=== PATIENT | female | born 1990 | race Caucasian/White ===

== ENCOUNTER → 2021-05-19 15:27 | Outpatient (CLI) | payer OTHER, SELFPAY ==
--- NOTE | ~2021-05-19 | XR_ITS ---
XR foot RT min 3V 05/19/2021 15:47 INDICATION: Right foot pain for 10 months PROCEDURE: 4 views right foot COMPARISON: No prior studies for comparison. FINDINGS: Fracture, dislocation or subluxation is not identified. Lisfranc joint is intact. The soft tissues appear within normal limits. No foreign bodies are identified. IMPRESSION: 1: NO ACUTE BONE OR JOINT ABNORMALITY IDENTIFIED. Reviewed, dictated and finalized at location B. 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
--- NOTE | ~2021-05-19 | XR_ITS ---
XR shoulder RT min 2V 05/19/2021 15:49 INDICATION: Right shoulder pain after recent fall PROCEDURE: 4 views right shoulder COMPARISON: No prior studies for comparison. FINDINGS: Fracture, dislocation or subluxation is not identified. The soft tissues appear within norm al limits. No foreign bodies are identified. IMPRESSION: 1: NO ACUTE BONE OR JOINT ABNORMALITY IDENTIFIED. Reviewed, dictated and finalized at location B. 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
== END ==
PROVIDERS: PCP Nurse Practitioner Family; Visit Provider Nurse Practitioner Family
DX: M25.511 Pain in right shoulder (principal); M79.671 Pain in right foot
CPT/HCPCS: 73030; 73630

== ENCOUNTER 2022-01-12 08:15 | Outpatient (RCR) | payer OTHER, SELFPAY ==
--- NOTE | 2021-10-22 14:37 | PTOPEVAL ---
PHYSICAL THERAPY EVALUATION AND PLAN OF CARE Thank you for referring Pooja Khoury to [facility] [place] The patient is scheduled to be seen for therapy?1-2X/week for 4 weeks. Please review, sign, date and return this plan of care MYRNA. I agree with and certify that the following plan of care is medically necessary. Referring Physician Date Attending Provider: Alla Salinas NP Diagnosis right foot pain, right shoulder pain Onset 1.5 years ago Subjective Information right foot pain: started to Query Text:As Reported By Patient/ have pain from being on her Family feet and has persisted for over a year with associated compensations and now pain in the bottom of the foot. Is painful throughout the day but worst first thing in the morning and after being on her feet all day she will sit and then to stand up is very painful. right shoulder pain: was sledding and she fell and her shoulder was hyperextended. It clicks and she hears crepitus . Feels like her ROM is limited and she always has a little achey pain. Self Report Pain Assessment Right Foot/Feet Reported Pain Level 4 Pain Description Sharp Pain Frequency Chronic,Intermittent Lowest Pain Intensity 2 Greatest Pain Intensity 9 Pain Aggravating Factors Walking,Weight Bearing/ Standing Right Shoulder(s) Reported Pain Level 3 Pain Description Aching Pain Frequency Acute,Intermittent Other Pain Aggravating Factors elevation; sleeping Pain Score Pain Score 3,4: Self Report Interventions Used Interventions Used By Clinicians Education,Exercise Pain Relief Interventions Used By Inactivity/Rest Patient Upper Extremity Range of Motion General Upper Extremity Range of Motion Gross Upper Extremity Range of Motion generally WFL with limited end Comments range bilaterally; behind back IR both scpaula wing Lower Extremity Range of Motion Ankle/Foot Range of Motion Right Ankle Dorsiflexion With Knee Extension 12 Range of Motion - Active Ankle Plantarflexion Range of Motion - 55 Active Query Text: Ankle Eversion Range of Motion - Active 20 Ankle Inversion Range of Motion - A
--- NOTE | 2021-12-04 15:12 | PCPTNOTE ---
Addendum entered by Michelle Manuel, PT 12/05/21 08:56: 12-05-21: entered in ERROR---pt had called for reevaluation appt for today, to continue therapy; see reevaluation/progress report and continue PT treatment Original Note: PHYSICAL THERAPY DISCHARGE REPORT 12-04-21 Attending Provider: Alla Salinas NP Patient:Pooja Kohury Date of :1990 Pooja has not returned for any further treatments since 10/31/2021, therefore she will be discharged at this time. She received 4 PT sessions, from October 22 to October 31, for the diagnosis of R shoulder pain and R foot pain. Then stopped attending therapy. The goals were not addressed. Thank you for referring this patient to [facility].
--- NOTE | 2021-12-05 08:46 | PTOPPROG ---
Evaluation Information Assessment Status Re-evaluation Subjective Information Pooja reports: certain motions of shoulder still hurt-different from before, but still hurts; heel is still a problem--pain varies week to week; have been trying to keep up with the exercises; sometimes work 10 hours and pain increases then; have been going to the fitness center and doing arm weights and aerobic exercises; want to continue therapy for her shoulder and foot; pain rating R shoulder 3-7/10 and R foot/heel 2-9/10. Assessment PT Clinical Summary Pooja has received 4 PT sessions from October 22 to October 31; then stopped attending therapy. Then called for today's reeval appt. Compared to the initial evaluation: pain rating at the low is the same and high rating for foot decreased from 9 to 7/10 and shoulder increased from 4 to 7/10; slight increase in ankle strength She has been educated on a home exercise program and correct posture; She continues to have increased pain with standing and walking over foot and with shoulder- use of arm with overhead tasks and lifting, with poor scapular-humeral rhythm and winging of scapula. Continue PT treatment for R shoulder impingement and R plantar fascitis. Plan of Care Interventions Electrical Stimulation,Hot Pack/Cold Pack,Manual Therapy,Neuro Re-education,Patient/Caregiver Education,Therapeutic Activities,Therapeutic Exercise,Ultrasound PT Services Indicated Yes Treatment Frequency and 2x/wk for 4 weeks Duration These treatments will address the objective and functional deficits as defined above. The patient will be advanced safely and appropriately in order for the patient to progress towards his/her prior level of function. Additional exercises will be introduced and as well as a comprehensive home exercise program upon discharge, if needed, ?to ensure carryover of functional gains achieved in the clinic. This treatment plan has been reviewed and agreement upon by the patient.
--- NOTE | 2021-12-16 09:59 | PCPTNOTE ---
Patient did not show up for scheduled appointment this date. Called patient and reminded her of her next appointment.
--- NOTE | 2022-01-01 11:51 | PTOPPROG ---
Assessment and note entered by Michelle Manuel, PT Evaluation Information Assessment Status Re-evaluation/progress Subjective Information Pooja reports shoulder is better; foot is about the same, depends upon what she has done; have new shoes for work that help some; pain moves in her foot-always at the heel but moves along front part of foot; Assessment PT Clinical Summary Pooja has had 12 PT sessions for R foot and R shoulder pain. Compared to the last reeval: pain in foot is the same at the low rating and increased at high rating from 7 to 8/10; she does have new, more supportive shoes for work; shoulder pain rating decreased both low and high ratings, from 3-7/10 to 1-5/10; strength of R shoulder has improved- no longer has the winging of her scapula; R foot and ankle strength has improved with single leg PF from 8 to 23 reps; Modalities are decreasing her foot pain; continue PT treatment for her foot; discontinue treatment for her shoulder--to continue with the home exercises and monitoring her posture. Plan of Care Interventions Electrical Stimulation,Hot Pack/Cold Pack,Manual Therapy,Therapeutic Activities,Therapeutic Exercise,Ultrasound,Other Other Interventions fluidotherapy PT Services Indicated Yes Treatment Frequency and 2x/wk for 3 weeks Duration These treatments will address the objective and functional deficits as defined above. The patient will be advanced safely and appropriately in order for the patient to progress towards his/her prior level of function. Additional exercises will be introduced and as well as a comprehensive home exercise program upon discharge, if needed, ?to ensure carryover of functional gains achieved in the clinic. This treatment plan has been reviewed and agreement upon by the patient.
--- NOTE | 2022-01-13 15:51 | PCPTNOTE ---
This treatment is being continued on visit number [id number]. Please see documentation on both accounts to view progress. Completed interventions, outcomes, and problems have been marked as Inactive to facilitate the copying of the Care plan routine for recurring accounts.
== END 2022-01-13 15:36 | disposition home or self-care (01) ==
LOC: ANHPT 08:15
PROVIDERS: PCP Nurse Practitioner Family; Visit Provider Nurse Practitioner Family
DX: M25.511 Pain in right shoulder (principal); M79.671 Pain in right foot
CPT/HCPCS: 97035; 97110; 97112; 97140; 97162; 99199

== ENCOUNTER 2022-01-30 09:30 | Outpatient (RCR) | payer OTHER, SELFPAY ==
--- NOTE | 2022-01-19 10:35 | PCPTNOTE ---
Patient called & cancelled scheduled appointment this date due to being called to pick child up from school unexpectedly.
--- NOTE | 2022-01-21 08:26 | PCPTNOTE ---
Patient did not show up for scheduled appointment this date; called patient who stated she thought it was later in the week either or Wednesday apologized and will keep her informed on any cancellations.
--- NOTE | 2022-01-30 10:21 | PTOPDC ---
Assessment and note entered by Michelle Manuel, PT Evaluation Information Assessment Status Discharge Subjective Information Pooja reports: have been working more, continue to do 10 hour shifts; no longer have the heel pain in foot, trying to walk better with weight on entire bottom of foot and not favor the arch area feel like she is ready to be finished with therapy; Reported Pain Level Pain Score Self Report Additional Pain Score Comments pain range of 2-6/10, R bottom of foot mid to distal aspect/ metatarsal to ball of foot; tight, sore, tender to touch; increase with walking and standing, can do what she needs to do, but when sit down hurts; pain when first get up out of bed ; decrease pain with rubbing foot, stretching; is using ice, but not as much anymore; leukotape strip horizontal over distal forefoot, to stabilize metatarsals; Assessment PT Clinical Summary Pooja has received a total of 16 PT sessions for the diagnosis of R plantar fasciitis and R shoulder impingement. Since the last reeval of the foot: pain rating at the low rating is the same 2/10 and worst rating has decreased from 8 to 6/10; the pain is no longer in her heel, only along the distal aspect of her 5th metatarsal; there is not any tenderness over heel or arch of foot with palpation; She reports that she is able to do all of her work and home tasks, but when she sits down, has more pain. And pain when she first wakes up in the morning. Education has been completed for home exercises, management techniques for pain. The goals were partially met. Discharge PT services. Plan of Care PT Services Indicated No
== END 2022-02-02 12:22 | disposition home or self-care (01) ==
LOC: ANHPT 09:30
PROVIDERS: PCP Nurse Practitioner Family; Visit Provider Nurse Practitioner Family
DX: M25.511 Pain in right shoulder (principal); M79.671 Pain in right foot
CPT/HCPCS: 97035; 97110; 97140; 99199

== ENCOUNTER 2022-04-24 13:52 | Emergency (ER) | payer OTHER, SELFPAY ==
[2022-04-24 14:01] VITALS: BP 123/60; PULSE 69; RESP 18; TEMP 36.3; O2SAT 100
[2022-04-24 14:03] VITALS: BP 123/60; PULSE 69; RESP 18; TEMP 36.3; O2SAT 100
--- NOTE | 2022-04-24 14:11 | ED.URI ---
HPI - URI/Sore Throat General Chief Complaint: Upper Respiratory Infection Stated Complaint: Ear/Nose/ Throat Time Seen by Provider: 04/24/22 14:11 Source: patient, RN notes reviewed and old records reviewed Mode of arrival: ambulatory Limitations: no limitations History of Present Illness HPI Narrative: 31 year old female who presents to [facility] care with complaints of ear fullness, ear pain, sinus drainage, sneezing, sore throat, cough for the past 4 days with no known fevers. Patient reports that she has been taking Daytime cold and flu OTC medications. Patient reports thatshe has had COVID vaccinations but no flu shot, patient reports home Covid test negative today. Patient denies any shortness of breath or any body aches or chills. MD elicited complaint: cough, sore throat, rhinorrhea, nasal congestion and other (ear pain) Onset (ago): day(s) (4) Pain scale (0-10): 5 Treatments prior to arrival: other (Daytime cold and flu medication) Related Data Home Medications Medication Instructions Recorded Confirmed drospirenone 3 mg-ethinyl 1 tablet PO DAILY 05/19/21 04/24/22 estradiol 0.02 mg tablet inulin 2 gram chewable tablet 2 g PO DAILY 05/19/21 04/24/22 (Fiber Gummies) magnesium 250 mg tablet 250 mg PO DAILY 05/19/21 04/24/22 spironolactone 25 mg tablet 25 mg PO DAILY 05/19/21 04/24/22 Allergies Allergy/AdvReac Type Severity Reaction Status Date / Time Sulfa (Sulfonamide AdvReac Nausea Verified 04/24/22 14:01 Antibiotics) Review of Systems Review of Systems: CONSTITUTIONAL: Denies malaise, chills, sweats, or fever. EYES: Denies visual changes, redness, or discharge. ENT: Reports rhinorrhea, congestion, sinus pain, otalgia and sore throat. CARDIOVASCULAR: Denies chest pain, palpitations, or edema. RESPIRATORY: Reports cough.? Denies dyspnea. GASTROINTESTINAL: Denies abdominal pain, nausea, vomiting, diarrhea SKIN: Denies rash or itching. MUSCULOSKELETAL: Denies myalgia. NEUROLOGIC: Denies headache. All systems reviewed & are unremarkable except as noted in HPI and below PMFSH Past Medical History Medical History Acephalgic migraine Acne Anxiety BMI 26.0-26.9,adult BMI 27.0-27.9,adult BMI 28.0-28.9,adult Cystic acne Depression Elevated fasting glucose Encounter to establish care Mitral valve prolapse Ophthalmic migraine Right foot pain Right shoulder pain Surgical History Surgical History No pertinent past surgical history Family History Family History Mother Hypertension Depression Father Non Hodgkin's lymphoma Sibling Depression Grandparent Breast cancer Bladder cancer Esophageal cancer Grandparent Cancer Social History Social History Smoking status: Never smoker Alcohol intake: current Substance use: never Lack of Transportation: No Lack of Food: Never True Current Housing: I Have Housing Concerned About Future Housing: No Difficulty Paying Gas/Electric Bills: No Difficulty Paying for Meds: No Currently Unemployed: No Education: Associate Degree Difficulty w/ Childcare or Family Care: No Comments At time of signature, agree with nursing past medical, surgical, social and family history. There is no relevant family history pertinent to the presenting complaint Exam Narrative: GENERAL: Well-appearing, well-nourished, and in no acute distress. HEAD: Normocephalic EYES: PERRLA, conjunctivae clear ENT: Nares clear, turbinates edematous and erythematous, clear discharge. Mucous membranes moist.Left TM dull and bulging, Right TM pearly torres with dull light reflex; no tragal tenderness. Oropharynx erythematous without lesions. Tonsils not enlarged and without exudate, no drooling, no hoarseness, no trismus, uvu
== END 2022-04-24 14:58 | disposition home or self-care (01) ==
PROVIDERS: Emergency Provider Registered Nurse; PCP Nurse Practitioner Family
DX: H66.92 Otitis media, unspecified, left ear (principal); I34.1 Nonrheumatic mitral (valve) prolapse; F41.9 Anxiety disorder, unspecified; F32.A Depression, unspecified
CPT/HCPCS: 87081; 87880; 99213; G0463

== ENCOUNTER 2022-07-20 18:16 | Emergency (ER) | payer OTHER, SELFPAY ==
[2022-07-20 18:30] VITALS: BP 131/68; PULSE 71; RESP 16; TEMP 37.1; O2SAT 100
--- NOTE | 2022-07-20 18:35 | ED.URI ---
HPI - URI/Sore Throat General Chief Complaint: Upper Respiratory Infection Stated Complaint: Sore Throat Time Seen by Provider: 07/20/22 18:35 Source: patient Mode of arrival: ambulatory Limitations: no limitations History of Present Illness HPI Narrative: 32-year-old female presents with complaint of sinus congestion, sinus pain, postnasal drainage, sore throat for 10 days. Is not taking any [id number] medications to treat her symptoms. Afebrile. Reports throat pain worse the past few days. Denies nausea vomiting diarrhea. No chest pain or shortness of breath. All systems reviewed and negative except as noted above. Related Data Home Medications Medication Instructions Recorded Confirmed drospirenone 3 mg-ethinyl 1 tablet PO DAILY 05/19/21 07/20/22 estradiol 0.02 mg tablet spironolactone 25 mg tablet 25 mg PO DAILY 05/19/21 07/20/22 Allergies Allergy/AdvReac Type Severity Reaction Status Date / Time Sulfa (Sulfonamide AdvReac Nausea Verified 04/24/22 14:01 Antibiotics) Review of Systems Review of Systems: CONSTITUTIONAL: Denies fever, chills, or sweats. EYES: Denies visual changes, redness, or discharge. ENT: Reports rhinorrhea, congestion, sore throat, sinus pain, bilateral ear pressure. CARDIOVASCULAR: Denies chest pain, palpitations, or edema. RESPIRATORY: Denies cough or dyspnea. GASTROINTESTINAL: Denies abdominal pain, nausea, vomiting, or diarrhea. GENITOURINARY: Denies dysuria or hematuria. SKIN: Denies rash or itching. MUSCULOSKELETAL: Denies back pain, joint pain, or myalgia. NEUROLOGIC: Denies headache, numbness, or weakness. PSYCHIATRIC: Denies anxiety or depression. All other systems reviewed are negative, except as documented in HPI. [facility] Past Medical History Medical History Acephalgic migraine Acne Anxiety BMI 26.0-26.9,adult BMI 27.0-27.9,adult BMI 28.0-28.9,adult Cystic acne Depression Elevated fasting glucose Encounter to establish care Mitral valve prolapse Ophthalmic migraine Right foot pain Right shoulder pain Surgical History Surgical History No pertinent past surgical history Family History Family History Mother Hypertension Depression Father Non Hodgkin's lymphoma Sibling Depression Grandparent Breast cancer Bladder cancer Esophageal cancer Grandparent Cancer Social History Social History Smoking status: Never smoker Alcohol intake: current Substance use: never Lack of Transportation: No Lack of Food: Never True Current Housing: I Have Housing Concerned About Future Housing: No Difficulty Paying Gas/Electric Bills: No Difficulty Paying for Meds: No Currently Unemployed: No Education: Associate Degree Difficulty w/ Childcare or Family Care: No Comments At time of signature, agree with nursing past medical, surgical, social and family history. There is no relevant family history pertinent to the presenting complaint. Exam Narrative: GENERAL: This is a well-nourished, well-developed patient, in no apparent distress. HEAD: normocephalic, atraumatic. EYES: PERRL. Sclera clear/white. Vision is grossly intact. EARS: External ears normal, auditory canals clear and without drainage, TMs normal without perforation. Hearing grossly intact. NOSE: External nose normal with Clear nasal drainage with erythema to both nares. Bilateral maxillary sinus tenderness. THROAT: Mucous membranes moist, Mild erythema postnasal drainage. NECK: Neck supple, non-tender without lymphadenopathy, masses or thyromegaly. CARDIOVASCULAR: Regular rate and rhythm without murmurs, gallops, or rubs. RESPIRATORY: Clear to auscultation. Breath sounds equal bilaterally. No wheezes, rales, or rhonchi. SKIN: warm, Dry
== END 2022-07-20 18:47 | disposition home or self-care (01) ==
PROVIDERS: Emergency Provider Nurse Practitioner Family; PCP Nurse Practitioner Family
DX: J01.90 Acute sinusitis, unspecified (principal); I34.1 Nonrheumatic mitral (valve) prolapse; F41.9 Anxiety disorder, unspecified; F32.A Depression, unspecified
CPT/HCPCS: 87081; 87880; 99213; G0463

== ENCOUNTER 2022-08-22 16:37 | Emergency (ER) | payer OTHER, SELFPAY ==
[2022-08-22 16:40] VITALS: BP 130/80; PULSE 90; RESP 18; TEMP 36.5; O2SAT 100
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
== END 2022-08-22 17:47 | disposition home or self-care (01) ==
PROVIDERS: Emergency Provider Physician Assistant; PCP Nurse Practitioner Family
DX: M54.2 Cervicalgia (principal); F32.A Depression, unspecified; F41.9 Anxiety disorder, unspecified; V43.52XA Car driver injured in collision with other type car in traffic accident, initial encounter
CPT/HCPCS: 99283

== ENCOUNTER → 2024-05-05 13:32 | Outpatient (CLI) | payer OTHER, SELFPAY ==
--- NOTE | ~2024-05-05 | XR_ITS ---
EXAMINATION: XR foot RT min 3V DATE: 05/05/2024 13:48 INDICATION: Right foot pain TECHNIQUE: Dorsoplantar, two oblique and lateral views of the right foot were obtained. COMPARISON: 05/19/2021 FINDINGS: Bone alignment is normal. No fracture. Joint spaces are normal. Small plantar calcaneal spur. Soft ti ssues are unremarkable. IMPRESSION: 1. Small plantar calcaneal spur. Otherwise unremarkable right foot radiographs. Reviewed, dictated and finalized at location B. [facility] PICKER
--- OUTSIDE RECORDS SUMMARY | 2024-05-05 13:35 | XMS_ITS | Clinical Summary ---
Author Organization [facility] [employer] Address [address] [place] [address] Care Team Providers Care Digital Retoucher Name Role Phone Patricia Martinez ISAIAH-UNIFORM MAKER Primary Care Provider [phone] Source Comments [facility] [employer],non-owned Affiliates and Associated Physician Practices is amultiple site organization consisting of ambulatory clinics and hospital sitesin [place], [place], [place] and [place]. This disclosure is being madepursuant to the Care Everywhere program and may not contain all information available regarding this patient. Last updated 17.[facility] [employer] Allergies Active Allergy Reactions Criticality Noted Date Comments Sulfa Drugs Nausea and/or Vomiting 04/01/2017 Medications * Be aware that medications may not be up to date on this document. Alwaysverify current medications with the patient. Medication Sig Dispensed Refills Start Date End Date Status LORazepam (ATIVAN) 0.5 MG tablet 10/11/2018 Active NUVARING 0.12-0.015 MG/24HR vaginal ring 4 01/02/2019 Active Immunizations Name Administration Dates Next Due INFLUENZA VACCINE 01/10/2019 Family History Medical History Relation Name Comments Lymphoma Father Cancer - Bladder Maternal Grandfather Cancer - Esophageal Maternal Grandfather Cancer - Breast Maternal Grandmother Cancer-Breast Premenopausal Maternal Grandmother Cancer - Breast Maternal Great-Grandmother Cancer - Liver Maternal Uncle Cancer - Breast Paternal Aunt Relation Name Status Comments Father Maternal Grandfather Maternal Grandmother diagnos ed at 40 years Maternal Great-Grandmother Maternal Uncle Paternal Aunt Social History Tobacco Use Types Packs/Day Years Used Date Smoking Tobacco: Never Smokeless Tobacco: Never Alcohol Use Standard Drinks/Week Comments Yes 0 (1 standard drink = 0.6 oz pur e alcohol) AUDIT-C Answer Date Recorded Frequency of Alcohol Consumption 2-3 times a wee k 12/28/2018 Average Number of Drinks 3 or 4 019 Frequency of Binge Drinking Less than monthly Sex and Gender Information Value Date Recorded Sex Assigned at Not on file Gender Identity Not on file Sexual Orientation Not on file Last Filed Vital Signs Vital Sign Reading Time Taken Comments Blood Pressure 115/64 02/15/2019 1:56 PM YARD LABORER Pulse 88 02/15/2019 1:56 PM YARD LABORER Temperature 37.3 C (99.1 F) 02/15/2019 1:56 PM YARD LABORER Respiratory Rate 20 02/15/2019 1:56 PM YARD LABORER Oxygen Saturation 99% 02/15/2019 1:56 PM YARD LABORER Inhaled Oxygen Concentration - - Weight 59.9 kg (132 lb) 02/15/2019 1:56 PM YARD LABORER Height 160 cm (5' 3 ) 02/15/2019 1:56 PM YARD LABORER Body Mass Index 23.38 02/15/2019 1:56 PM YARD LABORER Plan of Treatment Health Maintenance Due Date Last Done Comments PAP SMEAR 1989 HIV SCREENING 2004 HEPATITIS C SCREENING 05/24/2007 DTAP/TDAP/TD VACCINES (1 - Tdap) 2008 HEPATITIS B VACCINE (1 of 3 - 19+ 3-dose series) 2008 COVID-19 VACCINE ( - 2023-2 5 season) 2023 INFLUENZA VACCINE (#1) 2023 9, 01/10/2019 DEPRESSION SCREENING 03/29/2024 ZOSTER VACCINE (1 of 2) 05/29/2039 HIB VACCINE Aged Out No longer eligi ble based on patient's age to complete this topic HPV VACCINE Aged Out No longer eligi ble based on patient's age to complete this topic MENINGOCOCCAL (Group B) VACCINE Aged Out No longer eligible b ased on patient's age to complete this topic MENINGOCOCCAL VACCINE Aged Out No venus abelardo eligible based on patient's age to complete this topic PNEUMOCOCCAL VACCINE Aged Out No long er eligible based on patient's age to complete this topic Care Teams Digital Retoucher Relationship Specialty Start Date End Date Patricia Martinez APRN-DARWIN [address] [place] [address] PCP - General 12/28/18
--- OUTSIDE RECORDS SUMMARY | 2024-05-05 13:35 | XMS_ITS | Clinical Summary ---
Author Organization [facility] Care Team Providers Care Car Painter Name Role Phone Unavailable Primary Care Provider Unavailabl e Social History Tobacco Use Types Packs/Day Years Used Date Smoking Tobacco: Never Assessed Comments Unknown Sex and Gender Information Value Date Recorded Sex Assigned at Not on file Legal Sex Female 2:16 PM CNC SERVICE ENGINEER Gender Identity Not on file Sexual Orientation Not on file Plan of Treatment Health Maintenance Due Date Last Done Comments Hepatitis C Virus (HCV) Screening 1989 Pap Smear 2010 Cervical Cancer Screening (CCS) 05/29/2019 HPV/Cotest 05/29/2019 Hepatitis B Immunization (2 of 3 - 19+ 3-dose series) 08/29/2019 08/01/2019 Influenza Immunization (#1) 2023 01/27/2019 SARS-COV-2 Immunization (2023- season) 2023 Respiratory Syncytial Virus (RSV) Immunization (Adult) (1 - 1-dose 75+ series) 2064 DTaP/Tdap/Td Immunization Discontinued 2014, 10/22/1994 TdaP Immunization Completed 04/04/2014 Meningococcal Immunization (ACWY) Aged Out No longer eligible based on patient's age to complete this topic Pneumococcal Immunization Combined Aged Out No longer eligible based on patient's age to complete this topic Rotavirus Immunization Aged Out No lo nger eligible based on patient's age to complete this topic
--- OUTSIDE RECORDS SUMMARY | 2024-05-05 13:35 | XMS_ITS | Patient Health Summary ---
Author Organization [facility] Address [address] [place] [address] Care Team Providers Care Library Media Specialist Name Role Phone Patricia Martinez APRN-CYLINDER BATCHER Primary Care Provider [phone] Note from [facility],non-owned Affiliates and Associated Physician Practices is amultiple site organization consisting of ambulatory clinics and hospital sitesin [place], [place], [place] and [place]. This disclosure is being madepursuant to the Care Everywhere program and may not contain all information available regarding this patient. Last updated 17.[facility] Allergies * Sulfa Drugs(Nausea and/or Vomiting) Medications * Be aware that medications may not be up to date on this document. Alwaysverify current medications with the patient. * LORazepam (ATIVAN) 0.5 MG tablet(Started 10/11/2018) * NUVARING 0.12-0.015 MG/24HR vaginal ring(Started 01/02/2019) 4 refills left Immunizations * INFLUENZA VACCINE(Given 01/10/2019) Social History Tobacco Use Types Packs/Day Years [...] Comments Blood Pressure 115/64 02/15/2019 1:56 PM DELIVERY PERSON Pulse 88 02/15/2019 1:56 PM DELIVERY PERSON Temperature 37.3 C (99.1 F) 02/15/2019 1:56 PM DELIVERY PERSON Respiratory Rate 20 02/15/2019 1:56 PM DELIVERY PERSON Oxygen Saturation 99% 02/15/2019 1:56 PM DELIVERY PERSON Inhaled Oxygen Concentration - - Weight 59.9 kg (132 lb) 02/15/2019 1:56 PM DELIVERY PERSON Height 160 cm (5' 3 ) 02/15/2019 1:56 PM DELIVERY PERSON Body Mass Index 23.38 02/15/2019 1:56 PM DELIVERY PERSON Procedures * US BREAST BILATERAL COMPLETE(Performed 02/15/2019) Performed for Lump or mass in breast * MAMMO BILAT SCREENING(Performed 02/15/2019) Performed for Screening for breast cancer * US BREAST RIGHT LTD(Performed 12/28/2018) Performed for Lump or mass in breast * SONOGRAM - COMPLETE(Performed 07/25/2012) Results * US BREAST BILATERAL COMPLETE (02/15/2019 4:10 PM DELIVERY PERSON) Anatomical Region Laterality Modality Breast Bilateral Mammography 02/15/2019 3:26 PM DELIVERY PERSON Impressions 02/15/2019 4:18 PM DELIVERY PERSON IMPRESSION: The right breast palpable lump corresponds to a lipoma. No mammographic or sonographic abnormalities in the areas of clinical concern in the left breast. Clinical management is recommended and should be based on clinical suspicion. No mammographic or sonographic evidence of malignancy in either breast. ASSESSMENT: BI-RADS Category 2: Benign finding(s). RECOMMENDATION: Clinical follow-up and management for symptoms. This report was electronically signed by NADIRA CHANDLER M.D. on 02/15/2019 4:18 PM . Narrative 02/15/2019 4:18 PM DELIVERY PERSON BILATERAL DIAGNOSTIC MAMMOGRAM COMPLETE BILATERAL BREAST ULTRASOUND DATE: 02/15/2019 COMPARISON: None. This is a baseline exam. HISTORY: Screening mammogram. She has a family history of breast cancer in a paternal aunt and maternal grandmother and great grandmother. TECHNIQUE: Images were performed using 3D tomosynthesis images with reconstructed/synthetic 2D images and CAD analysis. BREAST COMPOSITION: The breasts are heterogeneously dense, which may obscure small masses. FINDINGS: Sugarcreek markers aparna the areas of clinical concern in the breasts. Subjacent to the marker in the lower right breast, there is a 3 cm fat density mass. There is no suspicious mass subjacent to the left breast palpable marker. No suspicious mass or calcifications in either breast. Ultrasound of all 4 quadrants, the subareolar breasts, and the axillae performed by the gas line servicer. Ultrasound of the left breast areas of symptoms also performed by the physician. She points to a palpable abnormality in the right breast at 6:00, 5 cm from the nipple. It corresponds to a fat density oval circumscribed mass that measures 3.6 cm. It is similar compared to the prior exam and consistent with a lipoma. She points to palpable abnormalities in the left breast at 11:00 and at 12:30 to 1:00. There is no suspicious solid or cystic mass. No suspicious solid or cystic mass in either breast. No axillary lymphadenopathy. Gisselle Huertas MD US ORDERABLES * MAMMO BILAT SCREENING (02/15/2019 3:35 PM DELIVERY PERSON) Anatomical Region Laterality Modality Breast Bilateral Mammography 02/15/2019 3:26 PM DELIVERY PERSON Impressions 02/15/2019 4:18 PM DELIVERY PERSON IMPRESSION: The right breast palpable lump corresponds to a lipoma. No mammographic or sonographic abnormalities in the areas of clinical concern in the left breast. Clinical management is recommended and should be based on clinical suspicion. No mammographic or sonographic evidence of malignancy in either breast. ASSESSMENT: BI-RADS Category 2: Benign finding(s). RECOMMENDATION: Clinical follow-up and management for symptoms. This report was electronically signed by NADIRA CHANDLER M.D. on 02/15/2019 4:18 PM . Narrative 02/15/2019 4:18 PM DELIVERY PERSON BILATERAL DIAGNOSTIC MAMMOGRAM COMPLETE BILATERAL BREAST ULTRASOUND DATE: 02/15/2019 COMPARISON: None. This is a baseline exam. HISTORY: Screening mammogram. She has a family history of breast cancer in a paternal aunt and maternal grandmother and great grandmother. TECHNIQUE: Images were performed using 3D tomosynthesis images with reconstructed/synthetic 2D images and CAD analysis. BREAST COMPOSITION: The breasts are heterogeneously dense, which may obscure small masses. FINDINGS: Sugarcreek markers aparna the areas of clinical concern in the breasts. Subjacent to the marker in the lower right breast, there is a 3 cm fat density mass. There is no suspicious mass subjacent to the left breast palpable marker. No suspicious mass or calcifications in either breast. Ultrasound of all 4 quadrants, the subareolar breasts, and the axillae performed by the gas line servicer. Ultrasound of the left breast areas of symptoms also performed by the physician. She points to a palpable abnormality in the right breast at 6:00, 5 cm from the nipple. It corresponds to a fat density oval circumscribed mass that measures 3.6 cm. It is similar compared to the prior exam and consistent with a lipoma. She points to palpable abnormalities in the left breast at 11:00 and at 12:30 to 1:00. There is no suspicious solid or cystic mass. No suspicious solid or cystic mass in either breast. No axillary lymphadenopathy. Gisselle Huertas MD MAMMO ORDERABLES * US BREAST RIGHT LTD (12/28/2018 1:46 PM CDT) Anatomical Region Laterality Modality Breast Right Mammography 12/28/2018 1:38 PM CDT Impressions 12/28/2018 2:41 PM CDT IMPRESSION: Mass in the lower right breast measuring 3.7 cm, corresponding to the patient's palpable lump, most consistent with a lipoma. ASSESSMENT: BI-RADS Category 2: Benign finding(s). RECOMMENDATION: Clinical follow-up. Findings and recommendations were discussed with the patient by Dr. Landeros. I, Dr. ANKITA LANDEROS M.D. have personally reviewed and interpreted this examination/study. This report was electronically signed by ANKITA LANDEROS M.D. on 12/28/2018 2:41 PM . Narrative 12/28/2018 2:41 PM CDT EXAMINATION: Limited right breast ultrasound HISTORY: 28-year-old female presenting with a palpable lump in the lower right breast COMPARISON: No prior study is available for comparison at the time of this dictation. FINDINGS: Limited ultrasound of the lower right breast was performed by the generation engineering technologist in the region of the patient's palpable lump. At the 6:00 position, 5 cm from the nipple there is a circumscribed mass with antiparallel orientation which is isoechoic to the adjacent fat measuring 3.7 x 2.8 x 0.9 cm, most consistent with a lipoma. Gisselle Huertas MD US ORDERABLES * SONOGRAM - COMPLETE (07/25/2012 11:31 AM CDT) Anatomical Region Laterality Modality Other 07/25/2012 11:3 1 AM CDT Narrative 08/05/2012 6:57 AM CDT [facility] PHONE: FAX: Pat. Name: POOJA KHOURY Pat. No: [id number] Study Date: 07/25/2012 11:31am , Age: 2 1990, 22 Pregnancies: 2, Para 0, Ab 1 LMP: 02/28/2012 GA by LMP: 21.1 weeks GA by US: 19.9 weeks GA Selected: 19.9 weeks (Sonographic) LESLIE: 12/13/2012 Referring MD: AMARILYS CAMPBELL MD Lithograph Press Operator: Tamanna Blanchard RDMS Hist/Ind: Abnormal Quad Screen Negative Maternitiy 21 MEASUREMENTS & AGE GROWTH EVALUATION Measurement GA Range Source %for GA Ratios ---- ------- ------- BPD 4.7 cm 20.2 (18.5-21.9) Hadlock BPD 59% FL/BPD 0.69 HC 16.9 cm 19.6 (18.1-21.1) Hadlock HC 40% FL/AC 0.21 AC 15.5 cm 20.7 (18.6-22.8) Hadlock AC 66% HC/AC 1.09 (1.06 - 1.25) FL 3.2 cm 20.1 (18.3-21.9) Hadlock FL 55% CI 0.78 (0.70 - 0.86) HL 3.0 cm 20.0 (17.3-22.7) Billy HL 52% GA for sonogram 19.9 wk (18.5-21.3) Weight Estimate: based on (BPD,HC,AC,FL) Hadlock Weight: 346 gm (296-397) Hadlock : 0lbs, 12oz Heart Rate: 148.0 bpm CLINICAL SUMMARY Study Number: 1 A gonzalez fetus is identified in cephalic presentation. The measurements today are consistent with appropriate growth compared to previous examination. The LESLIE selected is based on her LMP and a prior ultrasound examination. The amniotic fluid volume is within normal limits. The placenta is anterior, Grade 1. No major malformations are seen. The patient was advised that ultrasound does not allow detection of all structural or chromosomal abnormalities. IMPRESSION: Single, live, IUP 21w1d RECOMMEND: Follow up ultrasound as clinically indicated. Thank you for allowing us the opportunity to care for your patient. Rios Augustine MD <Electronic Signature> 07/25/2012 12:02pm Revised Amarilys Campbell MD Santosh ORDERABLES Care Teams Library Media Specialist Relationship Specialty Start Date End Date Patricia Martinez APRN-CYLINDER BATCHER [address] [place] [address] PCP - General 12/28/18
--- OUTSIDE RECORDS SUMMARY | 2024-05-05 13:35 | XMS_ITS | Referral Summary ---
Author Organization [facility] [employer] Address [address] [place] [address] Care Team Providers Care Retirement Actuary Name Role Phone Patricia Martinez APRN-MASH FILTER CLOTH CHANGER Primary Care Provider [phone] Source Comments [facility],non-owned Affiliates and Associated Physician Practices is amultiple site organization consisting of ambulatory clinics and hospital sitesin [place], [place], [place] and [place]. This disclosure is being madepursuant to the Care Everywhere program and may not contain all information available regarding this patient. Last updated 17.[facility] [facility] Allergies Active Allergy Reactions Criticality Noted Date [...] Administration Dates Next Due INFLUENZA VACCINE 01/10/2019 Social History Tobacco Use Types Packs/Day Years [...] Comments Blood Pressure 115/64 02/15/2019 1:56 PM COMMUNITY ADVOCATE Pulse 88 02/15/2019 1:56 PM COMMUNITY ADVOCATE Temperature 37.3 C (99.1 F) 02/15/2019 1:56 PM COMMUNITY ADVOCATE Respiratory Rate 20 02/15/2019 1:56 PM COMMUNITY ADVOCATE Oxygen Saturation 99% 02/15/2019 1:56 PM COMMUNITY ADVOCATE Inhaled Oxygen Concentration - - Weight 59.9 kg (132 lb) 02/15/2019 1:56 PM COMMUNITY ADVOCATE Height 160 cm (5' 3 ) 02/15/2019 1:56 PM COMMUNITY ADVOCATE Body Mass Index 23.38 02/15/2019 1:56 PM COMMUNITY ADVOCATE Plan of Treatment Not on file Care Teams Retirement Actuary Relationship Specialty Start Date End Date Patricia Martinez APRN-MASH FILTER CLOTH CHANGER [address] [place] [address] PCP - General 12/28/18
--- OUTSIDE RECORDS SUMMARY | 2024-05-05 13:35 | XMS_ITS | Clinical Summary ---
Author Organization [facility] Address [address] [place] [address] Care Team Providers Care Supervisor Pastry Name Role Phone Patricia Martinez HODAN Primary Care Provider [phone] Allergies Active Allergy Reactions Criticality Noted Date Comments Sulfa Antibiotics Unknown,Nausea and Vomiting 0 04/01/2017 Medications Drospirenone-Et hinyl Estradiol (TYSON) 3-0.02 MG TabIndications: Dysmenorrhea Take 1 tablet by mouth daily. 90 tablet 3 0 Active hydrOXYzine 50 MG tabletIndicatio ns:Depression with anxiety,Primary insomnia Take 1-2 capsules every 8 hours as needed for Panic attacks or insomnia 30 tablet 5 0 Active Erythromycin 2 % GelIndications: Acne vulgaris Apply 1 Application topically 2 (two) times a day. 60 g 0 Active CLINDAMYCIN 1 % gelIndications: Acne vulgaris APPLY EXTERNALLY TO THE AFFECTED AREA TWICE DAILY 60 g 0 Active VITAMIN D2, ERGOCALCIFEROL, 34101 UNITS capsuleIndicati ons:Vitamin D deficiency TAKE 1 CAPSULE BY MOUTH EVERY 7 DAYS 13 capsule 0 Active spironolactone 25 MG tabletIndicatio ns:Acne vulgaris Take 1 tablet (25 mg total) by mouth daily. 90 tablet 2 0 Active LORazepam 0.5 MG tabletIndicatio ns:Depression with anxiety TAKE 1 TABLET(0.5 MG) BY MOUTH EVERY 8 HOURS NEEDED FOR ANXIETY 30 tablet 0 Active citalopram 20 MG tabletIndicatio ns:Depression with anxiety Take 1 tablet (20 mg total) by mouth daily. 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 Depression with anxiety 04/01/2017 History of menorrhagia 04/01/2017 Menses, irregular 04/01/2017 Mitral valve prolapse 04/01/2017 Resolved Problems Problem Noted Date Diagnosed Date Resolved Date School physical exam 07/18/2019 020 Immunizations Name Administration Dates Next Due Dtp 10/22/1994 Hepatitis B(Engerix B Adult) 08/01/2019 Influenza Adult (Generic) 01/27/2019 MMR 10/22/1994 Opv 10/22/1994 Tdap (Boostrix) 04/04/2014 Family History Medical History Relation Comments Cancer Father non hodkins Cancer Maternal Grandmother brast Cancer Maternal Uncle Hypertension Mother Diabetes Paternal Grandfather Cancer Paternal Grandmother Heart Paternal Grandmother Relation Status Comments Father Maternal Grandmother Maternal Uncle Mother Paternal Grandfather Paternal Grandmother Social History Tobacco Use Types Packs/Day Years Used Date Smoking Tobacco: Never Smokeless Tobacco: Never Alcohol Use Standard Drinks/Week Comments Yes 0 (1 standard drink = 0.6 oz pur e alcohol) AUDIT-C Answer Date Recorded Frequency of Alcohol Consumption 2-3 times a wee k 07/18/2019 Average Number of Drinks 3 or 4 020 Frequency of Binge Drinking Never 06/28 PHQ-2 Answer Date Recorded PHQ-2 Score 3 05/15/2019 Comments No Sex and Gender Information Value Date Recorded Sex Assigned at Not on file Legal Sex Female 7:50 PM CDT Gender Identity Not on file Sexual Orientation Not on file Last Filed Vital Signs Vital Sign Reading Time Taken Comments Blood Pressure 128/76 07/18/2019 1:03 PM CDT Pulse 88 07/18/2019 1:03 PM CDT Temperature 37.3 C (99.2 F) 07/18/2019 1:03 PM CDT Respiratory Rate 18 07/18/2019 1:03 PM CDT Oxygen Saturation 99% 07/18/2019 1:03 PM CDT Inhaled Oxygen Concentration - - Weight 60.3 kg (133 lb) 07/18/2019 1:03 PM CDT Height 161.3 cm (5' 3.5 ) 07/18/2019 1:03 PM CDT Body Mass Index 23.19 07/18/2019 1:03 PM CDT Plan of Treatment Health Maintenance Due Date Last Done Comments Cervical Cancer Screening Pa p Smear (Age 30 to 64) Every 3 Years 1989 Pneumococcal Vaccine: Pediatrics (0 to 5 Years) and At-Risk Patients (6 to 64 Years) (1 of 2 - PCV) 05/29/1995 Hepatitis C 05/29/2007 Cervical Cancer Screening Pa p with HPV Testing (Age 30 to 64) Every 5 Years 05/29/2019 Cervical Cancer Screening wi th HPV 05/29/2019 Hepatitis B Vaccines (2 of 3 - 19+ 3-dose series) 08/29/2019 08/01/2019 Annual Physical 07/17/2020 07/18/2019 COVID-19 Vaccine ( - 2023-2 5 season) 2023 Influenza Adult (#1) 2023 01/27/2019 DTaP, Tdap and Td Vaccines ( 2 - Td or Tdap) 04/04/2024 04/04/2014, 10/22/1994 HPV Vaccines Aged Out No longer eligi ble based on patient's age to complete this topic Meningococcal B Vaccine Aged Out No l onger eligible based on patient's age to complete this topic Meningococcal Vaccine Aged Out No venus abelardo eligible based on patient's age to complete this topic RSV Immunizations Under 20 Months Aged Out No longer eligible b ased on patient's age to complete this topic Insurance [place] Care Teams Supervisor Pastry Relationship Specialty Start Date End Date Patricia Martinez FNP [address] [place] [address] PCP - General NURSE PRACTITIONER 03/29/17
== END ==
PROVIDERS: PCP Nurse Practitioner Family; Visit Provider Nurse Practitioner Family
DX: M77.31 Calcaneal spur, right foot (principal)
CPT/HCPCS: 73630

== ENCOUNTER 2024-07-14 14:33 | Emergency (ER) | payer OTHER, SELFPAY ==
--- NOTE | ~2024-07-14 | XR_ITS ---
XR hand LT min 3V Ordering provider: Xu Sanchez MD History: . left middle finger injury . Comparison: None. FINDINGS: BONES: Oblique fracture of the midshaft of the proximal phalanx of the left middle finger. JOINT SPACES: Well maintained. SOFT TISSUES: Unremarkable. IMPRESSION: Fracture of the proximal phalanx of the middle finger. Reviewed, dictated and finalized at location A.
[2024-07-14 14:34] VITALS: BP 128/71; PULSE 92; RESP 18; TEMP 36.6; O2SAT 99
--- OUTSIDE RECORDS SUMMARY | 2024-07-14 14:35 | XMS_ITS | Clinical Summary ---
Author Organization [facility] Care Team Providers Care Dairy Feed Sales Consultant Name Role Phone Unavailable Primary Care Provider Unavailabl e Social History Tobacco Use Types Packs/Day Years Used Date Smoking Tobacco: Never Assessed Comments Unknown Sex and Gender Information Value Date Recorded Sex Assigned at Not on file Legal Sex Female 2:16 PM EMPLOYEE RELATIONS SPECIALIST Gender Identity Not on file Sexual Orientation [...]
--- OUTSIDE RECORDS SUMMARY | 2024-07-14 14:36 | XMS_ITS | Clinical Summary ---
Author Organization [facility] Address [address] [place] [address] Care Team Providers Care Fruit Or Nut Farmer Name Role Phone Patricia Martinez APRN-FIRST RESPONDER Primary Care Provider [phone] Source Comments [facility],non-owned Affiliates and Associated Physician Practices is amultiple site organization consisting of ambulatory clinics and hospital sitesin [place], [place], [place] and [place]. This disclosure is being madepursuant to the Care Everywhere program and may not contain all information available regarding this patient. Last updated 17.[facility] Allergies Active Allergy Reactions Criticality Noted Date Comments Sulfa Drugs Nausea and/or Vomiting 04/01/2017 Medications * Be aware that medications may not be up to date on this document. Alwaysverify current medications with the patient. LORazepam (ATIVAN) 0.5 MG tablet 10/11/2018 Activ e NUVARING 0.12-0.015 MG/24HR vaginal ring 4 01/02/2019 Active Immunizations Immunization Administration Dates Next Due INFLUENZA VACCINE 01/10/2019 [...] Frequency of Binge Drinking Less than monthly Comments No Sex and Gender Information Value Date Recorded Sex Assigned at Not on file Legal Sex Female 5:45 AM CHEF ASSISTANT Gender Identity Not on file Sexual Orientation Not on file Last Filed Vital Signs Vital Sign Reading Time Taken Comments Blood Pressure 115/64 02/15/2019 1:56 PM CHEF ASSISTANT Pulse 88 02/15/2019 1:56 PM CHEF ASSISTANT Temperature 37.3 C (99.1 F) 02/15/2019 1:56 PM CHEF ASSISTANT Respiratory Rate 20 02/15/2019 1:56 PM CHEF ASSISTANT Oxygen Saturation 99% 02/15/2019 1:56 PM CHEF ASSISTANT Inhaled Oxygen Concentration - - Weight 59.9 kg (132 lb) 02/15/2019 1:56 PM CHEF ASSISTANT Height 160 cm (5' 3 ) 02/15/2019 1:56 PM CHEF ASSISTANT Body Mass Index 23.38 02/15/2019 1:56 PM CHEF ASSISTANT Plan of Treatment Health Maintenance Due Date Last Done Comments HIV SCREENING 2004 HEPATITIS C SCREENING 05/24/2007 DTAP/TDAP/TD VACCINES (1 - Tdap) 2008 HEPATITIS B VACCINE (1 of 3 - 19+ 3-dose series) 2008 COVID-19 VACCINE (1 - 2023-2 5 season) 2023 DEPRESSION SCREENING 03/29/2024 INFLUENZA VACCINE (Season Ended) 2024 01/27/2019, 01/10/2019 ZOSTER VACCINE (1 of 2) 05/29/2039 HIB VACCINE Aged Out No longer eligi ble based on patient's age to complete this topic HPV VACCINE Aged Out No longer eligi ble based on patient's age to complete this topic MENINGOCOCCAL (Group B) VACCINE SHARED DECISION-MAKING Aged Out No longer eligible based on patient's age to complete this topic MENINGOCOCCAL GROUPS A/C/Y/W VACCINE Aged Out No longer eligible b ased on patient's age to complete this topic PNEUMOCOCCAL VACCINE Aged Out No long er eligible based on patient's age to complete this topic Insurance [facility] MEDICAID - [place] Care Teams Fruit Or Nut Farmer Relationship Specialty Start Date End Date Patricia Martinez APRN-DARWIN [address] [place] [id number] PCP - General 12/28/18
--- OUTSIDE RECORDS SUMMARY | 2024-07-14 14:36 | XMS_ITS | Clinical Summary ---
Author Organization [facility] Address [address] [place] [address] Care Team Providers Care Advertising Associate Name Role Phone Patricia Martinez HODAN Primary Care Provider [phone] Allergies Active Allergy Reactions Criticality Noted Date [...] 60 g 0 Active VITAMIN D2, ERGOCALCIFEROL, 41344 UNITS capsuleIndicati ons:Vitamin D deficiency TAKE 1 [...] Date School physical exam 07/18/2019 020 Immunizations Immunization Administration Dates Next Due Dtp 10/22/1994 Hepatitis [...] 30 to 64) Every 3 Years 1989 Hepatitis C 05/29/2007 Pneumococcal Vaccine: Pediatrics (0 to 5 Years) and At-Risk Patients (6 to 49 Years) (1 of 2 - PCV) 2008 Cervical Cancer Screening Pa p with HPV Testing (Age 30 to 64) Every 5 Years 05/29/2019 Cervical Cancer Screening wi th HPV 05/29/2019 Hepatitis B Vaccines (2 of 3 - 19+ 3-dose series) 08/29/2019 08/01/2019 Annual Physical 07/17/2020 07/18/2019 COVID-19 Vaccine (1 - 2023-2 5 season) 2023 DTaP, Tdap and Td Vaccines ( 2 [...] patient's age to complete this topic Insurance [place] Care Teams Advertising Associate Relationship Specialty Start Date End Date Patricia Martinez FNP [address] [place] [address] PCP - General NURSE PRACTITIONER 03/29/17
--- OUTSIDE RECORDS SUMMARY | 2024-07-14 14:36 | XMS_ITS | Data Portability ---
Author Organization [facility] Address [address] [place] [address] Assessment Encounter Date Assessment Date Assessment LastModified by Organization Details LastModified Time 07/29/2021 07/29/2021 Annual gynecological exam performed. Patient will come back in a year unless there are new symptoms. Not available 07/29/2021 15:36:53 01/19/2023 01/19/2023 Annual gynecological exam performed. Patient will come back in a year unless there are new symptoms. [email or web address] Not available 01/19/2023 14:42:02 02/14/2024 02/14/2024 Annual gynecological exam performed. Patient will come back in a year unless there are new symptoms. [email or web address] Not available 02/14/2024 12:01:29 Plan of Treatment Reminders Order Date Submit Date Provider Last Modified By Organization Details Last Modified Time Details Appointments None recorded. Lab hbcab (hepatitis B core Ab) igm, serum 2023 [facility] (Lab), [address], [place], [address], 21:42:54 HBsAg (hepatitis B surface Ag), serum 2023 [facility] (Lab), [address], [place], [address], 4 21:42:53 hepatitis C virus Ab, serum 2023 [facility] (Lab), [address], [place], [address], 4 21:42:54 HIV 1+2 AB + HIV 1 p24 Ag, qualitative immunoassay , serum 2023 024 [facility] (Lab), [address], [place], [address], 4 21:42:54 RPR (rapid plasma reagin), serum 2023 024 [facility] (Lab), [address], [place], [address], 4 21:42:54 CMP, serum or plasma 2023 024 [facility] (Lab), [address], [place], [address], 4 21:42:53 hbcab (hepatitis B core Ab) igm, serum 2022 023 [facility] (Lab), [address], [place], [address], 3 22:14:58 HBsAg (hepatitis B surface Ag), serum 2022 023 [facility] (Lab), [address], [place], [address], 3 22:14:57 hepatitis C virus Ab, serum 2022 023 [facility] (Lab), [address], [place], [address], 3 22:14:57 unlisted lab - HIV 1/2 antigen/ant ibody, reflex confirmatio n 2022 023 [facility] (Lab), [address], [place], [address], 3 22:14:57 RPR (rapid plasma reagin), serum 2022 023 [facility] (Lab), [address], [place], [address], 3 22:14:58 Referral primary care provider referral 2020 021 ROMI Not available 2 05:01:10 Procedures None recorded. Surgeries None recorded. Imaging None recorded. Medication Orders spironolact one 25 mg tablet 2023 024 [facility] #[id number], [address], [place], [id number], 4 12:53:15 norethindro ne (contracept ramiro) 0.35 mg tablet 2023 024 [facility] #[id number], [address], [place], [id number], 4 12:52:07 metronidazo le 500 mg tablet 2022 023 [facility] #94021, [address], [place], [id number], 3 12:43:07 spironolact one 25 mg tablet 2022 023 [facility] #88326, [address], [place], [id number], 3 15:20:52 drospirenon e 3 mg-ethinyl estradiol 0.02 mg tablet 2022 023 [facility] #61718, [address], [place], [id number], 4 12:52:12 drospirenon e 3 mg-ethinyl estradiol 0.02 mg tablet 2021 022 funmilayo [facility] #51731, [address], [place], [id number], 4 12:52:12 spironolact one 25 mg tablet 2021 022 [facility] #47890, [address], [place], [id number], 2 15:54:01 Patient TargetsNo targets recorded. Patient InstructionsNo instructions recorded. Reason for Referral Primary Care Provider Referr al for Anxiety Referring Physician: Aide Yip, DIRECTOR OF EDUCATION, Encounter Date: 10/09/2020 Results Created Date Observation Date Name Description Value Unit Range Abnormal Flag Note LastModifiedBy Organization Detail LastModifiedTime 07/30/19 22 07/29/2021 IMAGE GUIDE D PAP AND HPV REGAR DLESS image guided Pap, HPV regardless of Pap result SEE RESULT S BELOW CASE REPOR T: Cytol ogy Gynec ologi davey Repor t Case: [id number] Autho husam marlys Provi ruiz: Carlton Brandt Colle cted: 07/29 1624 LOG HANDLING EQUIPMENT OPERATOR Order ing Locat ion: [place] [facility] Recei saad: 07/30 0759 First Scree n: Radha [place]ar[place] , CT Rescr een: Austyn Tavarez Speci men: Scree adolfo Pap - Image d, Cervi x STATE MENT OF ADEQU ACY: Satis facto ry for evalu ation Trans forma tion zone compo nent absen t. The absen ce of an endoc ervic al compo nent was confi rmed by an addit ional scree ner. FINAL DIAGN OSIS: Negat ramiro for Intra epith elial Lesio n or An greene (NIL) . Elect chris barney chalo d by Austyn Tavarez on 2021 at 9:58 AM ----- ----- ----- ----- ----- ----- ----- ----- ----- ----- ----- ----- ----- ----- ----- ----- ----- ---- HPV RESUL TS: HPV mRNA E6/E7 : No HPV mRNA Detec sae NOTE: This high risk HPV mRNA assay detec ts fourt een high- risk HPV types (16, 18, 31, 33, 35, 39, 45, 51, 52, 56, 58, 59, 66, 68) witho ut diffe renti ation . COMME NT: Note: This speci men was revie wed by a Cytot echno logis t and/o r Patho logis t (as indic ated in this repor t) after evalu ation using the Thinp rep Imagi ng Syste m. CLINI DAVEY INFOR MATIO N: Menst rual Statu s: LMP (if appli cable ): Clini davey Histo ry/Pr eviou s Pap: Type of Neopl db (if appli cable ): Signi fican t Clini davey Findi ngs: Other Histo ry: Hormo mitra (if appli cable ): PAP EDUCA ESTELA L NOTE: The Pap Test is a scree adolfo test with an inher ent false negat ramiro rate. Liqui d-bas ed sampl ing may decre ase, but will not elimi glenna, false negat ramiro resul ts. A negat ramiro resul t does not precl ude the prese nce and/o r devel opmen t of disea se, since the prese nce of abnor mal cells in the sampl e depen ds on the locat ion of the lesio n and sampl ing techn ique. Janice nued regul ar scree adolfo is the best metho d of cance r preve ntion . If repor sae cytol ogic findi ng do not corre late with physi davey and/o r histo rical findi ngs, furth er inves tigat ion is recom bonnie d, as clini jumana ch nted. Not Available [facility] (Lab) [address], [place], [address], 08/06/2021 11:01:15 07/30/19 22 07/29/2021 TRICH OMONA S VAGIN SAROJ (RRNA ) trichomonas vaginalis ribosomal RNA (rrna) Negati ve negati ve Not Available [facility] (Lab) [address] [facility], [place], [address], 08/06/2021 11:01:16 07/30/19 22 07/29/2021 CT/GC (DANIEL) , THINP REP VIAL chlamydia trachomatis, PCR Negati ve negati ve Not Available [facility] (Lab) [address] [facility], [place], [address], 08/06/2021 11:01:16 07/30/19 22 07/29/2021 CT/GC (DANIEL) , THINP REP VIAL neisseria gonorrhoeae, PCR Negati ve negati ve Not Available [facility] (Lab) [address] [facility], [place], [address], 08/06/2021 11:01:16 01/20/20 23 01/19/2023 HEPAT ITIS B SURFA CE ANTIG EN hepatitis B surface antigen Non-re active non-re active This assay was perfo rmed using [employer] Corpo ratio n reage nts and test kits. Value s obtai chilango with other assay metho ds or kits canno t be used inter jordan eably . Not Available [facility] (Lab) [address] [facility], [place], [address], 01/20/2023 22:14:57 01/20/20 23 01/19/2023 HIV 1/2 ANTIG EN/AN TIBOD Y, REFLE X CONFI RMATI ON HIV antigen/anti body Nonrea ctive nonrea ctive HIV-1 antig en and HIV-1 /HIV- 2 antib odies were not detec sae. No labor atory evide nce of HIV infec tion. Not Available [facility] (Lab) [address] [facility], [place], [address], 01/20/2023 22:14:57 01/20/20 23 01/19/2023 HEPAT ITIS C ANTIB ISABELLA SCREE N, REFLE X TO CONFI RMATI ON hepatitis C antibody Non-re active non-re active Antib odies to HCV Not Detec sae, does not exclu de the possi bilit y of expos ure to HCV. Not Available [facility] (Lab) [address] [facility], [place], [address], 01/20/2023 22:14:57 01/20/20 23 01/19/2023 RPR SCREE N/REF RONY TITER /FTA RPR screen Nonrea ctive nonrea ctive Not Available [facility] (Lab) [address] [place], [address], 01/20/2023 22:14:58 01/20/20 23 01/19/2023 HEPAT ITIS B CORE, IGM hepatitis B core IgM antibody Negati ve negati ve Not Available [facility] (Lab) [address] [place], [address], 01/20/2023 22:14:58 01/20/20 23 01/19/2023 IMAGE GUIDE D PAP AND HPV REGAR DLESS image guided Pap, HPV regardless of Pap result SEE RESULT S BELOW CASE REPOR T: Cytol ogy Gynec ologi davey Repor t Case: [id number] Autho husam frankel Provi ruiz: Natasha Barrios, LOG HANDLING EQUIPMENT OPERATOR Colle cted: 01/19 1632 Order ing Locat ion: [place] [facility] Recei saad: 01/20 0909 First Scree n: Strut z, Willi am, CT Rescr een: Yessica Salinas ay, CT Speci men: Scree adolfo Pap - Image d, Cervi x STATE MENT OF ADEQU ACY: Satis facto ry for evalu ation Trans forma tion zone compo nent prese nt FINAL DIAGN OSIS: Negat ramiro for Intra epith elial Lesio n or Malig jc (NIL) . Trich omona s vagin saroj prese nt. Elect chris barney chalo d by Yessica Salinas, CT on 01/25 at 12:19 PM ----- ----- ----- ----- ----- ----- ----- ----- ----- ----- ----- ----- ----- ----- ----- ----- ----- ---- HPV RESUL TS: HPV mRNA E6/E7 : No HPV mRNA Detec sae NOTE: This high risk HPV mRNA assay detec ts fourt een high- risk HPV types (16, 18, 31, 33, 35, 39, 45, 51, 52, 56, 58, 59, 66, 68) witho ut diffe renti ation . COMME NT: This speci men was revie wed by a Cytot echno logis t and/o r Patho logis t (as indic ated in this repor t) after evalu ation using the Thinp rep Imagi ng Syste m. CLINI DAVEY INFOR MATIO N: Menst rual Statu s: LMP (if appli cable ): Clini davey Histo ry/Pr eviou s Pap: Type of Neopl db (if appli cable ): Signi fican t Clini davey Findi ngs: Other Histo ry: Hormo mitra (if appli cable ): PAP EDUCA ESTELA L NOTE: The Pap Test is a scree adolfo test with an inher ent false negat ramiro rate. Liqui d-bas ed sampl ing may decre ase, but will not elimi glenna, false negat ramiro resul ts. A negat ramiro resul t does not precl ude the prese nce and/o r devel opmen t of disea se, since the prese nce of abnor mal cells in the sampl e depen ds on the locat ion of the lesio n and sampl ing techn ique. Janice nued regul ar scree adolfo is the best metho d of cance r preve ntion . If repor sae cytol ogic findi ng do not corre late with physi davey and/o r histo rical findi ngs, furth er inves tigat ion is recom bonnie d, as mendoza densoned. Not Available [facility] (Lab) [address] [facility], [place], [address], 01/25/2023 13:22:49 01/20/20 23 01/19/2023 TRICH OMONA S VAGIN SAROJ (RRNA ) trichomonas vaginalis ribosomal RNA (rrna) Positi ve negati ve abnormal Not Available [facility] (Lab) [address] [facility], [place], [address], 01/25/2023 13:22:50 01/20/20 23 01/19/2023 CT/GC (DANIEL) , THINP REP VIAL chlamydia trachomatis, PCR Negati ve negati ve Not Available [facility] (Lab) [address] [facility], [place], [address], 01/25/2023 13:22:50 01/20/20 23 01/19/2023 CT/GC (DANIEL) , THINP REP VIAL neisseria gonorrhoeae, PCR Negati ve negati ve Not Available [facility] (Lab) [address] [facility], [place], [address], 01/25/2023 13:22:50 03/04/20 23 03/04/2023 CT/GC AND TRICH OMONA S VAGIN SAROJ (RRNA ), URINE chlamydia trachomatis, PCR Negati ve negati ve Not Available [facility] (Lab) [address] [facility], [place], [address], 03/05/2023 14:21:27 03/04/20 23 03/04/2023 CT/GC AND TRICH OMONA S VAGIN SAROJ (RRNA ), URINE neisseria gonorrhoeae, PCR Negati ve negati ve Not Available [facility] (Lab) [address] [facility], [place], [address], 03/05/2023 14:21:27 03/04/20 23 03/04/2023 CT/GC AND TRICH OMONA S VAGIN SAROJ (RRNA ), URINE trichomonas vaginalis ribosomal RNA (rrna) Negati ve negati ve Not Available [facility] (Lab) [address] [facility], [place], [address], 03/05/2023 14:21:27 02/14/20 24 02/14/2024 CMP(C OMPRE HENSI VE METAB OLIC PANEL ) sodium 138 mmol/ L 133-14 6 Not Available [facility] (Lab) [address] [facility], [place], [address], 02/15/2024 21:42:53 02/14/20 24 02/14/2024 CMP(C OMPRE HENSI VE METAB OLIC PANEL ) potassium 4.0 mmol/ L 3.5-5. 1 Not Available [facility] (Lab) [address] [facility], [place], [address], 02/15/2024 21:42:53 02/14/20 24 02/14/2024 CMP(C OMPRE HENSI VE METAB OLIC PANEL ) chloride 106 mmol/ L 98-107 Not Available [facility] (Lab) [address] [facility], [place], [address], 02/15/2024 21:42:53 02/14/20 24 02/14/2024 CMP(C OMPRE HENSI VE METAB OLIC PANEL ) carbon dioxide 26 mmol/ L 21-31 Not Available [facility] (Lab) [address] [facility], [place], [address], 02/15/2024 21:42:53 02/14/20 24 02/14/2024 CMP(C OMPRE HENSI VE METAB OLIC PANEL ) anion gap 6 mmol/ L 4-13 Not Available [facility] (Lab) [address] [facility], [place], [address], 02/15/2024 21:42:53 02/14/20 24 02/14/2024 CMP(C OMPRE HENSI VE METAB OLIC PANEL ) blood urea nitrogen 11 mg/dL 7-[address] [facility] (Lab) [address] [facility], [place], [address], 02/15/2024 21:42:53 02/14/20 24 02/14/2024 CMP(C OMPRE HENSI VE METAB OLIC PANEL ) creatinine 0.83 mg/dL 0.60-1 .30 Not Available [facility] (Lab) [address] [facility], [place], [address], 02/15/2024 21:42:53 02/14/20 24 02/14/2024 CMP(C OMPRE HENSI VE METAB OLIC PANEL ) egfrcr (CKD-epi 2020) >90 mL/mi n/1.7 3_m2 >=60 Not Available [facility] (Lab) [address] [facility], [place], [address], 02/15/2024 21:42:53 02/14/20 24 02/14/2024 CMP(C OMPRE HENSI VE METAB OLIC PANEL ) calcium 8.6 mg/dL 8.3-10 .5 Not Available [facility] (Lab) [address] [facility], [place], [address], 02/15/2024 21:42:53 02/14/20 24 02/14/2024 CMP(C OMPRE HENSI VE METAB OLIC PANEL ) glucose 91 mg/dL 70-100 Not Available [facility] (Lab) [address] [facility], [place], [address], 02/15/2024 21:42:53 02/14/20 24 02/14/2024 CMP(C OMPRE HENSI VE METAB OLIC PANEL ) protein, total 6.5 g/dL 6.4-8. 3 Not Available [facility] (Lab) [address] [facility], [place], [address], 02/15/2024 21:42:53 02/14/20 24 02/14/2024 CMP(C OMPRE HENSI VE METAB OLIC PANEL ) albumin 4.0 g/dL 3.5-5. 0 Not Available [facility] (Lab) [address] [facility], [place], [address], 02/15/2024 21:42:53 02/14/20 24 02/14/2024 CMP(C OMPRE HENSI VE METAB OLIC PANEL ) ALT 13 units /L 9-43 Not Available [facility] (Lab) [address] [facility], [place], [address], 02/15/2024 21:42:53 02/14/20 24 02/14/2024 CMP(C OMPRE HENSI VE METAB OLIC PANEL ) alkaline phosphatase 59 units /L 34-104 Not Available [facility] (Lab) [address] [facility], [place], [address], 02/15/2024 21:42:53 02/14/20 24 02/14/2024 CMP(C OMPRE HENSI VE METAB OLIC PANEL ) AST 12 units /L 13-39 low Not Available [facility] (Lab) [address] [facility], [place], [address], 02/15/2024 21:42:53 02/14/20 24 02/14/2024 CMP(C OMPRE HENSI VE METAB OLIC PANEL ) bilirubin, total 0.3 mg/dL 0.2-1. 2 Not Available [facility] (Lab) [address] [facility], [place], [address], 02/15/2024 21:42:53 02/14/20 24 02/14/2024 HEPAT ITIS B SURFA CE ANTIG EN hepatitis B surface antigen Non-re active non-re active This assay was perfo rmed using [employer] Corpo ratio n reage nts and test kits. Value s obtai chilango with other assay metho ds or kits canno t be used inter jordan eably . Not Available [facility] (Lab) [address] [facility], [place], [address], 02/15/2024 21:42:53 02/14/20 24 02/14/2024 HIV 1/2 ANTIG EN/AN TIBOD Y, REFLE X CONFI RMATI ON HIV antigen/anti body Nonrea ctive nonrea ctive HIV-1 antig en and HIV-1 /HIV- 2 antib odies were not detec sae. No labor atory evide nce of HIV infec tion. Not Available [facility] (Lab) [address] [facility], [place], [address], 02/15/2024 21:42:53 02/14/20 24 02/14/2024 HEPAT ITIS C ANTIB ISABELLA SCREE N, REFLE X TO CONFI RMATI ON hepatitis C antibody Non-re active non-re active Antib odies to HCV Not Detec sae, does not exclu de the possi bilit y of expos ure to HCV. Not Available [facility] (Lab) [address] [facility], [place], [address], 02/15/2024 21:42:54 02/14/20 24 02/14/2024 RPR SCREE N, REFLE X TITER /CONF IRMAT ION RPR screen Nonrea ctive nonrea ctive Not Available [facility] (Lab) [address] [facility], [place], [address], 02/15/2024 21:42:54 02/14/20 24 02/14/2024 HEPAT ITIS B CORE, IGM hepatitis B core IgM antibody Non-re active non-re active IgM anti- HBc not detec sae. Does not exclu de the possi bilit y of expos ure to or infec tion with HBV. Not Available [facility] (Lab) [address] [facility], [place], [address], 02/15/2024 21:42:54 02/14/20 24 02/14/2024 IMAGE GUIDE D PAP AND HPV REGAR DLESS image guided Pap, HPV regardless of Pap result SEE RESULT S BELOW CASE REPOR T: Cytol ogy Gynec ologi davey Repor t Case: [id number] Autho husam g Provi ruiz: Natasha Barrios, SAURABH Colle cted: 02/13 1439 Order ing Locat ion: [place] Patho log[facility] Recei saad: 02/14 1253 First Scree n: Yessica Salinas, CT Speci men: Miguel Angel mata Pap - Image d, Cervi x STATE MENT OF ADEQU ACY: Satis facto ry for evalu ation Trans forma tion zone compo nent prese nt ----- ----- ----- ----- ----- ----- ----- ----- ----- ----- ----- ----- ----- ----- ----- ----- ----- ---- FINAL DIAGN OSIS: Negat ramiro for Intra epith elial Wilfrid garcia or An greene ([facility]) . Funga l organ isms morph ologi jumana consi stent with Lorena da spp. Elect chris barney chalo d by Yessica Salinas, CT on 02/22 at 9:33 AM ----- ----- ----- ----- ----- ----- ----- ----- ----- ----- ----- ----- ----- ----- ----- ----- ----- ---- HPV RESUL TS: HPV mRNA E6/E7 : No HPV mRNA Detec sae NOTE: This high risk HPV mRNA assay detec ts fourt een high- risk HPV types (16, 18, 31, 33, 35, 39, 45, 51, 52, 56, 58, 59, 66, 68) witho ut diffe renti ation . COMME NT: This speci men was revie wed by a Cytot echno logis t and/o r Patho logis t (as indic ated in this repor t) after evalu ation using the Thinp rep Imagi ng Syste m. CLINI DAVEY INFOR MATIO N: Menst rual Statu s: LMP (if appli cable ): Clini davey Histo ry/Pr eviou s Pap: Type of Neopl db (if appli cable ): Signi fican t Clini davey Findi ngs: Other Histo ry: Hormo mitra (if appli cable ): PAP EDUCA ESTELA L NOTE: The Pap Test is a scree adolfo test with an inher ent false negat ramiro rate. Liqui d-bas ed sampl ing may decre ase, but will not elimi glenna, false negat ramiro resul ts. A negat ramiro resul t does not precl ude the prese nce and/o r devel opmen t of disea se, since the prese nce of abnor mal cells in the sampl e depen ds on the locat ion of the lesio n and sampl ing techn ique. Janice nued regul ar scree adolfo is the best metho d of cance r preve ntion . If repor sae cytol ogic findi ng do not corre late with physi davey and/o r histo rical findi ngs, furth er inves tigat ion is recom bonnie d, as clini jumana warrtirso nted. Not Available [facility] (Lab) [address] [facility], [place], [address], 02/23/2024 10:38:00 02/14/20 24 02/14/2024 TRICH OMONA S VAGIN SAROJ (RRNA ) trichomonas vaginalis ribosomal RNA (rrna) Negati ve negati ve Not Available [facility] (Lab) [address] [facility], [place], [address], 02/23/2024 10:38:01 02/14/20 24 02/14/2024 CT/GC (DANIEL) , THINP REP VIAL chlamydia trachomatis, PCR Negati ve negati ve Not Available [facility] (Lab) [address] [facility], [place], [address], 02/23/2024 10:38:02 02/14/20 24 02/14/2024 CT/GC (DANIEL) , THINP REP VIAL neisseria gonorrhoeae, PCR Negati ve negati ve Not Available [facility] (Lab) [address] [facility], [place], [address], 02/23/2024 10:38:02 Result Notes None recorded. Problems Name Problem SNOMED Code Status Onset Date Resolution Date Notes Provider Name and Address Organization Details Recorded Time Depressi ve disorder 10000913 Completed 201605/02/2020 Depressi on NOS;Rocky rded Elsewher e: No Locat ion: [facility] S ource: EHR Supervisor Quilting jayne: N Yahairati ce ID: 0001 Valentin lable Time: 03:15:00 PM Briana Corbin [facility] 15:54:[address] Concept Completed 201805/02/2020 Encntr for general adult medical exam w/o abnormal findings ;Recorde d Elsewher e: No Locat ion: [facility] S ource: EHR Supervisor Quilting jayne: N Yahairati ce ID: 0001 Valentin lable Time: 11:00:00 AM Briana Corbin [facility] 15:54:45 Mass of right breast [id number] Completed 201805/02/2020 Lump in the right breast;R ecorded Elsewher e: No Locat ion: [facility] S ource: EHR Supervisor Quilting jayne: N Yahairati ce ID: 0001 Valentin lable Time: 10:30:00 AM Briana moseley [facility] 15:54:31 Pregnanc y test positive [id number] Completed 201205/02/2020 Pregnanc y examinat ion or test, positive result;R ecorded Elsewher e: No Locat ion: [facility] S ource: EHR Supervisor Quilting jayne: N Yahairati ce ID: 0001 Valentin lable Time: 11:30:00 AM Briana moseley [facility] 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 15:54:47 Pregnanc y test negative [id number] Completed 201605/02/2020 Encounte r for pregnanc y test, result negative ;Recorde d Elsewher e: No Locat ion: [facility] S ource: EHR Supervisor Quilting jayne: N Yahairati ce ID: 0001 Valentin lable Time: 11:45:00 AM Briana moseley, [facility] 15:54:37 Routine antenata l care Completed 201205/02/2020 Supervis ion of other normal pregnanc y;Record ed Elsewher e: No Locat ion: [facility] S ource: EHR Supervisor Quilting jayne: N Yahairati ce ID: 0001 Valentin lable Time: 11:00:00 AM Briana moseley, [facility] 15:54:41 Speciali zed medical examinat ion Completed 201305/02/2020 Gynecolo gical Examinat ion;Rocky rded Elsewher e: No Locat ion: [facility] S ource: EHR Supervisor Quilting jayne: N Yahairati ce ID: 0001 Valentin lable Time: 01:45:00 PM Briana moseley, [facility] 15:54:48 Known OR suspecte d abnormal ity affectin g manageme nt of mother Completed 201205/02/2020 Other known or suspecte d abnormal ity, not elsewher e classifi ed, affectin g manageme nt of mother, antepart um conditio n or complica tion;Rec orded Elsewher e: No Locat ion: [facility] S ource: EHR Supervisor Quilting jayne: N Yahairati ce ID: 0001 Valentin lable Time: 04:49:00 PM Briana moseley [facility] 15:54:29 Primigra rayray [id number] Completed 201205/02/2020 Supervis ion of normal first pregnanc y;Record ed Elsewher e: No Locat ion: [facility] S ource: EHR Supervisor Quilting jayne: N Yahairati ce ID: 0001 Valentin lable Time: 11:30:00 AM Briana moseley [facility] 15:54:40 Anxiety state [id number] Completed 201305/02/2020 Anxiety state, unspecif ied;Rocky rded Elsewher e: No Locat ion: [facility] S ource: EHR Supervisor Quilting jayne: N Yahairati ce ID: 0001 Valentin lable Time: 10:30:00 AM [facility]:54:16 Ultrason ography Completed 201205/02/2020 Antenata l screenin g for malforma tion using ultrason ics;Rocky rded Elsewher e: No Locat ion: [facility] S ource: EHR Supervisor Quilting jayne: N Yahairati ce ID: 0001 Valentin lable Time: 11:30:00 AM Briana moseley [facility] 15:54:49 Antenata l screenin g Completed 201205/02/2020 Antenata l screenin g for malforma tion using ultrason ics;Rocky rded Elsewher e: No Locat ion: [facility] S ource: EHR Supervisor Quilting jayne: N Practi ce ID: 0001 Valentin lable Time: 11:30:00 AM Briana moseley [facility] 15:54:15 Congenit al malforma tion [id number] Completed 201205/02/2020 Antenata l screenin g for malforma tion using ultrason ics;Rocky rded Elsewher e: No Locat ion: [facility] S ource: EHR Supervisor Quilting jayne: N Practi ce ID: 0001 Valentin lable Time: 11:30:00 AM Briana moseley, [facility] 15:54:18 Emotiona l state finding Completed 201605/02/2020 Anxiety depressi on;Recor ded Elsewher e: No Locat ion: [facility] S ource: EHR Supervisor Quilting jayne: N Practi ce ID: 0001 Valentin lable Time: 11:00:00 AM Briana moseley, [facility] 15:54:22 Atypical squamous cells of undeterm ined signific ance on cervical Papanico laou smear [id number] Completed 201505/02/2020 Atyp squam cell of undet signfc cyto smr crvx (ASC-US) ;Recorde d Elsewher e: No Locat ion: [facility]: N Practi ce ID: 0001 Valentin lable Time: 10:30:00 AM Briana moseley, [facility] 15:54:17 Screenin g for malignan t neoplasm of cervix Completed 201205/02/2020 Screenin g for malignan t neoplasm s of the cervix;R ecorded Elsewher e: No Locat ion: [facility] S ource: EHR Supervisor Quilting jayne: N Practi ce ID: 0001 Valentin lable Time: 11:30:00 AM Briana moseley, [facility] 15:54:43 Evaluati on finding Completed 201705/02/2020 Hematuri a, unspecif ied;Rocky rded Elsewher e: No Locat ion: [facility] S ource: EHR Supervisor Quilting jayne: N Practi ce ID: 0001 Valentin lable Time: 10:45:00 AM Briana moseley, [facility] 1 15:54:23 Finding by site Completed 201605/02/2020 Dermatit is, unspecif ied;Rocky rded Elsewher e: No Locat ion: [facility] S ource: EHR Supervisor Quilting jayne: N Practi ce ID: 0001 Valentin lable Time: 11:30:00 AM Briana moseley [facility] 1 15:54:25 Adult health examinat ion Completed 201405/02/2020 ROUTINE MEDICAL EXAM;Rec orded Elsewher e: No Locat ion: [facility] S ource: EHR Supervisor Quilting jayne: N Practi ce ID: 0001 Valentin lable Time: 10:00:00 AM Briana moseley [facility] 15:54:12 Amenorrh ea [id number] Completed 201205/02/2020 Absence of menstrua tion;Rec orded Elsewher e: No Locat ion: [facility] S ource: EHR Supervisor Quilting jayne: N Practi ce ID: 0001 Valentin lable Time: 11:30:00 AM Briana moseley [facility] 15:54:13 Finding of pattern of menstrua l cycle [id number] Completed 201505/02/2020 Irregula r interval between menstrua l bleeding ;Recorde d Elsewher e: No Locat ion: [facility] S ource: EHR Supervisor Quilting jayne: N Practi ce ID: 0001 Valentin lable Time: 01:30:00 PM Briana moseley [facility] 15:54:26 Acute vaginiti s [id number] Completed 201705/02/2020 Acute vulvovag initis;R ecorded Elsewher e: No Locat ion: [facility] S ource: EHR Supervisor Quilting jayne: N Practi ce ID: 0001 Valentin lable Time: 10:45:00 AM Briana moseley, [facility] 15:54:11 Poor growth affectin g manageme nt [id number] Completed 201205/02/2020 Poor growth, affectin g manageme nt of mother, antepart um conditio n or complica tion;Rec orded Elsewher e: No [facility] Supervisor Quilting jayne: Sarah Nieto ce ID: 0001 Valentin lable Time: 02:45:00 PM Briana moseley, [facility] 15:54:34 Postpart um care Completed 201205/02/2020 Post Followup ;Recorde d Elsewher e: No Locat ion: [facility] S ource: EHR Supervisor Quilting jayne: Sarah Nieto ce ID: 0001 Valentin lable Time: 02:00:00 PM Briana moseley, [facility] 15:54:36 Oral contrace ptive prescrib ed Completed 201305/02/2020 Counseli ng and prescrip tion for oral contrace ptive;Re corded Elsewher e: No Locat ion: [facility] S ource: EHR Supervisor Quilting jayne: Sarah Nieto ce ID: 0001 Valentin lable Time: 10:30:00 AM Briana moseley, [facility] 15:54:33 Increase d frequenc y of urinatio n [id number] Completed 201505/02/2020 Frequenc y of micturit ion;Rocky rded Elsewher e: No Locat ion: [facility] S ource: EHR Supervisor Quilting jayne: Sarah Nieto ce ID: 0001 Valentin lable Time: 03:30:00 PM Briana moseley, [facility] 15:54:28 Delivery normal [id number] Completed 201205/02/2020 Normal delivery ;Practic e ID: 0001 Briana Corbin [facility] 15:54:19 Single live [id number] Completed 201205/02/2020 Mother with single liveborn ;Practic e ID: 0001 Briana Corbin [facility] 15:54:44 Congenit al heart disease [id number] Completed 202007/28/2021 Jo-Ann Russell [facility] 2 14:26:23 Problem Notes None recorded. Procedures Surgical History Date Name Laterality Status Provider Name and Address Organization Details Recorded Time 02/14/20 24 Date of Last Pap Smear completed [facility] 02/14/2024 12:02:24 11/12/19 19 Date of Last Mammogram completed [facility] 10/09/2020 12:59:12 06/09/19 17 Colposcopy completed Briana [facility] 05/02/2020 17:17:01 03/29/19 09 termination of completed [facility] 02/14/2024 12:03:57 Imaging Results None recorded. Procedure Notes None recorded. Medical Equipment None Reported. Allergies Allergen ID Allergen Name Allergen Category Reaction Reaction Severity Criticality Documentation Date Start Date Code Code System Note Provider Name and Address Organization Details Recorded Time 14412 Substance with sulfonami de structure and antibacte rial mechanism of action (substanc e) medicatio n Not available Not available Not available 05/03/2020 31102 8003 SNOMED Briana Corbin [facility] 12:58:00 Medications Name Sig Start Date Stop Date Status Note LastModified by Organization Details LastModified Time cyclobenz aprine 10 mg tablet TAKE 1/2 TO 1 TABLET BY MOUTH THREE TIMES DAILY NEEDED FOR MUSCLE SPASM 01/19 completed Not Available Not Available Not Available amoxicill in 500 mg capsule take 1 capsule (500MG) by oral route 3 times every day for 10 days 08/24 completed Prescrib ed Elsewher e: No [facility] odify By: cmedical Encount er DateTime : 08/16/19 13 08:49:33 AM Not Available Not Available Not Available buspirone 5 mg tablet TAKE 1 TABLET BY MOUTH TWICE DAILY. START 5 MG 2 TIMES PER DAY AND TAPER DIRECTED TO MAX DOSE 15 MG 2 TIMES PER DAY 02/12 completed Not Available Not Available Not Available Terazol 3 80 mg vaginal supposito ry insert 1 supposit ory by vaginal route every day at bedtime 04/14 completed Prescrib ed Elsewher e: No Locat ion: [facility] odify By: héctor tz Raduou nter DateTime : 04/30/19 17 09:47:10 AM Not Available Not Available Not Available fluconazo le 150 mg tablet TAKE 1 TABLET BY MOUTH EVERY OTHER DAY FOR 3 DOSES 02/12 completed Not Available Not Available Not Available prednison e 20 mg tablet TAKE 1 TABLET BY MOUTH DAILY 01/19 completed Not Available Not Available Not Available metronida zole 500 mg tablet Take 1 tablet every 12 hours by oral route for 7 days. 02/12 completed Not Available Not Available Not Available spironola ctone 25 mg tablet TAKE 1 TABLET BY MOUTH EVERY DAY active Not Available Not Available No t Available amoxicill in 500 mg tablet take 1 tablet by oral route 3 times every day for 10 days 10/15 completed Prescrib ed Elsewher e: No Locat ion: [facility] odify By: marvin Worthy ter DateTime : 10/07/19 16 11:48:31 AM Not Available Not Available Not Available Macrobid 100 mg capsule take 1 capsule (100MG) by oral route every 12 hours with food 06/05 completed Prescrib ed Elsewher e: No Locat ion: [facility] odify By: omedical Encount er DateTime : 05/28/19 13 02:13:47 PM Not Available Not Available Not Available amoxicill in 875 mg tablet TAKE 1 TABLET BY MOUTH EVERY 12 HOURS FOR 10 DAYS 02/12 completed Not Available Not Available Not Available citalopra m 20 mg tablet Take 1 tablet every day by oral route. 01/19 completed Not Available Not Available Not Available Metrogel Vaginal 0.75 % (37.5 mg/5 gram) insert 1 applicat orful by vaginal route every day at bedtime 01/21 completed Prescrib ed Elsewher e: No Locat ion: [facility] odify By: cornelio Baer ncounter DateTime : 10/08/19 16 09:25:26 AM Not Available Not Available Not Available lorazepam 0.5 mg tablet TAKE 1 TABLET BY MOUTH THREE TIMES DAILY NEEDED 07/29 completed Not Available Not Available Not Available Zoloft 50 mg tablet take 1 tablet by oral route every day 04/14 completed Prescrib ed Elsewher e: No Locat ion: Izzy [facility] odify By: héctor Maravilla nter DateTime : 04/27/19 17 03:15:00 PM Not Available Not Available Not Available Cipro 500 mg tablet take 1 tablet by oral route every 12 hours 04/14 completed Prescrib ed Elsewher e: No [facility] By: héctor Maravilla nter DateTime : 11/10/19 17 11:30:00 AM Not Available Not Available Not Available Tylenol 325 mg tablet take 1 tablet by oral route every 4 hours as needed 03/19 completed Prescrib ed Elsewher e: Yes [facility] By: kj Baer ncounter DateTime : 05/03/19 13 11:30:00 AM Not Available Not Available Not Available Vitamin D2 1,250 mcg (50,000 unit) capsule take 1 capsule (46710WL ITS) by oral route every week 05/30 completed Prescrib ed Elsewher e: No Locat ion: [facility] odify By: chaya hills DateTime : 06/11/19 13 02:49:38 PM Not Available Not Available Not Available Zoloft 100 mg tablet take 1 tablet by oral route every day 04/27 completed Prescrib ed Elsewher e: No Locat ion: [facility] odify By: héctor Maravilla nter DateTime : 08/06/19 16 10:30:00 AM Not Available Not Available Not Available norethind jhonathan (contrace ptive) 0.35 mg tablet take 1 tablet by oral route every day active Not Available Not Available No t Available fluticaso ne propionat e 50 mcg/actua tion nasal spray,geetha pension SHAKE LIQUID AND USE 1 SPRAY IN EACH NOSTRIL DAILY 02/13 completed Not Available Not Available Not Available Ortho Tri-Cycle n (28) 0.18 mg(7)/0.2 15mg(7)/0 .25 mg(7)-0.0 35 mg tablet take 1 tablet by oral route every 28 days 08/05 completed Prescrib ed Elsewher e: No [facility] odify By: héctor Maraivlla nter DateTime : 07/29/19 16 08:09:21 AM Not Available Not Available Not Available loratadin e 10 mg tablet TAKE 1 TABLET BY MOUTH DAILY 02/12 completed Not Available Not Available Not Available buspirone 15 mg tablet take 1 tablet by oral route 2 times every day 07/29 completed Prescrib ed Elsewher e: No Locat ion: [facility] odify By: héctor Maravilla nter DateTime : 11/10/19 17 11:30:00 AM Not Available Not Available Not Available NuvaRing 0.12 mg-0.015 mg/24 hr vaginal insert 1 vaginal ring by vaginal route every month leave in place for 3 weeks, remove for 1 week 05/03 completed Prescrib ed Elsewher e: No [facility] By: héctor Maravilla nter DateTime : 10/12/19 19 11:00:00 AM Not Available Not Available Not Available escitalop curtis 20 mg tablet TAKE 1 TABLET BY MOUTH DAILY 01/19 completed Not Available Not Available Not Available Lexapro 10 mg tablet take 1 tablet by oral route every day 10/11 completed Prescrib ed Elsewher e: No Locat ion: [facility] odify By: tahira duarte DateTime : 04/14/19 18 10:45:00 AM Not Available Not Available Not Available Mononessa (28) 0.25 mg-35 mcg tablet take 1 tablet by oral route every day 01/21 completed Prescrib ed Elsewher e: No Locat ion: [facility] odify By: héctor Maravilla ntbeatrice DateTime : 01/22/20 16 01:30:00 PM Not Available Not Available Not Available cyclobenz aprine 5 mg tablet TAKE 1 TABLET BY MOUTH AT BEDTIME NEEDED FOR MUSCLE SPASM 01/19 completed Not Available Not Available Not Available drospiren one 3 mg-ethiny l estradiol 0.02 mg tablet TAKE 1 TABLET BY MOUTH EVERY DAY 02/13 completed Not Available Not Available Not Available 10 mg-400 mcg capsule 05/03 completed Prescrib ed Elsewher e: Yes Loca tion: [facility] odify By: wale duarte DateTime : 05/03/19 13 11:30:00 AM Not Available Not Available Not Available Bibi syo DHA 29 mg-1 mg-400 mg oral pack take 2 by Oral route every day for 30 days 06/01 completed Prescrib ed Elsewher e: No Locat ion: [facility] odify By: wale duarte DateTime : 05/03/19 13 11:30:00 AM Not Available Not Available Not Available Vitals Date Recorded Body height Body mass index (BMI) Body weight Systolic blood pressure Diastolic blood pressure Provider Name and Address Organization Details Last Updated DateTime 10/09/2020 172.72 cm 26.1 kg/m2 77247.45 g 128 mm[Hg] 81 mm[Hg] Jo-Ann Russell [facility] 16:51:51 Date Recorded Body height Body mass index (BMI) Body weight Provider Name and Address Organization Details Last Updated DateTime 07/29/2021 161.29 cm 27.7 kg/m2 75176.75 g Jo-Ann Russell [facility] 07/29/2021 15:38:01 Date Recorded Systolic blood pressure Diastolic blood pressure Provider Name and Address Organization Details Last Updated DateTime 07/29/2021 122 mm[Hg] 74 mm[Hg] Aide Yip, [facility]- [address], [place], [address], [facility] 07/29/2021 15:47:12 Date Recorded Body height Body mass index (BMI) Body weight Systolic blood pressure Diastolic blood pressure Provider Name and Address Organization Details Last Updated DateTime 01/19/2023 161.29 cm 30.3 kg/m2 44321.07 g 123 mm[Hg] 82 mm[Hg] Sarahi Agrawal [facility] 14:42:19 Date Recorded Body height Body mass index (BMI) Body weight Provider Name and Address Organization Details Last Updated DateTime 03/04/2023 161.29 cm 30.7 kg/m2 54997.54 g Radha Winkler [facility] 03/04/2023 12:22:39 Date Recorded Body height Body mass index (BMI) Body weight Systolic blood pressure Diastolic blood pressure Provider Name and Address Organization Details Last Updated DateTime 02/14/2024 161.29 cm 28.1 kg/m2 58417.37 g 126 mm[Hg] 85 mm[Hg] Alondra Winter [facility] 12:01:50 Social History Question Answer Notes LastModified by Organizat ion Details LastModified Time Tobacco Smoking Status Current Some Day Smoker social smoker Sarahitomas Agrawal pradip [facility] 01/19/2023 14:44:27 What Is Your Level Of Alcohol Consumption? None [email or web address] Information not available 05/03/2020 Are You Blind Or Do You Have Difficulty Seeing? No Information not available 10/09/2020 What Is Your Level Of Caffeine Consumption? None [email or web address] Information not available 05/03/2020 Are You Deaf Or Do You Have Serious Difficulty Hearing? No Information not available 10/09/2020 What Type Of Diet Are You Following? REGULAR Information not available 10/09/2020 Do You Use Your Seat Belt Or Car Seat Routinely? Yes Information not available 10/09/2020 Do You Have Smoke And Carbon Monoxide Detectors In Your Home? Yes Information not available 10/09/2020 Do You Feel Stressed (tense, Restless, Nervous, Or Anxious, Or Unable To Sleep At Night)? [id number] Information not available 10/09/2020 Do You Use Any Illicit Or Recreational Drugs? No [email or web address] Information not available 05/03/2020 Do You Use Sunscreen Routinely? Yes Information not available 10/09/2020 Has Tobacco Cessation Counseling Been Provided? No Information not available 05/03/2020 Do You Or Have You Ever Used Any Other Forms Of Tobacco Or Nicotine? No [email or web address] Information not available 05/03/2020 Sex: Unknown Functional Status Question Answer Note LastModified by Organizat ion Details LastModified Time Do you have difficulty walking or climbing stairs? No Information not available 07/29/2021 Are you able to walk? YESWOREST Information not available 10/09/2020 Are you able to care for yourself? Yes Information not available 07/29/2021 Do you have difficulty dressing or bathing? No Information not available 07/29/2021 What is your exercise level? None [email or web address] Information not available 05/03/2020 Mental Status None recorded. Family History Relationship Description Onset Age of this Age Resolved Age Notes LastModified by Organization Details LastModified Time Mother Hypertensive disorder [email or web address] Not available 2020 12:50:44 Medical History Condition Response Allergies (Food, seasonal, environmental ) Y Other N Drug/Latex Allergies/Reactions Y Breast Cancer N Blood Transfusion N Lung Disease N Dermatologic Disorders N Defects or Inherited Disease N Breast Problem N Gestational Diabetes N Hematologic disorders N Anesthesia Complications N History of STI N Deep Vein Thrombosis N Polycystic ovary syndrome N Anxiety Disorder Y Autoimmune disease N Arthritis N Polyps N Infertility N History of abnormal pap N Acid Reflux (GERD) N Cancer N Varicosities N Stroke N Neurologic/Epilepsy N Endometriosis N High Cholesterol N Headaches Y Fibromyalgia N Kidney Disease N Heart Problems N Thyroid Problems N Kidney or Bladder Problems N GI Problems N Eating Disorder N Anemia N Art (IVF or FET) N Psychiatric Illness N Ovarian Cancer N Diabetes N Pulmonary (TB, Asthma) N Hepatitis/Liver Disease N Eczema N Urinary Tract Infection N Abuse/Domestic Violence N Asthma N Trauma/Violence N Depression/ depression Y Heart Disease Y Pre-Eclampsia N Hypertension N Osteoporosis N Thrombophilias N Gynecological History Statement/Question Response Abnormal Pap Y Flow Moderate Date of Last Mammogram 11/11/2018 Date of LMP 02/07/2024 Was last menstrual period normal Y STIs/STDs Y HPV Vaccine Y Colposcopy 06/08/2016 Duration of Flow (days) 5 13 Current Control Method BCPs Are cycles usually normal Y Sexually Active? Y Menses Monthly Y Age of first menstrual cycle 13 Date of Last Pap Smear 02/14/2024 Sexual Problems? N LMP Approximate Obstetrics History GPAL:G 2 P 1 0 1 1 Type Value Full Term 1 Induced 1 Living 1 Total 2 Past Encounters Encounter ID Performer Location Encounter Start Date Encounter Closed Date Diagnosis/Indication Diagnosis SNOMED-CT Code Diagnosis ICD10 Code Diagnosis Note [id number] [facility]ide Yip [facility] [address] [address] 05/03/2020 12:50:51 05/03/2020 17:01:36 Gynecologic examination 24389574 Z01.419 Take Calcium with Vitamin D 1200mg daily if not receiving in daily diet. It is strongly advised to have an annual flu shot and up can obtain at most pharmacies . If you have not had a TDap shot in the last 10 years you should obtain one as well. Discussed with patient & provided with informatio n regarding Gardisil vaccine to prevent the 4 strains for HPV that cause cervical cancer if under age 26. Encourage safe sexual practices, to use condoms and limit partners if not already in a monogamous relationsh ip. Do monthly self breast exams. Have mammogram yearly or every other year depending on family history. BRCA testing is now available for patients with strong genetic history of female cancer. If interested contact the office. Engage in daily exercise of low impact aerobic exercise 45-60 minutes 4-5 times weekly. Avoid tobacco and illicit drugs as well as using moderation with alcohol intake less than 1-2 8 oz beverages daily. This lifestyle behavior pattern will lead to less health conditions and longer life span. If BMI greater than 25 weight watchers or dietary consult advised. Patient received above instructio ns, and questions have been answered. If you have any questions please call or respond to this email. Patient was made aware of the patient portal and may obtain a paper copy of today's plan if desired. Pap sent STD sent Happy on OCP [place] No issues or quesitons. Cystic acne [id number] L70 .0 Will have updated labs from PCP sent so we do not have to repeat CMP. Has been on these meds for >1yr very stable. [id number] Aide Yip [facility] [address] [address] 10/09/2020 16:20:21 10/10/2020 14:15:55 Dyspareunia [id number] N94.10 Exam wnlWill monitorIf occurs again can do updated TVUS but her sx's have resolved & exam is completely normal today. Time spent in visit is a total of 15 mins with at least 50% of visit consisting of counseling and review of plan of care. Additional precaution florence measures were taken to minimize potential exposure to the Covid-19 virus during this patient s visit, including available hand machine compositor upon arrive, temperatur e check and being asked a series of screening questions. All staff wore face coverings during this encounter, as well as provided additional cleaning and sanitizing of all surfaces, including countertop s, pens, chairs, door handles, light switches, etc, prior to and following the patient s visit. Anxiety [id number] F41.9 Lost PCP who is out of her network now.1-RF of lorazepam given with instructio ns to use sparingly; and also needs to est care with a new PCP to take over this medication as it is not something that is routinely prescribed here.Agree able to help with referral [id number] Aide Yip [facility] [address] [address] 07/29/2021 15:19:39 07/29/2021 16:07:09 Gynecologic examination [id number] Z01.419 Take Calcium with Vitamin D 1200mg daily if not receiving in daily diet. It is strongly advised to have an annual flu shot and up can obtain at most pharmacies . If you have not had a TDap shot in the last 10 years you should obtain one as well. Discussed with patient & provided with informatio n regarding Gardisil vaccine to prevent the 4 strains for HPV that cause cervical cancer if under age 26. Encourage safe sexual practices, to use condoms and limit partners if not already in a monogamous relationsh ip. Do monthly self breast exams. Have mammogram yearly or every other year depending on family history. BRCA testing is now available for patients with strong genetic history of female cancer. If interested contact the office. Engage in daily exercise of low impact aerobic exercise 45-60 minutes 4-5 times weekly. Avoid tobacco and illicit drugs as well as using moderation with alcohol intake less than 1-2 8 oz beverages daily. This lifestyle behavior pattern will lead to less health conditions and longer life span. If BMI greater than 25 weight watchers or dietary consult advised. Patient received above instructio ns, and questions have been answered. If you have any questions please call or respond to this email. Patient was made aware of the patient portal and may obtain a paper copy of today's plan if desired. Pap/hpv sent STD Screen sent Genetic Screen discussed Colon Screen na Dexa Screen na Routine Labs na Cystic acne 76102462 L70 .0 Will have updated labs from PCP sent so we do not have to repeat CMP. Has been on these meds for >2yr very stable. [id number] ANTHONY Nicole [place] [address] [address] 01/19/2023 14:32:17 01/19/2023 15:50:08 Gynecologic examination [id number] Z01.419 WWEBC - OCPr/b/a reviewedre fills sent x 12 monthshapp y with this method and would like to continuepa p updatedgc/ ct/trich testing added to papblood STI panel orderedUTD with PCP Take Calcium with Vitamin D daily if not receiving in daily diet.It is strongly advised to have an annual flu shot and up can obtain at most pharmacies . If you have not had a TDap shot in the last 10 years you should obtain one as well.Discu ssed with patient & provided with informatio n regarding Gardisil vaccine to prevent the 4 strains for HPV that cause cervical cancer if under age 26.Encoura ge safe sexual practices, to use condoms and limit partners if not already in a monogamous relationsh ip.Do monthly self breast exams.Have mammogram yearly or every other year depending on family history. BRCA testing is now available for patients with strong genetic history of female cancer. If interested contact the office.Eng age in daily exercise of low impact aerobic exercise 45-60 minutes 4-5 times weekly. Avoid tobacco and illicit drugs as well as using moderation with alcohol intake less than 1-2 8 oz beverages daily. This lifestyle behavior pattern will lead to less health conditions and longer life span. If BMI greater than 25 dietary consult advised.Koko barfield received above instructio ns, and questions have been answered. If you have any questions please call or respond to this email.Gabby chandra was made aware of the patient portal and may obtain a paper copy of today's plan if desired. Venereal d isease screening [id number] Z11.3 Sexually t ransmitted infectious disease 1506312 A64 Cystic acne [id number] L70 .0 Will have updated labs from PCP sent so we do not have to repeat CMP.Has been on these meds for >3yr very stable and wishes to continuesh buffy is aware of the risk/benef its of OCP given her medical hx, she is not interested in progestero ne only methods at this time [id number] ANTHONY Nicole [place] [address],[place] [address] 03/04/2023 11:56:28 03/04/2023 12:43:34 Infection by Trichomonas 10435631 A59.9 gc/ct/tric h testing sentrecomm ended retreatmen t given exposurepa rtner needs testing/tr eatment - informatio n given on health dept STI testing servicesno IC until both have completed treatment and its been 10 days since last dose for bothall questions answered - safe sexual practices discussed and encouraged Time spent in visit is a total of 22 mins with at least 50% of visit consisting of counseling and review of plan of care. Venereal d isease screening [id number] Z11.3 [id number] ANTHONY Nicole [place] [address] [address] 02/14/2024 11:46:43 02/14/2024 12:54:07 Gynecologic examination [id number] Z01.419 Z11.51 Z11.8 Z11.3 WWEpap updatedgc/ ct/trich testing added to papHIV/Hep B&C/Syphil is testing ordered per pt request It is strongly advised to have an annual flu shot and up can obtain at most pharmacies . If you have not had a TDap shot in the last 10 years you should obtain one as well.Discu ssed with patient & provided with informatio n regarding HPV vaccine if applicable . Encourage safe sexual practices, to use condoms and limit partners if not already in a monogamous relationsh ip. Do monthly self breast exams. BRCA testing is now available for patients with strong genetic history of female cancer. If interested contact the office. Engage in regular exercise. Avoid tobacco and illicit drugs This lifestyle behavior pattern will lead to less health conditions and longer life span. If BMI greater than 25 dietary consult advised. Patient received above instructio ns, and questions have been answered. Contracept ion care management [id number] Z30.9 discussed progestero ne only options d/t h/o migraine with aurarx sent for POP, r/b/a reviewed Venereal d isease screening [id number] Z11.3 Acne 90956299 L70.9 Desires to continue spironolac tone for acneyearly CMP orderedref ills sent, r/b/a reviewed Sexually t ransmitted infectious disease 3512260 A64 Cystic acne 69715691 L70 .0 Health Concerns Section Related Observation LastModified by Organization Detai ls LastModified Time None Recorded Concern Status LastModified by Organization Details LastModified Time None Recorded Advance Directives Directive None Recorded Payers Encounter Date Sequence Insurance Name Policy Number Policy Lau Covered Member ID Lau Member ID Guarantor Name 10/09/2020 1 [facility] ON OR AFTER 09/26/20 (MEDICAID REPLACEMENT - HMO) Pooja Khoury [id number] Pooja Khoury 07/29/2021 1 [facility] ON OR AFTER 09/26/20 (MEDICAID REPLACEMENT - HMO) Pooja Khoury [id number] Pooja Khoury 01/19/2023 1 [facility] ON OR AFTER 09/26/20 (MEDICAID REPLACEMENT - HMO) Pooja Khoury [id number] Pooja Khoury 03/04/2023 1 [facility] ON OR AFTER 09/26/20 (MEDICAID REPLACEMENT - HMO) Pooja Khoury [id number] Pooja Khoury 02/14/2024 1 [facility] ON OR AFTER 09/26/20 (MEDICAID REPLACEMENT - HMO) Pooja Khoury [id number] Pooja Khoury Notes Date Note Type Note Provider Name and Address Organization Details Recorded Time 1 text/html DyspareuniaReported bypatient.Location:pelvi s Discharge:no fishy odor; no thick vaginal discharge; no watery vaginal discharge Vulva Pain:no pain; no lesion Pelvic Pain:no pain Abdominal Pain:no pain Pain Score:pain score0/10; Only brief episode during sexual activity; has had sex since this time & no further dyspareuina issues. DysparunianoneNotes:Only brief episode during sexual activity; has had sex since this time & no further dyspareuina issues. Wanted to be sure there were no issues down there. Additionally: Requests Rx for Lorazepam. PCP out of network. Recently found out. Trying to find another who will take over her Rx's. Aide Yip, [facility]- [address], [place], [address], [facility] 10/09/2020 17:46:31 2 text/html Annual GYNReported bypatient.History:no gynecologic complaints Menstrual cycle:Normal menses Urinary symptoms:No hematuria; No incontinence Vulva:No genital lesion Vagina:Normal vaginal discharge Breast:No breast pain; No breast lump; No nipple discharge Current Contraception:Satisfied with current contraception; Monogamous relationship; Oral contraceptives; Requests testing for sexually transmitted infections Sexual complaints:No sexual complaints; No pain during intercourse; Normal libido Menopausal Symptoms:No menopausal symptoms; Normal vaginal lubrication Psychological symptoms:No depression; No anxiety; No PMDD Preventive measures:Encourage self breast examination; Encourage regular exercise; Encourage no tobacco use; Encourage regular mammograms starting age 40; Followed with Q3 year pap smear and high risk HPV typing ANTHONY [facility] [address], [place], [address], [facility] 07/29/2021 16:00:56 3 text/html Annual GYNReported bypatient.Menstrual cycle:Normal menses Urinary symptoms:No hematuria; No incontinence Vulva:No genital lesion Vagina:Normal vaginal discharge Breast:No breast pain; No breast lump; No nipple discharge Current Contraception:Satisfied with current contraception; Oral contraceptives Sexual complaints:No sexual complaints; No pain during intercourse; Normal libido Menopausal Symptoms:No menopausal symptoms; Normal vaginal lubrication Psychological symptoms:No depression; No anxiety; No PMDD Preventive measures:Encourage self breast examination; Encourage regular exercise; Encourage no tobacco use; Encourage regular mammograms starting age 40Notes:hx of asymptomatic mitral valve prolapsePCP/player development manager aware pt is on OCP, however does not require routine cardiology visiton spironolactone and OCP for acne, recently had CMP at PCP office that was normal per pt. Wants to continue with these medications hx of abnormal papslast abnormal 2011, HPV (+)last pap 07/2021, normal denies hx of DVT/PE, HTN, Stroke/AL, cancer, liver disease, or migraine with aurashe is a non-smoker ANTHONY Nicole [address], [place], [address], [facility] 01/19/2023 15:21:56 3 text/html 32yo [id number] for STI testing(+) trichomonas 01/19/2023 - completed treatment. Partner has not been treated, has been SA with condomsno vaginal symptomsneg pelvic painOCP for BC ANTHONY Nicole [address], [place], [address], [facility] 03/04/2023 12:43:21 4 text/html Annual GYNReported bypatient.Menstrual cycle:Normal menses Urinary symptoms:No hematuria; No incontinence Vulva:No genital lesion Vagina:Normal vaginal discharge Breast:No breast pain; No breast lump; No nipple discharge Current Contraception:Satisfied with current contraception; Oral contraceptives Sexual complaints:No sexual complaints; No pain during intercourse; Normal libido Menopausal Symptoms:No menopausal symptoms; Normal vaginal lubrication Psychological symptoms:No depression; No anxiety; No PMDD Preventive measures:Encourage self breast examination; Encourage regular exercise; Encourage no tobacco use; Encourage regular mammograms starting age 40Notes:33yoWWElast pap 01/19/2023 : nilm, HPV (-)BC - OCPon spironolactone for acneh/o migraine with aura Natasha Barrios, [facility] [address], [place], [address], [facility] 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 Status 05/03/19 21 1 CLOSED Fetus Data First Name Last Name Admitted to NICU Weight (g) Sex Living Outcome Pediatric Complications Fetus ID Race Codes Race Delivery Type 2692.97 5704 Full Term 7711 Vaginal Delivery García Calculation Initial García Date Initial Exam Date Initial Exam Provider Initial Ultrasound Date Last Menstrual Period Date Ultra Sound Weeks Gestation 0 Eighteen To Twenty Week García Update Ultra Sound Date Fundal Height At Umbil Quickening Date Ultra Sound Latest Weeks Gestation Final García Confirmed By Final García Confirmed Date Final García Date Ultra Sound Latest Days Gestation 0 0 Menstrual History Last Menstrual Date Menses Monthly On Bcp Conception Prior Menses Frequency Hcg Plus Date Menarche Onset Age Delivery Information Delivery Date Delivery Type Labor Anesthesia Weeks Gestation Incision Type Labor Labor Length Hrs Delivered By Post Complications Tubal Sterilization Discharge Date Comments 3 39 Discharge Information Feeding Method Contraceptive Method Maternal HG B and HCT Levels Ob Episode Information Episode Created Date Number of Fetuses Patient Bloodtype Patient rh Status Prepregnancy Weight lbs Domestic Partner Domestic Partner Phone Father Name Bridge Worker Apprentice Status 10/10/19 21 1 CLOSED Fetus Data First Name Last Name Admitted to NICU Weight (g) Sex Living Outcome Pediatric Complications Fetus ID Race Codes Race Delivery Type , Induced [id number] García Calculation Initial García Date Initial Exam Date Initial Exam Provider Initial Ultrasound Date Last Menstrual Period Date Ultra Sound Weeks Gestation 0 Eighteen To Twenty Week García Update Ultra Sound Date Fundal Height At Umbil Quickening Date Ultra Sound Latest Weeks Gestation Final García Confirmed By Final Gacría Confirmed Date Final García Date Ultra Sound Latest Days Gestation 0 0 Menstrual History Last Menstrual Date Menses Monthly On Bcp Conception Prior Menses Frequency Hcg Plus Date Menarche Onset Age Delivery Information Delivery Date Delivery Type Labor Anesthesia Weeks Gestation Incision Type Labor Labor Length Hrs Delivered By Post Complications Tubal Sterilization Discharge Date Comments 9 Discharge Information Feeding Method Contraceptive Method Maternal HG B and HCT Levels
--- NOTE | 2024-07-14 16:17 | ED_ITS ---
HPI - Extremity Injury (Upper) General Chief Complaint: Extremity Injury, Upper Stated Complaint: left middle finger injury Time Seen by Provider: 07/14/24 16:24 Source: patient Mode of arrival: ambulatory Limitations: no limitations History of Present Illness HPI narrative: This is a 34-year-old female who presents to the ED for chief complaint of left middle finger injury today. States she was trying to keep her dog from attacking at the chicken in the backyard. States that the dog pulled with her finger in between the collar and she felt a pop. Denies any further injury. Related Data Home Medications ?Medication ?Instructions ?Recorded ?Confirmed ?Last Taken ?Type spironolactone 25 mg tablet 25 mg PO DAILY 05/19/21 07/04/24 Unknown History norethindrone (contraceptive) 0.35 0.35 mg PO DAILY 05/03/24 07/04/24 Unknown History mg tablet (Julianna) Allergies Allergy/AdvReac Type Severity Reaction Status Date / Time Sulfa (Sulfonamide AdvReac Nausea Verified 07/14/24 14:35 Antibiotics) Review of Systems Review of Systems: All systems as dictated in HPI [facility] Past Medical History Medical History (Updated 07/14/24 @ 16:19 by Alexy Guzmán PA-C) Speech abnormality Congenital tongue-tie Tongue tied Localized swelling, mass and lump, unspecified Hand paresthesia Insomnia Abdominal bloating BMI 29.0-29.9,adult Otitis media Strain of neck muscle BMI 28.0-28.9,adult Cystic acne Elevated fasting glucose Acne BMI 26.0-26.9,adult Depression Acephalgic migraine Encounter to establish care BMI 27.0-27.9,adult Ophthalmic migraine Right shoulder pain Right foot pain Anxiety Mitral valve prolapse Surgical History Surgical History No pertinent past surgical history Family History Family History Mother Hypertension Depression Father Non Hodgkin's lymphoma Sibling Depression Grandparent Breast cancer Bladder cancer Esophageal cancer Grandparent Cancer Social History Social History Smoking status: Never smoker Alcohol intake: current Substance use: current Substance use type: marijuana Other substance usage details: thc edibles Lack of Transportation: No Lack of Food: Never True Current Housing: I Have Housing Concerned About Future Housing: No Difficulty Paying Gas/Electric Bills: No Difficulty Paying for Meds: No Currently Unemployed: No Education: Associate Degree Difficulty w/ Childcare or Family Care: No Exam Narrative: GENERAL: Well-appearing, well-nourished, and in no acute distress. MSK: Bruising, swelling and tenderness to the proximal left middle finger. SKIN: Warm, dry, no rash. NEURO: Alert and oriented x4. No focal deficits. PSYCH: Normal mood and affect. Course Vital Signs Vital signs: Vital Signs Temperature 97.8 F 07/14/24 14:34 Pulse Rate 92 07/14/24 14:34 Respiratory Rate 18 07/14/24 14:34 Blood Pressure 128/71 07/14/24 14:34 Pulse Oximetry 99 07/14/24 14:34 Oxygen Delivery Room Air 07/14/24 14:34 Temperature 97.8 F 07/14/24 14:34 Pulse Rate 92 07/14/24 14:34 Respiratory Rate 18 07/14/24 14:34 Blood Pressure 128/71 07/14/24 14:34 Pulse Oximetry 99 07/14/24 14:34 Oxygen Delivery Room Air 07/14/24 14:34 MDM - Extremity Injury (Upper) MDM Narrative Medical decision making narrative: This is a 34-year-old female who presents to the ED for chief complaint of left middle finger injury today. Vitals are normal. Exam remarkable for the above. X-ray showed nondisplaced oblique proximal phalanx fracture of the left finger. Patient will be given finger splint. Rx for Acworth for breakthrough pain. Patient will be discharged in stable condition. Supportive measures discussed and return precautions given. Patient is understanding and agreeable with plan for discharge with Hand follow-up. Discharge Plan Discharge Clinical Impression: Fracture of proximal phalanx of digit of left hand Patient Disposition: Home Condition: Stable Instructions: Antibiotic Form Additional Instructions: Exam today shows proximal phalanx fracture of the left hand. ibuprofen 600 mg and Tylenol 500 mg every 6 hours as needed for pain and swelling. Continue with mobilization until otherwise directed. If you have any new or worsening symptoms please return to the ER for further evaluation. Patient Language: Bahamian Prescriptions: New hydrocodone-acetaminophen 5-325 mg tablet 1 tablet PO Q8H PRN (Reason: pain) Qty: 14 0RF No Action spironolactone 25 mg tablet 25 mg PO DAILY norethindrone (contraceptive) [Julianna] 0.35 mg tablet 0.35 mg PO DAILY tretinoin 0.025 % cream 1 applic topical QHS Qty: 45 3RF fluoxetine 20 mg capsule 20 mg PO DAILY Qty: 30 5RF quetiapine 50 mg tablet 50 mg PO QHS Qty: 30 5RF fluoxetine 10 mg capsule 10 mg PO DAILY Qty: 30 5RF Rx Instructions: take with fluoxetine 20mg cap to equal 30mg daily Follow-up/Referrals: Jaiden Walton MD [Physician] - Alla Salinas NP [Primary Care Provider] - Time of Disposition: 16:21
--- OUTSIDE RECORDS SUMMARY | 2024-07-14 16:30 | XMS_ITS | Clinical Summary ---
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
--- OUTSIDE RECORDS SUMMARY | 2024-07-14 16:30 | XMS_ITS | Clinical Summary ---
Author Organization [facility] Address [address] [place] [address] Care Team Providers Care Sales Development Manager Name Role Phone Patricia Martinez HODAN Primary Care Provider [phone] Allergies Active Allergy Reactions Criticality Noted Date [...] 60 g 0 Active VITAMIN D2, ERGOCALCIFEROL, 31745 UNITS capsuleIndicati ons:Vitamin D deficiency TAKE 1 [...] patient's age to complete this topic Insurance [employer] Care Teams Sales Development Manager Relationship Specialty Start Date End Date Patricia Martinez FNP [address] [place] [address] PCP - General NURSE PRACTITIONER 03/29/17
--- OUTSIDE RECORDS SUMMARY | 2024-07-14 16:30 | XMS_ITS | Clinical Summary ---
Author Organization [facility] Address [address] [facility] [address] [facility] [address] [place] [address] Care Team Providers Care Dolly Operator Name Role Phone Patricia Martinez APRN-SPINNING MACHINE OPERATOR Primary Care Provider [phone] Source Comments [facility],non-owned Affiliates and Associated Physician Practices is amultiple site organization consisting of ambulatory clinics and hospital sitesin [place], [place], [place] and [place]. This disclosure is being madepursuant to the Care Everywhere program and may not contain all information available regarding this patient. 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 Gender Identity Not on file Sexual Orientation Not on file Last Filed Vital Signs Vital Sign Reading Time Taken Comments Blood Pressure 115/64 02/15/2019 1:56 PM ARBORER Pulse 88 02/15/2019 1:56 PM ARBORER Temperature 37.3 C (99.1 F) 02/15/2019 1:56 PM ARBORER Respiratory Rate 20 02/15/2019 1:56 PM ARBORER Oxygen Saturation 99% 02/15/2019 1:56 PM ARBORER Inhaled Oxygen Concentration - - Weight 59.9 kg (132 lb) 02/15/2019 1:56 PM ARBORER Height 160 cm (5' 3 ) 02/15/2019 1:56 PM ARBORER Body Mass Index 23.38 02/15/2019 1:56 PM ARBORER Plan of Treatment Health Maintenance Due Date [...] patient's age to complete this topic Insurance [facility] MEDICAID - [place] Care Teams Dolly Operator Relationship Specialty Start Date End Date Patricia Martinez APRN-DARWIN [address] [place] [id number] PCP - General 12/28/18
[2024-07-14] MEDS: IBUPROFEN 400 MG TABLET 800 MG PO (16:33)
== END 2024-07-14 16:37 | disposition home or self-care (01) ==
LOC: ANHED 16:28
PROVIDERS: Emergency Provider Physician Assistant; PCP Nurse Practitioner Family
DX: S62.613A Displaced fracture of proximal phalanx of left middle finger, initial encounter for closed fracture (principal); I34.1 Nonrheumatic mitral (valve) prolapse; F41.9 Anxiety disorder, unspecified; F32.A Depression, unspecified; Z79.3 Long term (current) use of hormonal contraceptives; Z79.899 Other long term (current) drug therapy; X50.9XXA Other and unspecified overexertion or strenuous movements or postures, initial encounter
CPT/HCPCS: 29130; 73130; 99284; A9270

== ENCOUNTER 2024-07-20 09:56 | Day surgery (SDC) | payer OTHER, SELFPAY ==
[2024-07-19 11:49] VITALS: BMI 28.5
--- NOTE | ~2024-07-20 | XR_ITS ---
EXAMINATION: XR surgery orthopedic DATE: 07/20/2024 11:56 INDICATION: Postreduction pinning of the left third proximal phalanx TECHNIQUE: 3 fluoroscopic images of the left third digit were obtained during procedure performed by Dr. Walton. Radiologist was not present for the imaging or procedure. The amount of fluoroscopy t maia used during this procedure was 0.2 minutes. Total DAP was 0.708 cGycm^2. COMPARISON: 07/14/2024 FINDINGS: Percutaneous pinning of oblique extra-articular fracture at the proximal metadiaphyseal reg ion of the left third proximal phalanx. Fracture is fixed with a pair of proximal to distal directed wires and is in essentially anatomic alignment. No other fractures identified. Joint spaces are manuel l. IMPRESSION: 1. Essentially anatomic alignment post pinning of an extra articular fracture of the left third proxi mal phalanx. See procedure note for further detail. Reviewed, dictated and finalized at location A. IMPRESSION: 1. Essentially anatomic alignment post pinning of an extra articular fracture o f the left third proximal phalanx. See procedure note for further detail.
--- NOTE | 2024-07-20 06:57 | P.PNAN_ITS ---
Anes - Initial Pre Proc Eval Procedure: Operation Date: 07/20/24 12:00 Proposed Procedures p Closed Reduction, Percutaneous Pinning Left Middle Finger - Jaiden Walton MD Date/Time: 07/20/24 06:57 Surgeon: Jaiden Walton MD Pre Op Diagnosis: Fracture Proximal Phalanx Left Middle Finger Patient Data Age: 34 Gender: F Height: 1.6 m Weight: 73 kg Allergies Allergy/AdvReac Type Severity Reaction Status Date / Time Sulfa (Sulfonamide AdvReac Nausea Verified 07/20/24 10:48 Antibiotics) Home Medications ?Medication ?Instructions ?Recorded ?Confirmed ?Type spironolactone 25 mg tablet 25 mg PO DAILY 05/19/21 07/20/24 History fluoxetine 20 mg capsule 20 mg PO DAILY #30 caps 05/03/24 07/20/24 Rx norethindrone (contraceptive) 0.35 0.35 mg PO DAILY 05/03/24 07/20/24 History mg tablet (Julianna) tretinoin 0.025 % topical cream 1 applic topical QHS #45 grams 05/03/24 07/20/24 Rx fluoxetine 10 mg capsule 10 mg PO DAILY #30 caps 07/04/24 07/20/24 Rx quetiapine 50 mg tablet 50 mg PO QHS #30 tabs 07/04/24 07/20/24 Rx cephalexin 500 mg capsule 500 mg PO Q8H #21 caps 07/20/24 Rx hydrocodone 5 mg-acetaminophen 325 1 tablet PO Q6H PRN pain #12 tabs 07/20/24 Rx mg tablet Patient hx anesthesia problems: none Family hx anesthesia problems: none Results Review: All pre-operative results and documents have been reviewed as part of the pre-operative evaluation. [facility] Past Medical History Medical History (Updated 07/17/24 @ 13:25 by Jaiden Walton MD) Speech abnormality Congenital tongue-tie Tongue tied Localized swelling, mass and lump, unspecified Hand paresthesia Insomnia Abdominal bloating BMI 29.0-29.9,adult Otitis media Strain of neck muscle BMI 28.0-28.9,adult Cystic acne Elevated fasting glucose Acne BMI 26.0-26.9,adult Depression Acephalgic migraine Encounter to establish care BMI 27.0-27.9,adult Ophthalmic migraine Right shoulder pain Right foot pain Anxiety Mitral valve prolapse Surgical History Surgical History No pertinent past surgical history Family History Family History Mother Hypertension Depression Father Non Hodgkin's lymphoma Sibling Depression Grandparent Breast cancer Bladder cancer Esophageal cancer Grandparent Cancer Social History Social History Smoking status: Former smoker Tobacco type: cigarettes Second hand tobacco smoke exposure: Yes Additional smoking assessment comments: patient reports social smoking Alcohol intake: current Drinks per week: 6 Substance use: former Substance use type: marijuana and other Other substance usage details: cocaine Lack of Transportation: No Lack of Food: Never True Current Housing: I Have Housing Concerned About Future Housing: No Difficulty Paying Gas/Electric Bills: No Difficulty Paying for Meds: No Currently Unemployed: No Education: Associate Degree Difficulty w/ Childcare or Family Care: No Living arrangements: with family Spiritual care concerns: No Anes - Eval Final PreProcedure Day of Procedure 07/20/24 06:57 Patient weight: overweight Heart: regular rate and rhythm Lungs: clear to auscultation Airway: Mallampati scale class II Neurological: alert and oriented Last oral intake: >/= 8 hours ASA classification: II Emergent: no Anesthetic plan: proceed Anesthesia type and monitoring: general GIVS and standard monitoring Results Review: All pre-operative results and documents have been reviewed as part of the pre- operative evaluation. Informed Consent: The patient's anesthetic plan and its attendant risks and benefits were discussed with the patient/family/POA. Questions were solicited and answers provided to the satisfaction of the patient/family/POA.
--- NOTE | 2024-07-20 06:57 | WPDHPUPDATE1 ---
History and Physical Update Update Date/Time: 07/20/24 06:57 Patient seen and examined in pre-operative holding area. No interval change in medical history or symptoms. Patient recalls previous discussion of benefits and alternatives to procedure. Continues to desire to proceed with left middle finger proximal phalanx closed possible open reduction and pin fixation. Reviewed procedure, post-op expectations and risks including but not limited to bleeding, infection, injury to tendon/nerve/vessel, decreased hand function, stiffness, RSD, no change or worsening of symptoms, malunion, nonunion. I discussed the possible use of assistants and their participation in the case. Patient stated understanding and signed the consent form wishing to proceed.
--- NOTE | 2024-07-20 06:58 | W.PM.PROC2 ---
Procedure Note - Detailed Date of Procedure 07/20/24 Pre-op Diagnosis Fracture Proximal Phalanx Left Middle Finger Post-op Diagnosis Same Procedure Performed crpp left middle finger p1 fx Surgeon Jaiden Walton MD Building [employer] shantelle weinberg pa-c Anesthesia MAC Description of Procedure INFORMED CONSENT: The patient was seen and examined and marked in the pre-op area.? The patient signed the consent form. PROCEDURE IN DETAIL:The patient taken back to OR on the stretcher in supine position. Time out performed with anesthesia, surgeon and staff agreeing on patient's name site and surgery to be performed SCDs were placed on the lower extremities and inflated. A tourniquet was placed on {left} upper extremity and antibiotics given IV After anesthesia administered sedation I injected {5}cc 1%lido and 0.5% marcaine plain for digital block in the palm The?{left upper extremity}?was prepped and draped in sterile fashion the??{left upper extremity} was? exsanguinated with Esmarch bandage and tourniquet inflated to 250mmHg The mini C-arm was draped and brought into the field for fracture evaluation. I was able to achieve reduction of the fracture though noting it was unstable. I proceeded with placing two 0.045 K-wires in a anterograde direction in a crossing fashion to secure the fracture on the proximal phalanx. Multiple views of fluoroscopy verified pin placement and maintenance of reduction. The pins were trimmed appropriately. A dressing of betadine soaked alcohol swabs were placed around the pin sites followed by 4x4, joey, and a volar splint after the tourniquet was let down noting the hand was warm and well perfused. The patient was then awaken from anesthesia and transferred to the recovery room in stable condition.? Complications - none EBL- 0cc Disposition - home in stable conditions shantelle weinberg pa-c was essential for positioning, retraction, fluoro and dressing placement [facility] Billing Surgery - Charge Forward: Surgery Billing ([id number] for shantelle)
[2024-07-20 10:50] VITALS: BP 121/66; PULSE 70; RESP 15; TEMP 37.1; O2SAT 99
[2024-07-20] MEDS: LACTATED RINGERS 1,000 ML 30 ML IV CONT (10:57)
[2024-07-20] MEDS: ceFAZolin SODIUM 2 GM/20 ML SW SYRINGE IV PUSH (11:38)
[2024-07-20] MEDS: BUPivacaine HCL 0.5% PF 30 ML VIAL 5 ML INFILTRATE (11:41)
[2024-07-20] MEDS: LIDOCAINE 1% LOCAL INJ 20 ML VIAL 5 ML INFILTRATE (11:41)
--- OUTSIDE RECORDS SUMMARY | 2024-07-20 11:51 | XMS_ITS | Data Portability ---
Author Organization [facility] Address [address] [place] [address] Assessment Encounter Date Assessment Date Assessment LastModified [...] a year unless there are new symptoms. [email or web address] Not available 02/14/2024 12:01:29 Plan of Treatment Reminders Order Date Submit Date Provider Last Modified By Organization Details Last Modified Time Details Appointments None recorded. Lab hbcab (hepatitis B core Ab) igm, serum 2023 [facility] (Lab), [address], [place], [address], 21:42:54 HBsAg (hepatitis B surface Ag), serum 2023 [facility] (Lab), [address], [place], [address], 4 21:42:53 hepatitis C virus Ab, serum 2023 [facility] (Lab), [address], [place], [address], 4 21:42:54 HIV 1+2 AB + HIV 1 p24 Ag, qualitative immunoassay , serum 2023 024 [facility] (Lab), [address], [place], [address], 4 21:42:54 RPR (rapid plasma reagin), serum 2023 024 [facility] (Lab), [address], [place], [address], 4 21:42:54 CMP, serum or plasma 2023 024 [facility] (Lab), [address], [place], [address], 4 21:42:53 hbcab (hepatitis B core Ab) igm, serum 2022 023 [facility] (Lab), [address], [place], [address], 3 22:14:58 HBsAg (hepatitis B surface Ag), serum 2022 023 [facility] (Lab), [address], [place], [address], 3 22:14:57 hepatitis C virus Ab, serum 2022 023 [facility] (Lab), [address], [place], [address], 3 22:14:57 unlisted lab - HIV 1/2 antigen/ant ibody, reflex confirmatio n 2022 023 [facility] (Lab), [address], [place], [address], 3 22:14:57 RPR (rapid plasma reagin), serum 2022 023 [facility] (Lab), [address], [place], [address], 3 22:14:58 Referral primary care provider referral 2020 021 ROMI Not available 2 05:01:10 Procedures None recorded. Surgeries None recorded. Imaging None recorded. Medication Orders spironolact one 25 mg tablet 2023 024 [facility] #[id number], [address], [place], [id number], 4 12:53:15 norethindro ne (contracept ramiro) 0.35 mg tablet 2023 024 [facility] #[id number], [address], [place], [id number], 4 12:52:07 metronidazo le 500 mg tablet 2022 023 [facility] #85625, [address], [place], [id number], 3 12:43:07 spironolact one 25 mg tablet 2022 023 [facility] #28821, [address], [place], [id number], 3 15:20:52 drospirenon e 3 mg-ethinyl estradiol 0.02 mg tablet 2022 023 [facility] #85275, [address], [place], [id number], 4 12:52:12 drospirenon e 3 mg-ethinyl estradiol 0.02 mg tablet 2021 022 funmilayo [facility] #41421, [address], [place], [id number], 4 12:52:12 spironolact one 25 mg tablet 2021 022 ROMI [facility] #38875, [address], [place], [id number], 2 15:54:01 Patient TargetsNo targets recorded. Patient InstructionsNo instructions recorded. Reason for Referral Primary Care Provider Referr al for Anxiety Referring Physician: Aide Yip, CIRCULATING PROCESS INSPECTOR, Encounter Date: 10/09/2020 Results Created Date Observation [...] ruiz: Carlton Brandt Colle cted: 07/29 1624 DIRECTOR HOUSEKEEPING Order ing Locat ion: [place] [facility] [...] as clini jumana ch nted. Not Available [facility] (Lab) [address], [place], [address], 08/06/2021 11:01:15 07/30/19 22 07/29/2021 TRICH OMONA S VAGIN SAROJ (RRNA ) trichomonas vaginalis ribosomal RNA (rrna) Negati ve negati ve Not Available [facility] (Lab) [address], [place], [address], 08/06/2021 11:01:16 07/30/19 22 07/29/2021 CT/GC (DANIEL) , THINP REP VIAL chlamydia trachomatis, PCR Negati ve negati ve Not Available [facility] (Lab) [address], [place], [address], 08/06/2021 11:01:16 07/30/19 22 07/29/2021 CT/GC (DANIEL) , THINP REP VIAL neisseria gonorrhoeae, PCR Negati ve negati ve Not Available [facility] (Lab) [address], [place], [address], 08/06/2021 11:01:16 01/20/20 23 01/19/2023 HEPAT ITIS B SURFA CE ANTIG EN hepatitis B surface antigen Non-re active non-re active This assay was perfo rmed using [employer] ratio n reage nts and test kits. Value s obtai chilango with other assay metho ds or kits canno t be used inter jordan eably . Not Available [facility] (Lab) [address], [place], [address], 01/20/2023 22:14:57 01/20/20 23 01/19/2023 HIV 1/2 ANTIG EN/AN TIBOD Y, REFLE X CONFI RMATI ON HIV antigen/anti body Nonrea ctive nonrea ctive HIV-1 antig en and HIV-1 /HIV- 2 antib odies were not detec sae. No labor atory evide nce of HIV infec tion. Not Available [facility] (Lab) [address], [place], [address], 01/20/2023 22:14:57 01/20/20 23 01/19/2023 HEPAT ITIS C ANTIB ISABELLA SCREE N, REFLE X TO CONFI RMATI ON hepatitis C antibody Non-re active non-re active Antib odies to HCV Not Detec sae, does not exclu de the possi bilit y of expos ure to HCV. Not Available [facility] (Lab) [address], [place], [address], 01/20/2023 22:14:57 01/20/20 23 01/19/2023 RPR SCREE N/REF RONY TITER /FTA RPR screen Nonrea ctive nonrea ctive Not Available [facility] (Lab) [address] [place], [address], 01/20/2023 22:14:58 01/20/20 23 01/19/2023 HEPAT ITIS B CORE, IGM hepatitis B core IgM antibody Negati ve negati ve Not Available [facility] (Lab) [address] [place], [address], 01/20/2023 22:14:58 01/20/20 23 01/19/2023 IMAGE GUIDE D PAP AND HPV REGAR DLESS image guided Pap, HPV regardless of Pap result SEE RESULT S BELOW CASE REPOR T: Cytol ogy Gynec ologi davey Repor t Case: [id number] Autho husam frankel Provi ruiz: Natasha Barrios, DIRECTOR HOUSEKEEPING Colle cted: 01/19 1632 Order ing Locat [...] bonnie d, as mendoza densoned. Not Available [facility] (Lab) [address], [place], [address], 01/25/2023 13:22:49 01/20/20 23 01/19/2023 TRICH OMONA S VAGIN SAROJ (RRNA ) trichomonas vaginalis ribosomal RNA (rrna) Positi ve negati ve abnormal Not Available [facility] (Lab) [address], [place], [address], 01/25/2023 13:22:50 01/20/20 23 01/19/2023 CT/GC (DANIEL) , THINP REP VIAL chlamydia trachomatis, PCR Negati ve negati ve Not Available [facility] (Lab) [address], [place], [address], 01/25/2023 13:22:50 01/20/20 23 01/19/2023 CT/GC (DANIEL) , THINP REP VIAL neisseria gonorrhoeae, PCR Negati ve negati ve Not Available [facility] (Lab) [address], [place], [address], 01/25/2023 13:22:50 03/04/20 23 03/04/2023 CT/GC AND TRICH OMONA S VAGIN SAROJ (RRNA ), URINE chlamydia trachomatis, PCR Negati ve negati ve Not Available [facility] (Lab) [address], [place], [address], 03/05/2023 14:21:27 03/04/20 23 03/04/2023 CT/GC AND TRICH OMONA S VAGIN SAROJ (RRNA ), URINE neisseria gonorrhoeae, PCR Negati ve negati ve Not Available [facility] (Lab) [address], [place], [address], 03/05/2023 14:21:27 03/04/20 23 03/04/2023 CT/GC AND TRICH OMONA S VAGIN SAROJ (RRNA ), URINE trichomonas vaginalis ribosomal RNA (rrna) Negati ve negati ve Not Available [facility] (Lab) [address], [place], [address], 03/05/2023 14:21:27 02/14/20 24 02/14/2024 CMP(C OMPRE HENSI VE METAB OLIC PANEL ) sodium 138 mmol/ L 133-14 6 Not Available [facility] (Lab) [address], [place], [address], 02/15/2024 21:42:53 02/14/20 24 02/14/2024 CMP(C OMPRE HENSI VE METAB OLIC PANEL ) potassium 4.0 mmol/ L 3.5-5. 1 Not Available [facility] (Lab) [address], [place], [address], 02/15/2024 21:42:53 02/14/20 24 02/14/2024 CMP(C OMPRE HENSI VE METAB OLIC PANEL ) chloride 106 mmol/ L 98-107 Not Available [facility] (Lab) [address], [place], [address], 02/15/2024 21:42:53 02/14/20 24 02/14/2024 CMP(C OMPRE HENSI VE METAB OLIC PANEL ) carbon dioxide 26 mmol/ L 21-31 Not Available [facility] (Lab) [address], [place], [address], 02/15/2024 21:42:53 02/14/20 24 02/14/2024 CMP(C OMPRE HENSI VE METAB OLIC PANEL ) anion gap 6 mmol/ L 4-13 Not Available [facility] (Lab) [address], [place], [address], 02/15/2024 21:42:53 02/14/20 24 02/14/2024 CMP(C OMPRE HENSI VE METAB OLIC PANEL ) blood urea nitrogen 11 mg/dL 7-25 Not Available [facility] (Lab) [address], [place], [address], 02/15/2024 21:42:53 02/14/20 24 02/14/2024 CMP(C OMPRE HENSI VE METAB OLIC PANEL ) creatinine 0.83 mg/dL 0.60-1 .30 Not Available [facility] (Lab) [address], [place], [address], 02/15/2024 21:42:53 02/14/20 24 02/14/2024 CMP(C OMPRE HENSI VE METAB OLIC PANEL ) egfrcr (CKD-epi 2020) >90 mL/mi n/1.7 3_m2 >=60 Not Available [facility] (Lab) [address], [place], [address], 02/15/2024 21:42:53 02/14/20 24 02/14/2024 CMP(C OMPRE HENSI VE METAB OLIC PANEL ) calcium 8.6 mg/dL 8.3-10 .5 Not Available [facility] (Lab) [address], [place], [address], 02/15/2024 21:42:53 02/14/20 24 02/14/2024 CMP(C OMPRE HENSI VE METAB OLIC PANEL ) glucose 91 mg/dL 70-100 Not Available [facility] (Lab) [address], [place], [address], 02/15/2024 21:42:53 02/14/20 24 02/14/2024 CMP(C OMPRE HENSI VE METAB OLIC PANEL ) protein, total 6.5 g/dL 6.4-8. 3 Not Available [facility] (Lab) [address], [place], [address], 02/15/2024 21:42:53 02/14/20 24 02/14/2024 CMP(C OMPRE HENSI VE METAB OLIC PANEL ) albumin 4.0 g/dL 3.5-5. 0 Not Available [facility] (Lab) [address], [place], [address], 02/15/2024 21:42:53 02/14/20 24 02/14/2024 CMP(C OMPRE HENSI VE METAB OLIC PANEL ) ALT 13 units /L 9-43 Not Available [facility] (Lab) [address], [place], [address], 02/15/2024 21:42:53 02/14/20 24 02/14/2024 CMP(C OMPRE HENSI VE METAB OLIC PANEL ) alkaline phosphatase 59 units /L 34-104 Not Available [facility] (Lab) [address], [place], [address], 02/15/2024 21:42:53 02/14/20 24 02/14/2024 CMP(C OMPRE HENSI VE METAB OLIC PANEL ) AST 12 units /L 13-39 low Not Available [facility] (Lab) [address], [place], [address], 02/15/2024 21:42:53 02/14/20 24 02/14/2024 CMP(C OMPRE HENSI VE METAB OLIC PANEL ) bilirubin, total 0.3 mg/dL 0.2-1. 2 Not Available [facility] (Lab) [address], [place], [address], 02/15/2024 21:42:53 02/14/20 24 02/14/2024 HEPAT ITIS B SURFA CE ANTIG EN hepatitis B surface antigen Non-re active non-re active This assay was perfo rmed using [employer] ratio n reage nts and test kits. Value s obtai chilango with other assay metho ds or kits canno t be used inter jordan eably . Not Available [facility] (Lab) [address], [place], [address], 02/15/2024 21:42:53 02/14/20 24 02/14/2024 HIV 1/2 ANTIG EN/AN TIBOD Y, REFLE X CONFI RMATI ON HIV antigen/anti body Nonrea ctive nonrea ctive HIV-1 antig en and HIV-1 /HIV- 2 antib odies were not detec sae. No labor atory evide nce of HIV infec tion. Not Available [facility] (Lab) [address], [place], [address], 02/15/2024 21:42:53 02/14/20 24 02/14/2024 HEPAT ITIS C ANTIB ISABELLA SCREE N, REFLE X TO CONFI RMATI ON hepatitis C antibody Non-re active non-re active Antib odies to HCV Not Detec sae, does not exclu de the possi bilit y of expos ure to HCV. Not Available [facility] (Lab) [address], [place], [address], 02/15/2024 21:42:54 02/14/20 24 02/14/2024 RPR SCREE N, REFLE X TITER /CONF IRMAT ION RPR screen Nonrea ctive nonrea ctive Not Available [facility] (Lab) [address], [place], [address], 02/15/2024 21:42:54 02/14/20 24 02/14/2024 HEPAT ITIS B CORE, IGM hepatitis B core IgM antibody Non-re active non-re active IgM anti- HBc not detec sae. Does not exclu de the possi bilit y of expos ure to or infec tion with HBV. Not Available [facility] (Lab) [address], [place], [address], 02/15/2024 21:42:54 02/14/20 24 02/14/2024 IMAGE GUIDE [...] epith elial Wilfrid garcia or An greene ([facility]) . Funga l organ isms morph ologi [...] as clini jumana warrtirso nted. Not Available [facility] (Lab) [address], [place], [address], 02/23/2024 10:38:00 02/14/20 24 02/14/2024 TRICH OMONA S VAGIN SAROJ (RRNA ) trichomonas vaginalis ribosomal RNA (rrna) Negati ve negati ve Not Available [facility] (Lab) [address], [place], [address], 02/23/2024 10:38:01 02/14/20 24 02/14/2024 CT/GC (DANIEL) , THINP REP VIAL chlamydia trachomatis, PCR Negati ve negati ve Not Available [facility] (Lab) [address], [place], [address], 02/23/2024 10:38:02 02/14/20 24 02/14/2024 CT/GC (DANIEL) , THINP REP VIAL neisseria gonorrhoeae, PCR Negati ve negati ve Not Available [facility] (Lab) [address], [place], [address], 02/23/2024 10:38:02 Result Notes None recorded. Problems Name Problem SNOMED Code Status Onset Date Resolution Date Notes Provider Name and Address Organization Details Recorded Time Depressi ve disorder 74367071 Completed 201605/02/2020 Depressi on NOS;Rocky rded Elsewher e: No Locat ion: [facility] S ource: EHR Consultant [employer]. Vice President [employer] (Ex ) jayne: N Yahairati ce ID: 0001 Valentin lable Time: 03:15:00 PM Briana Corbin [facility] 15:54:[address] Concept Completed 201805/02/2020 Encntr for general adult medical exam w/o abnormal findings ;Recorde d Elsewher e: No Locat ion: [facility] S ource: EHR Consultant [employer]. Vice President [employer] (Ex ) jayne: N Yahairati ce ID: 0001 Valentin lable Time: 11:00:00 AM Briana Corbin [facility] 15:54:45 Mass of right breast [id number] Completed 201805/02/2020 Lump in the right breast;R ecorded Elsewher e: No Locat ion: [facility] S ource: E[employer] Consultant [employer]. Vice President [employer] (Ex ) jayne: N Yahairati ce ID: 0001 Valentin lable Time: 10:30:00 AM Briana moseley [facility] 15:54:31 Pregnanc y test positive [id number] Completed 201205/02/2020 Pregnanc y examinat ion or test, positive result;R ecorded Elsewher e: No Locat ion: [facility] S ource: E[employer] Consultant [employer]. Vice President [employer] (Ex ) jayne: N Yahairati ce ID: 0001 Valentin lable Time: 11:30:00 AM Briana moseley [facility] 15:54:[address] Concept Completed 201605/02/2020 Encntr for marketing lead exam (general ) (routine ) w/o abn findings ;Recorde d Elsewher e: No Locat ion: [facility] S ource: EHR Consultant [employer]. Vice President [employer] (Ex ) jayne: N Yahairati ce ID: 0001 Valentin lable Time: 11:00:00 AM Briana moseley, [facility] 15:54:47 Pregnanc y test negative [id number] Completed 201605/02/2020 Encounte r for pregnanc y test, result negative ;Recorde d Elsewher e: No Locat ion: [facility] S ource: EHR Consultant [employer]. Vice President [employer] (Ex ) jayne: N Yahairati ce ID: 0001 Valentin lable Time: 11:45:00 AM Briana moseley, [facility] 15:54:37 Routine antenata l care Completed 201205/02/2020 Supervis ion of other normal pregnanc y;Record ed Elsewher e: No Locat ion: [facility] S ource: E[employer] Consultant [employer]. Vice President [employer] (Ex ) jayne: N Yahairati ce ID: 0001 Valentin lable Time: 11:00:00 AM Briana moseley, [facility] 15:54:41 Speciali zed medical examinat ion Completed 201305/02/2020 Gynecolo gical Examinat ion;Rocky rded Elsewher e: No Locat ion: [facility] S ource: E[employer] Consultant [employer]. Vice President [employer] (Ex ) jayne: N Yahairati ce ID: 0001 Valentin lable Time: 01:45:00 PM Birana moseley, [facility] 15:54:48 Known OR suspecte d abnormal ity affectin g manageme nt of mother Completed 201205/02/2020 Other known or suspecte d abnormal ity, not elsewher e classifi ed, affectin g manageme nt of mother, antepart um conditio n or complica tion;Rec orded Elsewher e: No Locat ion: [facility] S ource: EHR Consultant [employer]. Vice President [employer] (Ex ) jayne: N Yahairati ce ID: 0001 Valentin lable Time: 04:49:00 PM Briana moseley [facility] 15:54:29 Primigra rayray [id number] Completed 201205/02/2020 Supervis ion of normal first pregnanc y;Record ed Elsewher e: No Locat ion: [facility] S ource: EHR Consultant [employer]. Vice President [employer] (Ex ) jayne: N Yahairati ce ID: 0001 Valentin lable Time: 11:30:00 AM Briana moseley [facility] 15:54:40 Anxiety state [id number] Completed 201305/02/2020 Anxiety state, unspecif ied;Rocky rded Elsewher e: No Locat ion: [facility] S ource: EHR Consultant [employer]. Vice President [employer] (Ex ) jayne: N Yahairati ce ID: 0001 Valentin lable Time: 10:30:00 [facility] 15:54:16 Ultrason ography Completed 201205/02/2020 Antenata l screenin g for malforma tion using ultrason ics;Rocky rded Elsewher e: No Locat ion: [facility] S ource: EHR Consultant [employer]. Vice President [employer] (Ex ) jayne: N Yahairati ce ID: 0001 Valentin lable Time: 11:30:00 AM Briana moseley [facility] 15:54:49 Antenata l screenin g Completed 201205/02/2020 Antenata l screenin g for malforma tion using ultrason ics;Rocky rded Elsewher e: No Locat ion: [facility] S ource: EHR Consultant [employer]. Vice President [employer] (Ex ) jayne: N Practi ce ID: 0001 Valentin lable Time: 11:30:00 AM Briana moseley [facility] 15:54:15 Congenit al malforma tion [id number] Completed 201205/02/2020 Antenata l screenin g for malforma tion using ultrason ics;Rocky rded Elsewher e: No Locat ion: [facility] S ource: EHR Consultant [employer]. Vice President [employer] (Ex ) jayne: N Practi ce ID: 0001 Valentin lable Time: 11:30:00 AM Briana moseley, [facility] 15:54:18 Emotiona l state finding Completed 201605/02/2020 Anxiety depressi on;Recor ded Elsewher e: No Locat ion: [facility] S ource: E[employer] Consultant [employer]. Vice President [employer] (Ex ) jayne: N Practi ce ID: 0001 Valentin lable Time: 11:00:00 AM Briana moseley, [facility] 15:54:22 Atypical squamous cells of undeterm ined signific ance on cervical Papanico laou smear [id number] Completed 201505/02/2020 Atyp squam cell of undet signfc cyto smr crvx (ASC-US) ;Recorde d Elsewher e: No Locat ion: [facility]: N Practi ce ID: 0001 Valentin lable Time: 10:30:00 AM Briana moseley, [facility] 15:54:17 Screenin g for malignan t neoplasm of cervix Completed 201205/02/2020 Screenin g for malignan t neoplasm s of the cervix;R ecorded Elsewher e: No Locat ion: [facility] S ource: E[employer] Consultant [employer]. Vice President [employer] (Ex ) jayne: N Practi ce ID: 0001 Valentin lable Time: 11:30:00 AM Briana moseley, [facility] 15:54:43 Evaluati on finding Completed 201705/02/2020 Hematuri a, unspecif ied;Rocky rded Elsewher e: No Locat ion: [facility] S ource: E[employer] Consultant [employer]. Vice President [employer] (Ex ) jayne: N Practi ce ID: 0001 Valentin lable Time: 10:45:00 AM Briana moseley, [facility] 1 15:54:23 Finding by site Completed 201605/02/2020 Dermatit is, unspecif ied;Rocky rded Elsewher e: No Locat ion: [facility] S ource: EHR Consultant [employer]. Vice President [employer] (Ex ) jayne: N Practi ce ID: 0001 Valentin lable Time: 11:30:00 AM Briana moseley [facility] 1 15:54:25 Adult health examinat ion Completed 201405/02/2020 ROUTINE MEDICAL EXAM;Rec orded Elsewher e: No Locat ion: [facility] S ource: EHR Consultant [employer]. Vice President [employer] (Ex ) jayne: N Practi ce ID: 0001 Valentin lable Time: 10:00:00 AM Briana moseley [facility] 15:54:12 Amenorrh ea [id number] Completed 201205/02/2020 Absence of menstrua tion;Rec orded Elsewher e: No Locat ion: [facility] S ource: E[employer] Consultant [employer]. Vice President [employer] (Ex ) jayne: N Practi ce ID: 0001 Valentin lable Time: 11:30:00 AM Briana moseley [facility] 15:54:13 Finding of pattern of menstrua l cycle [id number] Completed 201505/02/2020 Irregula r interval between menstrua l bleeding ;Recorde d Elsewher e: No Locat ion: [facility] S ource: E[employer] Consultant [employer]. Vice President [employer] ([employer] ) jayne: N Practi ce ID: 0001 Valentin lable Time: 01:30:00 PM Briana moseley [facility] 15:54:26 Acute vaginiti s [id number] Completed 201705/02/2020 Acute vulvovag initis;R ecorded Elsewher e: No Locat ion: [facility] S ource: E[employer]ant [employer]. Vice President [employer] ([employer] ) jayne: N Practi ce ID: 0001 Valentin lable Time: 10:45:00 AM Briana moseley, [facility] 15:54:11 Poor growth affectin g manageme nt [id number] Completed 201205/02/2020 Poor growth, affectin g manageme nt of mother, antepart um conditio n or complica tion;Rec orded Elsewher e: No [facility]at [facility] S ource: EHR Consultant [employer]. Vice President [employer] (Ex ) jayne: Sarah Nieto ce ID: 0001 Valentin lable Time: 02:45:00 PM Briana moseley, [facility] 15:54:34 Postpart um care Completed 201205/02/2020 Post Followup ;Recorde d Elsewher e: No Locat ion: [facility] S ource: E[employer] Consultant [employer]. Vice President [employer] (Ex ) jayne: Sarah Nieto ce ID: 0001 Valentin lable Time: 02:00:00 PM Briana moseley, [facility] 15:54:36 Oral contrace ptive prescrib ed Completed 201305/02/2020 Counseli ng and prescrip tion for oral contrace ptive;Re corded Elsewher e: No Locat ion: [facility] S ource: E[employer] Consultant [employer]. Vice President [employer] (Ex ) jayne: Sarah Nieto ce ID: 0001 Valentin lable Time: 10:30:00 AM Briana moseley, [facility] 15:54:33 Increase d frequenc y of urinatio n [id number] Completed 201505/02/2020 Frequenc y of micturit ion;Rocky rded Elsewher e: No Locat ion: [facility] S ource: [employer]. Vice President [employer] ) jayne: Sarah Nieto ce ID: [id number] Valentin lable Time: 03:30:00 PM Briana moseley, [facility] 15:54:28 Delivery normal [id number] Completed 201205/02/2020 Normal delivery ;Practic e ID: 0001 Briana Corbin [facility] 15:54:19 Single live [id number] Completed 201205/02/2020 Mother with single liveborn ;Practic e ID: 0001 Briana Corbin [facility] 15:54:44 Congenit al heart disease [id number] Completed 202007/28/2021 Jo-Ann Russell [facility] 2 14:26:23 Problem Notes None recorded. Procedures Surgical History Date Name Laterality Status Provider Name and Address Organization Details Recorded Time 02/14/20 24 Date of Last Pap Smear completed [facility] 02/14/2024 12:02:24 11/12/19 19 Date of Last Mammogram completed [facility] 10/09/2020 12:59:12 06/09/19 17 Colposcopy completed Briana [facility] 05/02/2020 17:17:01 03/29/19 09 termination of completed [facility] 02/14/2024 12:03:57 Imaging Results None recorded. Procedure Notes None recorded. Medical Equipment None Reported. Allergies Allergen ID Allergen Name Allergen Category Reaction Reaction Severity Criticality Documentation Date Start Date Code Code System Note Provider Name and Address Organization Details Recorded Time 08645 Substance with sulfonami de structure and antibacte rial mechanism of action (substanc e) medicatio n Not available Not available Not available 05/03/2020 34339 8003 SNOMED Briana Corbin [facility] 12:58:00 Medications Name Sig Start Date [...] Prescrib ed Elsewher e: No Locat [facility] odify By: cmedical Encount er DateTime : [...] Prescrib ed Elsewher e: No Locat ion: [facility] odify By: héctor tz Raduou nter DateTime [...] Prescrib ed Elsewher e: No Locat ion: [facility] odify By: marvin Worthy ter DateTime : 10/07/19 16 11:48:31 AM Not Available Not Available Not Available Macrobid 100 mg capsule take 1 capsule (100MG) by oral route every 12 hours with food 06/05 completed Prescrib ed Elsewher e: No Locat ion: [facility] odify By: omedical Encount er DateTime : [...] Prescrib ed Elsewher e: No Locat ion: [facility] odify By: cornelio Baer ncounter DateTime : 10/08/19 16 09:25:26 AM Not Available Not Available Not Available lorazepam 0.5 mg tablet TAKE 1 TABLET BY MOUTH THREE TIMES DAILY NEEDED 07/29 completed Not Available Not Available Not Available Zoloft 50 mg tablet take 1 tablet by oral route every day 04/14 completed Prescrib ed Elsewher e: No Locat ion: Izzy buffy [facility] odify By: héctor Maravilla nter DateTime : 04/27/19 17 03:15:00 PM Not Available Not Available Not Available Cipro 500 mg tablet take 1 tablet by oral route every 12 hours 04/14 completed Prescrib ed Elsewher e: No [facility] By: héctor Maravilla nter DateTime : 11/10/19 17 11:30:00 AM Not Available Not Available Not Available Tylenol 325 mg tablet take 1 tablet by oral route every 4 hours as needed 03/19 completed Prescrib ed Elsewher e: Yes [facility] od[facility] By: kj Baer ncounter DateTime : 05/03/19 13 11:30:00 AM Not Available Not Available Not Available Vitamin D2 1,250 mcg (50,000 unit) capsule take 1 capsule (86806BK ITS) by oral route every week 05/30 completed Prescrib ed Elsewher e: No Locat ion: [facility] odify By: chaya hills DateTime : 06/11/19 13 02:49:38 PM Not Available Not Available Not Available Zoloft 100 mg tablet take 1 tablet by oral route every day 04/27 completed Prescrib ed Elsewher e: No Locat ion: [facility] odify By: héctor Maravilla nter DateTime : [...] Prescrib ed Elsewher e: No [facility]at [facility] odify By: héctor Maravilla nter DateTime : 07/29/19 16 08:09:21 AM Not Available Not Available Not Available loratadin e 10 mg tablet TAKE 1 TABLET BY MOUTH DAILY 02/12 completed Not Available Not Available Not Available buspirone 15 mg tablet take 1 tablet by oral route 2 times every day 07/29 completed Prescrib ed Elsewher e: No Locat ion: [facility] odify By: héctor Maravilla nter DateTime : 11/10/19 17 11:30:00 AM Not Available Not Available Not Available NuvaRing 0.12 mg-0.015 mg/24 hr vaginal insert 1 vaginal ring by vaginal route every month leave in place for 3 weeks, remove for 1 week 05/03 completed Prescrib ed Elsewher e: No [facility] od[facility] By: héctor Maravilla nter DateTime : 10/12/19 19 11:00:00 AM Not Available Not Available Not Available escitalop curtis 20 mg tablet TAKE 1 TABLET BY MOUTH DAILY 01/19 completed Not Available Not Available Not Available Lexapro 10 mg tablet take 1 tablet by oral route every day 10/11 completed Prescrib ed Elsewher e: No Locat ion: [facility] odify By: tahira duarte DateTime : 04/14/19 18 10:45:00 AM Not Available Not Available Not Available Mononessa (28) 0.25 mg-35 mcg tablet take 1 tablet by oral route every day 01/21 completed Prescrib ed Elsewher e: No Locat ion: [facility] odify By: héctor Maravilla ntbeatrice DateTime : [...] Prescrib ed Elsewher e: Yes Loca tion: [facility] odify By: wale duarte DateTime : 05/03/19 13 11:30:00 AM Not Available Not Available Not Available Bibi syo DHA 29 mg-1 mg-400 mg oral pack take 2 by Oral route every day for 30 days 06/01 completed Prescrib ed Elsewher e: No Locat ion: [facility] odify By: wale duarte DateTime : 05/03/19 13 11:30:00 AM Not Available Not Available Not Available Vitals Date Recorded Body height Body mass index (BMI) Body weight Systolic blood pressure Diastolic blood pressure Provider Name and Address Organization Details Last Updated DateTime 10/09/2020 172.72 cm 26.1 kg/m2 03052.45 g 128 mm[Hg] 81 mm[Hg] Jo-Ann Russell [facility] 16:51:51 Date Recorded Body height Body mass index (BMI) Body weight Provider Name and Address Organization Details Last Updated DateTime 07/29/2021 161.29 cm 27.7 kg/m2 52999.75 g Jo-Ann Russell [facility] 07/29/2021 15:38:01 Date Recorded Systolic blood pressure Diastolic blood pressure Provider Name and Address Organization Details Last Updated DateTime 07/29/2021 122 mm[Hg] 74 mm[Hg] Aide Yip, [facility] [address], [place], [address], [facility] 07/29/2021 15:47:12 Date Recorded Body height Body mass index (BMI) Body weight Systolic blood pressure Diastolic blood pressure Provider Name and Address Organization Details Last Updated DateTime 01/19/2023 161.29 cm 30.3 kg/m2 83032.07 g 123 mm[Hg] 82 mm[Hg] Sarahi Agrawal [facility] 14:42:19 Date Recorded Body height Body mass index (BMI) Body weight Provider Name and Address Organization Details Last Updated DateTime 03/04/2023 161.29 cm 30.7 kg/m2 72224.54 g Radha Winkler [facility] 03/04/2023 12:22:39 Date Recorded Body height Body mass index (BMI) Body weight Systolic blood pressure Diastolic blood pressure Provider Name and Address Organization Details Last Updated DateTime 02/14/2024 161.29 cm 28.1 kg/m2 66742.37 g 126 mm[Hg] 85 mm[Hg] Alondra Winter [facility] 12:01:50 Social History Question Answer Notes LastModified by Organizat ion Details LastModified Time Tobacco Smoking Status Current Some Day Smoker social smoker Sarahitomas Agrawal pradip [facility] 01/19/2023 14:44:27 What Is Your Level Of Alcohol Consumption? None Information not available 05/03/2020 Are You Blind Or Do You Have Difficulty Seeing? No Information not available 10/09/2020 What Is Your Level Of Caffeine Consumption? None [email or web address] Information not available 05/03/2020 Are You Deaf [...] Anxious, Or Unable To Sleep At Night)? [id number] Information not available 10/09/2020 Do You Use Any Illicit Or Recreational Drugs? No [email or web address] Information not available 05/03/2020 Do You Use Sunscreen Routinely? Yes Information not available 10/09/2020 Has Tobacco Cessation Counseling Been Provided? No Information not available 05/03/2020 Do You Or Have You Ever Used Any Other Forms Of Tobacco Or Nicotine? No Information not available 05/03/2020 Sex: Unknown Functional [...] 07/29/2021 What is your exercise level? None [email or web address] Information not available 05/03/2020 Mental Status None recorded. Family History Relationship Description Onset Age of this Age Resolved Age Notes LastModified by Organization Details LastModified Time Mother Hypertensive disorder [email or web address] Not available 2020 12:50:44 Medical History Condition Response Allergies (Food, seasonal, environmental ) Y Other N Breast Cancer N Drug/Latex Allergies/Reactions Y Blood Transfusion N Dermatologic Disorders N Lung Disease N Defects or Inherited Disease N Breast Problem N Gestational Diabetes N Hematologic disorders N Anesthesia Complications N History of STI N Deep Vein Thrombosis N Polycystic ovary syndrome N Anxiety Disorder Y Autoimmune disease N Arthritis N Infertility N Polyps N Acid Reflux (GERD) N History of abnormal pap N Cancer N Stroke N Varicosities N Neurologic/Epilepsy N Endometriosis N High Cholesterol N Headaches Y Fibromyalgia N Kidney Disease N Heart Problems N Kidney or Bladder Problems N Thyroid Problems N GI Problems N Eating Disorder [...] SNOMED-CT Code Diagnosis ICD10 Code Diagnosis Note [id number] Aide Yip [facility] [address] [address] 05/03/2020 12:50:51 05/03/2020 17:01:36 Gynecologic examination 70117875 Z01.419 Take Calcium with Vitamin D 1200mg [...] Ely No issues or quesitons. Cystic acne 40120109 L70 .0 Will have updated labs from PCP sent so we do not have to repeat CMP. Has been on these meds for >1yr very stable. [id number] Aide Yip [facility] [address] [address] 10/09/2020 16:20:21 10/10/2020 14:15:55 Dyspareunia 16006874 N94.10 Exam wnlWill monitorIf occurs again can [...] this patient s visit, including available hand box printing machine operator upon arrive, temperatur e check and being asked a series of screening questions. All staff wore face coverings during this encounter, as well as provided additional cleaning and sanitizing of all surfaces, including countertop s, pens, chairs, door handles, light switches, etc, prior to and following the patient s visit. Anxiety 25192221 F41.9 Lost PCP who is out of her network now.1-RF of lorazepam given with instructio ns to use sparingly; and also needs to est care with a new PCP to take over this medication as it is not something that is routinely prescribed here.Agree able to help with referral [id number] Aide Yip [facility] [address] [address] 07/29/2021 15:19:39 07/29/2021 16:07:09 Gynecologic examination 67490816 Z01.419 Take Calcium with Vitamin D 1200mg [...] Screen na Routine Labs na Cystic acne 45803439 L70 .0 Will have updated labs from PCP sent so we do not have to repeat CMP. Has been on these meds for >2yr very stable. [id number] ANTHONY Nicole Cashton [address] [address] 01/19/2023 14:32:17 01/19/2023 15:50:08 Gynecologic examination 87375052 Z01.419 WWEBC - OCPr/b/a reviewedre fills sent [...] plan if desired. Venereal d isease screening 017602533 Z11.3 Sexually t ransmitted infectious disease 6564086 A64 Cystic acne 60381762 L70 .0 Will have updated labs from PCP sent so we do not have to repeat CMP.Has been on these meds for >3yr very stable and wishes to continuesh buffy is aware of the risk/benef its of OCP given her medical hx, she is not interested in progestero ne only methods at this time [id number] ANTHONY Nicole Cashton [address] [address] 03/04/2023 11:56:28 03/04/2023 12:43:34 Infection by Trichomonas 07890343 A59.9 gc/ct/tric h testing sentrecomm ended retreatmen [...] plan of care. Venereal d isease screening 569506838 Z11.3 [id number] ANTHONY Nicole Cashton [address] [address] 02/14/2024 11:46:43 02/14/2024 12:54:07 Gynecologic examination 14568056 Z01.419 Z11.51 Z11.8 Z11.3 WWEpap updatedgc/ ct/trich [...] have been answered. Contracept ion care management 353013766 Z30.9 discussed progestero ne only options d/t h/o migraine with aurarx sent for POP, r/b/a reviewed Venereal d isease screening 126285389 Z11.3 Acne 37603662 L70.9 Desires to continue spironolac tone for acneyearly CMP orderedref ills sent, r/b/a reviewed Sexually t ransmitted infectious disease 6510199 A64 Cystic acne 53978069 L70 .0 Health Concerns Section Related Observation LastModified by Organization Detai ls LastModified Time None Recorded Concern Status LastModified by Organization Details LastModified Time None Recorded Advance Directives Directive None Recorded Payers Encounter Date Sequence Insurance Name Policy Number Policy Lau Covered Member ID Lau Member ID Guarantor Name 10/09/2020 1 [facility] ON OR AFTER 09/26/20 (MEDICAID REPLACEMENT - HMO) Pooja Khoury [id number] Pooja Khoury 07/29/2021 1 [facility] ON OR AFTER 09/26/20 (MEDICAID REPLACEMENT - HMO) Pooja Khoury [id number] Pooja Khoury 01/19/2023 1 [facility] ON OR AFTER 09/26/20 (MEDICAID REPLACEMENT - HMO) Pooja Khoury [id number] Pooja Khoury 03/04/2023 1 [facility] ON OR AFTER 09/26/20 (MEDICAID REPLACEMENT - HMO) Pooja Khoury [id number] Pooja Khoury 02/14/2024 1 [facility] ON OR AFTER 09/26/20 (MEDICAID REPLACEMENT - HMO) Pooja Khoury [id number] Pooja Khoury Notes Date Note Type Note [...] will take over her Rx's. Aide Yip, [facility]- [address], [place], [address], [facility] 10/09/2020 17:46:31 2 text/html Annual GYNReported [...] HPV typing ANTHONY Mills[facility] [address], [place], [address], [facility] 07/29/2021 16:00:56 3 text/html Annual GYNReported [...] starting age 39Notes:hx of asymptomatic mitral valve prolapsePCP/college dean aware pt is on OCP, however does not require routine cardiology visiton spironolactone and OCP for acne, recently had CMP at PCP office that was normal per pt. Wants to continue with these medications hx of abnormal papslast abnormal 2011, HPV (+)last pap 07/2021, normal denies hx of DVT/PE, HTN, Stroke/TX, cancer, liver disease, or migraine with aurashe is a non-smoker ANTHONY Nicole [address], [place], [address], [facility] 01/19/2023 15:21:56 3 text/html 32yo [id number] for STI testing(+) trichomonas 01/19/2023 - completed treatment. Partner has not been treated, has been SA with condomsno vaginal symptomsneg pelvic painOCP for BC ANTHONY Nicole [address], [place], [address], [facility] 03/04/2023 12:43:21 4 text/html Annual GYNReported [...] aura Natasha Barrios, [facility] [address], [place], [address], [facility] 02/14/2024 12:53:35 OBGyn Episode Ob Episode Information Episode Created Date Number of Fetuses Patient Bloodtype Patient rh Status Prepregnancy Weight lbs Domestic Partner Domestic Partner Phone Father Name Solder Cream Maker Status 05/03/19 21 1 CLOSED Fetus Data [...] Domestic Partner Domestic Partner Phone Father Name Solder Cream Maker Status 10/10/19 21 1 CLOSED Fetus Data First Name Last Name Admitted to NICU Weight (g) Sex Living Outcome Pediatric Complications Fetus ID Race Codes Race Delivery Type , Induced [id number] García Calculation Initial García Date Initial Exam [...]
--- OUTSIDE RECORDS SUMMARY | 2024-07-20 11:51 | XMS_ITS | Clinical Summary ---
Author Organization [facility] [employer] Address [address] [place] [address] Care Team Providers Care Spanish Tutor Name Role Phone Patricia Martinez APRN-NURSE LICENSED PRACTICAL Primary Care Provider [phone] Source Comments [facility] [employer],non-owned Affiliates and Associated Physician Practices is amultiple site organization consisting of ambulatory clinics and hospital sitesin [place], [place], [place] and [place]. This disclosure is being madepursuant to the Care Everywhere program and may not contain all information available regarding this patient. Last updated 17.[employer] Allergies Active Allergy Reactions Criticality Noted Date [...] on file Legal Sex Female 5:45 AM SUPPLY CHAIN DEVELOPMENT MANAGER Gender Identity Not on file Sexual Orientation Not on file Last Filed Vital Signs Vital Sign Reading Time Taken Comments Blood Pressure 115/64 02/15/2019 1:56 PM SUPPLY CHAIN DEVELOPMENT MANAGER Pulse 88 02/15/2019 1:56 PM SUPPLY CHAIN DEVELOPMENT MANAGER Temperature 37.3 C (99.1 F) 02/15/2019 1:56 PM SUPPLY CHAIN DEVELOPMENT MANAGER Respiratory Rate 20 02/15/2019 1:56 PM SUPPLY CHAIN DEVELOPMENT MANAGER Oxygen Saturation 99% 02/15/2019 1:56 PM SUPPLY CHAIN DEVELOPMENT MANAGER Inhaled Oxygen Concentration - - Weight 59.9 kg (132 lb) 02/15/2019 1:56 PM SUPPLY CHAIN DEVELOPMENT MANAGER Height 160 cm (5' 3 ) 02/15/2019 1:56 PM SUPPLY CHAIN DEVELOPMENT MANAGER Body Mass Index 23.38 02/15/2019 1:56 PM SUPPLY CHAIN DEVELOPMENT MANAGER Plan of Treatment Health Maintenance Due Date [...] patient's age to complete this topic Insurance [facility] MEDICA[facility] - [place] Care Teams Spanish Tutor Relationship Specialty Start Date End Date Patricia Martinez APRN-DARWIN [address] [place] [id number] PCP - General 12/28/18
--- OUTSIDE RECORDS SUMMARY | 2024-07-20 11:51 | XMS_ITS | Clinical Summary ---
Author Organization [facility] Address [address] [place] [address] Care Team Providers Care Drawer In Dobby Loom Name Role Phone Patricia Martinez HODAN Primary Care Provider [phone] Allergies Active Allergy Reactions Criticality Noted Date [...] 60 g 0 Active VITAMIN D2, ERGOCALCIFEROL, 24488 UNITS capsuleIndicati ons:Vitamin D deficiency TAKE 1 [...] patient's age to complete this topic Insurance [employer] Care Teams Drawer In Dobby Loom Relationship Specialty Start Date End Date Patricia Martinez FNP [address] [place] [address] PCP - General NURSE PRACTITIONER 03/29/17
[2024-07-20 12:04] VITALS: BP 102/49; PULSE 61; RESP 16; O2SAT 100
--- NOTE | 2024-07-20 12:10 | WPDANESPN ---
Anes - Prog Note Post-Op Date/Time: 07/20/24 12:10 Cardiovascular status: normal Respiratory status: normal Airway patency: baseline Mental status: baseline Post-Op hydration status: normal Vital Signs: Last Vital Signs Temp 37.1 C 07/20/24 10:50 Pulse 70 07/20/24 10:50 Resp 15 07/20/24 10:50 BP 121/66 07/20/24 10:50 Pulse Ox 99 07/20/24 10:50 O2 Del Method Room Air 07/20/24 10:50 Pain Score (VAS): 0 Post-procedural complaints: none Patient Feedback: Patient satisfied with anesthetic care. Other Findings: Patient vital signs back to baseline. Patient denies nausea and vomiting. Patient's pain under control. Patient OK for discharge.
[2024-07-20 12:14] VITALS: BP 100/44; PULSE 56; RESP 15; O2SAT 100
[2024-07-20 12:24] VITALS: BP 105/58; PULSE 50; RESP 15; O2SAT 100
[2024-07-20 12:34] VITALS: BP 109/63; PULSE 50; RESP 14; O2SAT 100
[2024-07-20 12:44] VITALS: BP 110/64; PULSE 51; RESP 15; O2SAT 100
== END 2024-07-20 12:52 | disposition home or self-care (01) ==
LOC: ASC 10:31
PROVIDERS: PCP Nurse Practitioner Family; Visit Provider Plastic Surgery
PROC: (CPT 26727; principal; 2024-07-20 12:00)
DX: S62.613A Displaced fracture of proximal phalanx of left middle finger, initial encounter for closed fracture (principal); X50.0XXA Overexertion from strenuous movement or load, initial encounter
CPT/HCPCS: 26727; 99199

== ENCOUNTER 2024-08-01 12:34 | Outpatient (CLI) | payer OTHER, SELFPAY ==
--- NOTE | ~2024-08-01 | XR_ITS ---
XR hand LT min 3V Ordering provider: Kiana Pelletier PA-C History: . S62.613A - Displaced fracture of proximal phalanx of left... . Comparison: July 14, 2024 FINDINGS: BONES: Postoperative changes in the proximal phalanx of the middle finger. JOINT SPACES: Well maintained. SOFT TISSUES: Unremarkable. IMPRESSION: Postoperative changes in the proximal phalanx of the left middle finger. Reviewed, dictated and finalized at location A.
--- OUTSIDE RECORDS SUMMARY | 2024-08-01 12:41 | XMS_ITS | Data Portability ---
Author Organization [facility] Address [address] [place] [address] Assessment Encounter Date Assessment Date Assessment LastModified [...] a year unless there are new symptoms. [email or web address] Not available 02/14/2024 12:01:29 Plan of Treatment Reminders Order Date Submit Date Provider Last Modified By Organization Details Last Modified Time Details Appointments None recorded. Lab hbcab (hepatitis B core Ab) igm, serum 2023 [facility] (Lab), [address], [place], [address], 21:42:54 HBsAg (hepatitis B surface Ag), serum 2023 [facility] (Lab), [address], [place], [address], 4 21:42:53 hepatitis C virus Ab, serum 2023 [facility] (Lab), [address], [place], [address], 4 21:42:54 HIV 1+2 AB + HIV 1 p24 Ag, qualitative immunoassay , serum 2023 024 [facility] (Lab), [address], [place], [address], 4 21:42:54 RPR (rapid plasma reagin), serum 2023 024 [facility] (Lab), [address], [place], [address], 4 21:42:54 CMP, serum or plasma 2023 024 [facility] (Lab), [address], [place], [address], 4 21:42:53 hbcab (hepatitis B core Ab) igm, serum 2022 023 [facility] (Lab), [address], [place], [address], 3 22:14:58 HBsAg (hepatitis B surface Ag), serum 2022 023 [facility] (Lab), [address], [place], [address], 3 22:14:57 hepatitis C virus Ab, serum 2022 023 [facility] (Lab), [address], [place], [address], 3 22:14:57 unlisted lab - HIV 1/2 antigen/ant ibody, reflex confirmatio n 2022 023 [facility] (Lab), [address], [place], [address], 3 22:14:57 RPR (rapid plasma reagin), serum 2022 023 [facility] (Lab), [address], [place], [address], 3 22:14:58 Referral primary care provider referral 2020 021 ROMI Not available 2 05:01:10 Procedures None recorded. Surgeries None recorded. Imaging None recorded. Medication Orders spironolact one 25 mg tablet 2023 024 [facility] #[id number], [address] [place], [place], [id number], 4 12:53:15 norethindro ne (contracept ramiro) 0.35 mg tablet 2023 024 [facility] #[id number], [address] [place], [place], [id number], 4 12:52:07 metronidazo le 500 mg tablet 2022 023 [facility] #99385, [address] [place], [place], [id number], 3 12:43:07 spironolact one 25 mg tablet 2022 023 [facility] #91169, [address] [place], [place], [id number], 3 15:20:52 drospirenon e 3 mg-ethinyl estradiol 0.02 mg tablet 2022 023 [facility] #74398, [address] [place], [place], [id number], 4 12:52:12 drospirenon e 3 mg-ethinyl estradiol 0.02 mg tablet 2021 022 funmilayo [facility] #10750, [address] [place], [place], [id number], 4 12:52:12 spironolact one 25 mg tablet 2021 022 ROMI [facility] #24424, [address] [place], [place], [id number], 2 15:54:01 Patient TargetsNo targets recorded. Patient InstructionsNo instructions recorded. Reason for Referral Primary Care Provider Referr al for Anxiety Referring Physician: Aide Yip, [employer], Encounter Date: 10/09/2020 Results Created Date Observation [...] ruiz: Carlton Brandt Colle cted: 07/29 1624 WAX CUTTER Order ing Locat ion: [place] [facility] [...] as clini jumana ch nted. Not Available [facility] (Lab) [address], [place], [address], 08/06/2021 11:01:15 07/30/19 22 07/29/2021 TRICH OMONA S VAGIN SAROJ (RRNA ) trichomonas vaginalis ribosomal RNA (rrna) Negati ve negati ve Not Available [facility] (Lab) [address], [place], [address], 08/06/2021 11:01:16 07/30/19 22 07/29/2021 CT/GC (DANIEL) , THINP REP VIAL chlamydia trachomatis, PCR Negati ve negati ve Not Available [facility] (Lab) [address], [place], [address], 08/06/2021 11:01:16 07/30/19 22 07/29/2021 CT/GC (DANIEL) , THINP REP VIAL neisseria gonorrhoeae, PCR Negati ve negati ve Not Available [facility] (Lab) [address], [place], [address], 08/06/2021 11:01:16 01/20/20 23 01/19/2023 HEPAT ITIS B SURFA CE ANTIG EN hepatitis B surface antigen Non-re active non-re active This assay was perfo rmed using [employer] ratio n reage nts and test kits. Value s obtai chilango with other assay metho ds or kits canno t be used inter jordan eably . Not Available [facility] (Lab) [address], [place], [address], 01/20/2023 22:14:57 01/20/20 23 01/19/2023 HIV 1/2 ANTIG EN/AN TIBOD Y, REFLE X CONFI RMATI ON HIV antigen/anti body Nonrea ctive nonrea ctive HIV-1 antig en and HIV-1 /HIV- 2 antib odies were not detec sae. No labor atory evide nce of HIV infec tion. Not Available [facility] (Lab) [address], [place], [address], 01/20/2023 22:14:57 01/20/20 23 01/19/2023 HEPAT ITIS C ANTIB ISABELLA SCREE N, REFLE X TO CONFI RMATI ON hepatitis C antibody Non-re active non-re active Antib odies to HCV Not Detec sae, does not exclu de the possi bilit y of expos ure to HCV. Not Available [facility] (Lab) [address], [place], [address], 01/20/2023 22:14:57 01/20/20 23 01/19/2023 RPR SCREE N/REF RONY TITER /FTA RPR screen Nonrea ctive nonrea ctive Not Available [facility] (Lab) [address] [place], [address], 01/20/2023 22:14:58 01/20/20 23 01/19/2023 HEPAT ITIS B CORE, IGM hepatitis B core IgM antibody Negati ve negati ve Not Available [facility] (Lab) [address] [place], [address], 01/20/2023 22:14:58 01/20/20 23 01/19/2023 IMAGE GUIDE D PAP AND HPV REGAR DLESS image guided Pap, HPV regardless of Pap result SEE RESULT S BELOW CASE REPOR T: Cytol ogy Gynec ologi davey Repor t Case: [id number] Autho husam frankel Provi ruiz: Natasha Barrios, WAX CUTTER Colle cted: 01/19 1632 Order ing Locat [...] bonnie d, as mendoza densoned. Not Available [facility] (Lab) [address], [place], [address], 01/25/2023 13:22:49 01/20/20 23 01/19/2023 TRICH OMONA S VAGIN SAROJ (RRNA ) trichomonas vaginalis ribosomal RNA (rrna) Positi ve negati ve abnormal Not Available [facility] (Lab) [address], [place], [address], 01/25/2023 13:22:50 01/20/20 23 01/19/2023 CT/GC (DANIEL) , THINP REP VIAL chlamydia trachomatis, PCR Negati ve negati ve Not Available [facility] (Lab) [address], [place], [address], 01/25/2023 13:22:50 01/20/20 23 01/19/2023 CT/GC (DANIEL) , THINP REP VIAL neisseria gonorrhoeae, PCR Negati ve negati ve Not Available [facility] (Lab) [address], [place], [address], 01/25/2023 13:22:50 03/04/20 23 03/04/2023 CT/GC AND TRICH OMONA S VAGIN SAROJ (RRNA ), URINE chlamydia trachomatis, PCR Negati ve negati ve Not Available [facility] (Lab) [address], [place], [address], 03/05/2023 14:21:27 03/04/20 23 03/04/2023 CT/GC AND TRICH OMONA S VAGIN SAROJ (RRNA ), URINE neisseria gonorrhoeae, PCR Negati ve negati ve Not Available [facility] (Lab) [address], [place], [address], 03/05/2023 14:21:27 03/04/20 23 03/04/2023 CT/GC AND TRICH OMONA S VAGIN SAROJ (RRNA ), URINE trichomonas vaginalis ribosomal RNA (rrna) Negati ve negati ve Not Available [facility] (Lab) [address], [place], [address], 03/05/2023 14:21:27 02/14/20 24 02/14/2024 CMP(C OMPRE HENSI VE METAB OLIC PANEL ) sodium 138 mmol/ L 133-14 6 Not Available [facility] (Lab) [address], [place], [address], 02/15/2024 21:42:53 02/14/20 24 02/14/2024 CMP(C OMPRE HENSI VE METAB OLIC PANEL ) potassium 4.0 mmol/ L 3.5-5. 1 Not Available [facility] (Lab) [address], [place], [address], 02/15/2024 21:42:53 02/14/20 24 02/14/2024 CMP(C OMPRE HENSI VE METAB OLIC PANEL ) chloride 106 mmol/ L 98-107 Not Available [facility] (Lab) [address], [place], [address], 02/15/2024 21:42:53 02/14/20 24 02/14/2024 CMP(C OMPRE HENSI VE METAB OLIC PANEL ) carbon dioxide 26 mmol/ L 21-31 Not Available [facility] (Lab) [address], [place], [address], 02/15/2024 21:42:53 02/14/20 24 02/14/2024 CMP(C OMPRE HENSI VE METAB OLIC PANEL ) anion gap 6 mmol/ L 4-13 Not Available [facility] (Lab) [address], [place], [address], 02/15/2024 21:42:53 02/14/20 24 02/14/2024 CMP(C OMPRE HENSI VE METAB OLIC PANEL ) blood urea nitrogen 11 mg/dL 7-25 Not Available [facility] (Lab) [address], [place], [address], 02/15/2024 21:42:53 02/14/20 24 02/14/2024 CMP(C OMPRE HENSI VE METAB OLIC PANEL ) creatinine 0.83 mg/dL 0.60-1 .30 Not Available [facility] (Lab) [address], [place], [address], 02/15/2024 21:42:53 02/14/20 24 02/14/2024 CMP(C OMPRE HENSI VE METAB OLIC PANEL ) egfrcr (CKD-epi 2020) >90 mL/mi n/1.7 3_m2 >=60 Not Available [facility] (Lab) [address], [place], [address], 02/15/2024 21:42:53 02/14/20 24 02/14/2024 CMP(C OMPRE HENSI VE METAB OLIC PANEL ) calcium 8.6 mg/dL 8.3-10 .5 Not Available [facility] (Lab) [address], [place], [address], 02/15/2024 21:42:53 02/14/20 24 02/14/2024 CMP(C OMPRE HENSI VE METAB OLIC PANEL ) glucose 91 mg/dL 70-100 Not Available [facility] (Lab) [address], [place], [address], 02/15/2024 21:42:53 02/14/20 24 02/14/2024 CMP(C OMPRE HENSI VE METAB OLIC PANEL ) protein, total 6.5 g/dL 6.4-8. 3 Not Available [facility] (Lab) [address], [place], [address], 02/15/2024 21:42:53 02/14/20 24 02/14/2024 CMP(C OMPRE HENSI VE METAB OLIC PANEL ) albumin 4.0 g/dL 3.5-5. 0 Not Available [facility] (Lab) [address], [place], [address], 02/15/2024 21:42:53 02/14/20 24 02/14/2024 CMP(C OMPRE HENSI VE METAB OLIC PANEL ) ALT 13 units /L 9-43 Not Available [facility] (Lab) [address], [place], [address], 02/15/2024 21:42:53 02/14/20 24 02/14/2024 CMP(C OMPRE HENSI VE METAB OLIC PANEL ) alkaline phosphatase 59 units /L 34-104 Not Available [facility] (Lab) [address], [place], [address], 02/15/2024 21:42:53 02/14/20 24 02/14/2024 CMP(C OMPRE HENSI VE METAB OLIC PANEL ) AST 12 units /L 13-39 low Not Available [facility] (Lab) [address], [place], [address], 02/15/2024 21:42:53 02/14/20 24 02/14/2024 CMP(C OMPRE HENSI VE METAB OLIC PANEL ) bilirubin, total 0.3 mg/dL 0.2-1. 2 Not Available [facility] (Lab) [address], [place], [address], 02/15/2024 21:42:53 02/14/20 24 02/14/2024 HEPAT ITIS B SURFA CE ANTIG EN hepatitis B surface antigen Non-re active non-re active This assay was perfo rmed using [employer] n reage nts and test kits. Value s obtai chilango with other assay metho ds or kits canno t be used inter jordan eably . Not Available [facility] (Lab) [address], [place], [address], 02/15/2024 21:42:53 02/14/20 24 02/14/2024 HIV 1/2 ANTIG EN/AN TIBOD Y, REFLE X CONFI RMATI ON HIV antigen/anti body Nonrea ctive nonrea ctive HIV-1 antig en and HIV-1 /HIV- 2 antib odies were not detec sae. No labor atory evide nce of HIV infec tion. Not Available [facility] (Lab) [address], [place], [address], 02/15/2024 21:42:53 02/14/20 24 02/14/2024 HEPAT ITIS C ANTIB ISABELLA SCREE N, REFLE X TO CONFI RMATI ON hepatitis C antibody Non-re active non-re active Antib odies to HCV Not Detec sae, does not exclu de the possi bilit y of expos ure to HCV. Not Available [facility] (Lab) [address], [place], [address], 02/15/2024 21:42:54 02/14/20 24 02/14/2024 RPR SCREE N, REFLE X TITER /CONF IRMAT ION RPR screen Nonrea ctive nonrea ctive Not Available [facility] (Lab) [address], [place], [address], 02/15/2024 21:42:54 02/14/20 24 02/14/2024 HEPAT ITIS B CORE, IGM hepatitis B core IgM antibody Non-re active non-re active IgM anti- HBc not detec sae. Does not exclu de the possi bilit y of expos ure to or infec tion with HBV. Not Available [facility] (Lab) [address], [place], [address], 02/15/2024 21:42:54 02/14/20 24 02/14/2024 IMAGE GUIDE [...] epith elial Wilfrid garcia or An greene ([facility]) . Funga l organ isms morph [...] as clini jumana warrtirso nted. Not Available [facility] (Lab) [address], [place], [address], 02/23/2024 10:38:00 02/14/20 24 02/14/2024 TRICH OMONA S VAGIN SAROJ (RRNA ) trichomonas vaginalis ribosomal RNA (rrna) Negati ve negati ve Not Available [facility] (Lab) [address], [place], [address], 02/23/2024 10:38:01 02/14/20 24 02/14/2024 CT/GC (DANIEL) , THINP REP VIAL chlamydia trachomatis, PCR Negati ve negati ve Not Available [facility] ([facility]) [address], [place], [address], 02/23/2024 10:38:02 02/14/20 24 02/14/2024 CT/GC (DANIEL) , THINP REP VIAL neisseria gonorrhoeae, PCR Negati ve negati ve Not Available [facility] ([facility]) [address], [place], [address], 02/23/2024 10:38:02 Result Notes None recorded. Problems Name Problem SNOMED Code Status Onset Date Resolution Date Notes Provider Name and Address Organization Details Recorded Time Depressi ve disorder 87501280 Completed 201605/02/2020 Depressi on NOS;Rocky rded Elsewher e: No Locat ion: [facility] S ource: [employer] jayne: N Yahairati ce ID: 0001 Valentin lable Time: 03:15:[address] [facility] 15:54:[address] Concept Completed 201805/02/2020 Encntr for general adult medical exam w/o abnormal findings ;Recorde d Elsewher e: No Locat ion: [facility] S ource: [employer] Teacher jayne: N Yahairati ce ID: 0001 Valentin lable Time: 11:00:00 AM Briana Corbin [facility] 15:54:45 Mass of right breast [id number] Completed 201805/02/2020 Lump in the right breast;R ecorded Elsewher e: No Locat ion: [facility] S ource: [employer] Teacher jayne: N Yahairati ce ID: 0001 Valentin lable Time: 10:30:00 AM Briana moseley [facility] 15:54:31 Pregnanc y test positive [id number] Completed 201205/02/2020 Pregnanc y examinat ion or test, positive result;R ecorded Elsewher e: No Locat ion: [facility] S ource: [employer] jayne: N Yahairati ce ID: 0001 Valentin lable Time: 11:30:00 AM Briana moseley [facility] 15:54:[address] Concept Completed 201605/02/2020 Encntr for chief nurse executive exam (general ) (routine ) w/o abn findings ;Recorde d Elsewher e: No Locat ion: [facility] S ource: [employer] Teacher jayne: N Yahairati ce ID: 0001 Valentin lable Time: 11:00:00 AM Briana moseley, [facility] 15:54:47 Pregnanc y test negative [id number] Completed 201605/02/2020 Encounte r for pregnanc y test, result negative ;Recorde d Elsewher e: No Locat ion: [facility] S ource: [employer] Teacher jayne: N Yahairati ce ID: 0001 Valentin lable Time: 11:45:00 AM Briana moseley, [facility] 15:54:37 Routine antenata l care Completed 201205/02/2020 Supervis ion of other normal pregnanc y;Record ed Elsewher e: No Locat ion: [facility] S ource: [employer] Teacher jayne: N Yahairati ce ID: 0001 Valentin lable Time: 11:00:00 AM Briana moseley, [facility] 15:54:41 Speciali zed medical examinat ion Completed 201305/02/2020 Gynecolo gical Examinat ion;Rocky rded Elsewher e: No Locat ion: [facility] S ource: [employer] jayne: N Yahairati ce ID: 0001 Valentin lable Time: 01:45:00 PM Briana moseley, [facility] 15:54:48 Known OR suspecte d abnormal ity affectin g manageme nt of mother Completed 201205/02/2020 Other known or suspecte d abnormal ity, not elsewher e classifi ed, affectin g manageme nt of mother, antepart um conditio n or complica tion;Rec orded Elsewher e: No Locat ion: [facility] S ource: [employer] Teacher jayne: N Yahairati ce ID: 0001 Valentin lable Time: 04:49:00 PM Briana moseley [facility] 15:54:29 Primigra rayray [id number] Completed 201205/02/2020 Supervis ion of normal first pregnanc y;Record ed Elsewher e: No Locat ion: [facility] S ource: [employer] Teacher jayne: N Yahairati ce ID: 0001 Valentin lable Time: 11:30:00 AM Briana moseley [facility] 15:54:40 Anxiety state [id number] Completed 201305/02/2020 Anxiety state, unspecif ied;Rocky rded Elsewher e: No Locat ion: [facility] S ource: [employer] jayne: N Yahairati ce ID: 0001 Valentin lable Time: 10:30:00 AM [facility]:54:16 Ultrason ography Completed 201205/02/2020 Antenata l screenin g for malforma tion using ultrason ics;Rocky rded Elsewher e: No Locat ion: [facility] S ource: [employer] jayne: N Yahairati ce ID: 0001 Valentin lable Time: 11:30:00 AM Briana moseley [facility] 15:54:49 Antenata l screenin g Completed 201205/02/2020 Antenata l screenin g for malforma tion using ultrason ics;Rocky rded Elsewher e: No Locat ion: [facility] S ource: [employer] Teacher jayne: N Practi ce ID: 0001 Valentin lable Time: 11:30:00 AM Briana moseley [facility] 15:54:15 Congenit al malforma tion [id number] Completed 201205/02/2020 Antenata l screenin g for malforma tion using ultrason ics;Rocky rded Elsewher e: No Locat ion: [facility] S ource: [employer] Teacher jayne: N Practi ce ID: 0001 Valentin lable Time: 11:30:00 AM Briana moseley, [facility] 15:54:18 Emotiona l state finding Completed 201605/02/2020 Anxiety depressi on;Recor ded Elsewher e: No Locat ion: [facility] S ource: [employer] jayne: N Practi ce ID: 0001 Valentin lable Time: 11:00:00 AM Briana moseley, [facility] 15:54:22 Atypical squamous cells of undeterm ined signific ance on cervical Papanico laou smear [id number] Completed 201505/02/2020 Atyp squam cell of undet signfc cyto smr crvx (ASC-US) ;Recorde d Elsewher e: No Locat ion: [facility] N Practi ce ID: 0001 Valentin lable Time: 10:30:00 AM Briana moseley, [facility] 15:54:17 Screenin g for malignan t neoplasm of cervix Completed 201205/02/2020 Screenin g for malignan t neoplasm s of the cervix;R ecorded Elsewher e: No Locat ion: [facility] S ource: [employer] Teacher jayne: N Practi ce ID: 0001 Valentin lable Time: 11:30:00 AM Briana moseley, [facility] 15:54:43 Evaluati on finding Completed 201705/02/2020 Hematuri a, unspecif ied;Rocky rded Elsewher e: No Locat ion: [facility] S ource: [employer] Teacher jayne: N Practi ce ID: 0001 Valentin lable Time: 10:45:00 AM Briana moseley, [facility] 1 15:54:23 Finding by site Completed 201605/02/2020 Dermatit is, unspecif ied;Rocky rded Elsewher e: No Locat ion: [facility] S ource: [employer] Teacher jayne: N Practi ce ID: 0001 Valentin lable Time: 11:30:00 AM Briana moseley [facility] 1 15:54:25 Adult health examinat ion Completed 201405/02/2020 ROUTINE MEDICAL EXAM;Rec orded Elsewher e: No Locat ion: [facility] S ource: [employer] jayne: N Practi ce ID: 0001 Valentin lable Time: 10:00:00 AM Briana moseley [facility] 15:54:12 Amenorrh ea [id number] Completed 201205/02/2020 Absence of menstrua tion;Rec orded Elsewher e: No Locat ion: [facility] S ource: [employer] Teacher jayne: N Practi ce ID: 0001 Valentin lable Time: 11:30:00 AM Briana moseley [facility] 15:54:13 Finding of pattern of menstrua l cycle [id number] Completed 201505/02/2020 Irregula r interval between menstrua l bleeding ;Recorde d Elsewher e: No Locat ion: [facility] S ource: [employer] Teacher jayne: N Practi ce ID: 0001 Valentin lable Time: 01:30:00 PM Briana moseley [facility] 15:54:26 Acute vaginiti s [id number] Completed 201705/02/2020 Acute vulvovag initis;R ecorded Elsewher e: No Locat ion: [facility] S ource: [employer] Teacher jayne: N Practi ce ID: 0001 Valentin lable Time: 10:45:00 AM Briana moseley, [facility] 15:54:11 Poor growth affectin g manageme nt [id number] Completed 201205/02/2020 Poor growth, affectin g manageme nt of mother, antepart um conditio n or complica tion;Rec orded Elsewher e: No [facility]: [employer] Teacher jayne: Sarah Nieto ce ID: 0001 Valentin lable Time: 02:45:00 PM Briana moseley, [facility] 15:54:34 Postpart um care Completed 201205/02/2020 Post Followup ;Recorde d Elsewher e: No Locat ion: [facility] S ource: [employer] Teacher jayne: Sarah Nieto ce ID: 0001 Valentin lable Time: 02:00:00 PM Briana moseley, [facility] 15:54:36 Oral contrace ptive prescrib ed Completed 201305/02/2020 Counseli ng and prescrip tion for oral contrace ptive;Re corded Elsewher e: No Locat ion: [facility] S ource: [employer] Teacher jayne: Sarah Nieto ce ID: 0001 Valentin lable Time: 10:30:00 AM Briana moseley, [facility] 15:54:33 Increase d frequenc y of urinatio n [id number] Completed 201505/02/2020 Frequenc y of micturit ion;Rocky rded Elsewher e: No Locat ion: [facility] S ource: [employer] jayne: Sarah Nieto ce ID: 0001 Valentin lable Time: 03:30:00 PM Briana moseley, [facility] 15:54:28 Delivery normal [id number] Completed 201205/02/2020 Normal delivery ;Practic e ID: 0001 Briana Corbin [facility] 15:54:19 Single live from dick engel y [id number] Completed 201205/02/2020 Mother with single liveborn ;Practic e ID: 0001 Briana Corbin [facility] 15:54:44 Congenit al heart disease [id number] Completed 202007/28/2021 [facility] 2 14:26:23 Problem Notes None recorded. Procedures Surgical History Date Name Laterality Status Provider Name and Address Organization Details Recorded Time 02/14/20 24 Date of Last Pap Smear completed [facility] 02/14/2024 12:02:24 11/12/19 19 Date of Last Mammogram completed [facility] 10/09/2020 12:59:12 06/09/19 [address] [facility] 05/02/2020 17:17:01 03/29/19 09 termination of completed [facility] 02/14/2024 12:03:57 Imaging Results None recorded. Procedure Notes None recorded. Medical Equipment None Reported. Allergies Allergen ID Allergen Name Allergen Category Reaction Reaction Severity Criticality Documentation Date Start Date Code Code System Note Provider Name and Address Organization Details Recorded Time 15037 Substance with sulfonami de structure and antibacte rial mechanism of action (substanc e) medicatio n Not available Not available Not available 05/03/2020 51090 8003 SNOMED Briana Corbin [facility] 12:58:00 Medications Name Sig Start [...] Prescrib ed Elsewher e: No Locat ion: Michi baer [facility] odify By: cmedical Encount er DateTime [...] Prescrib ed Elsewher e: No Locat ion: Michi baer [facility] odify By: héctor tz Encou nter DateTime : 04/30/19 17 09:47:10 AM Not Available Not Available Not Available fluconazo le 150 mg tablet Take 1 tablet by oral route for 1 day. 2024 active Not Available Not Available Not Avai lable prednison e 20 mg tablet TAKE 1 [...] Prescrib ed Elsewher e: No [facility] By: marvin Worthy ter DateTime : 10/07/19 16 11:48:31 AM Not Available Not Available Not Available Macrobid 100 mg capsule take 1 capsule (100MG) by oral route every 12 hours with food 06/05 completed Prescrib ed Elsewher e: No Locat ion: [facility] odify By: omedical Encount er DateTime : [...] Prescrib ed Elsewher e: No Locat ion: Michi baer [facility] odify By: cornelio Baer ncounter DateTime : 10/08/19 16 09:25:26 AM Not Available Not Available Not Available lorazepam 0.5 mg tablet TAKE 1 TABLET BY MOUTH THREE TIMES DAILY NEEDED 07/29 completed Not Available Not Available Not Available Zoloft 50 mg tablet take 1 tablet by oral route every day 04/14 completed Prescrib ed Elsewher e: No Locat ion: Michi baer [facility] odify By: héctor Mraavilla nter DateTime : 04/27/19 17 03:15:00 PM Not Available Not Available Not Available Cipro 500 mg tablet take 1 tablet by oral route every 12 hours 04/14 completed Prescrib ed Elsewher e: No Locat ion: [facility] odify By: héctor Maravilla nter DateTime : 11/10/19 17 11:30:00 AM Not Available Not Available Not Available Tylenol 325 mg tablet take 1 tablet by oral route every 4 hours as needed 03/19 completed Prescrib ed Elsewher e: Yes Loca tion: [facility] odify By: kj Baer ncounter DateTime : 05/03/19 13 11:30:00 AM Not Available Not Available Not Available Vitamin D2 1,250 mcg (50,000 unit) capsule take 1 capsule ([id number] ITS) by oral route every week 05/30 completed Prescrib ed Elsewher e: No Locat ion: [facility] odify By: chaya hills DateTime : 06/11/19 13 02:49:38 PM Not Available Not Available Not Available Zoloft 100 mg tablet take 1 tablet by oral route every day 04/27 completed Prescrib ed Elsewher e: No Locat ion: Reinasushil buffy [facility] odify By: héctor Maravilla nter DateTime [...] ed Elsewher e: No Locat ion: [facility] odify By: héctor Maravilla nter DateTime : 07/29/19 16 08:09:21 AM Not Available Not Available Not Available loratadin e 10 mg tablet TAKE 1 TABLET BY MOUTH DAILY 02/12 completed Not Available Not Available Not Available buspirone 15 mg tablet take 1 tablet by oral route 2 times every day 07/29 completed Prescrib ed Elsewher e: No Locat ion: [facility] odify By: héctor Maravilla nter DateTime : 11/10/19 17 11:30:00 AM Not Available Not Available Not Available NuvaRing 0.12 mg-0.015 mg/24 hr vaginal insert 1 vaginal ring by vaginal route every month leave in place for 3 weeks, remove for 1 week 05/03 completed Prescrib ed Elsewher e: No [facility] By: héctor Maravilla nter DateTime : 10/12/19 19 11:00:00 AM Not Available Not Available Not Available escitalop curtis 20 mg tablet TAKE 1 TABLET BY MOUTH DAILY 01/19 completed Not Available Not Available Not Available Lexapro 10 mg tablet take 1 tablet by oral route every day 10/11 completed Prescrib ed Elsewher e: No Locat ion: Michi baer [facility] odify By: tahira duarte DateTime : 04/14/19 18 10:45:00 AM Not Available Not Available Not Available Mononessa (28) 0.25 mg-35 mcg tablet take 1 tablet by oral route every day 01/21 completed Prescrib ed Elsewher e: No Locat ion: Izzy buffy [facility] odify By: héctor rogel DateTime : 01/22/20 16 01:30:00 PM Not [...] Prescrib ed Elsewher e: Yes Loca tion: [facility] odify By: wale duarte DateTime : 05/03/19 13 11:30:00 AM Not Available Not Available Not Available Danny-Tye uo DHA 29 mg-1 mg-400 mg oral pack take 2 by Oral route every day for 30 days 06/01 completed Prescrib ed Elsewher e: No [facility]at [facility] odify By: wale duarte DateTime : 05/03/19 13 11:30:00 AM Not Available Not Available Not Available Vitals Date Recorded Body height Body mass index (BMI) Body weight Systolic blood pressure Diastolic blood pressure Provider Name and Address Organization Details Last Updated DateTime 10/09/2020 172.72 cm 26.1 kg/m2 85021.45 g 128 mm[Hg] 81 mm[Hg] Jo-Ann Russell [facility] 16:51:51 Date Recorded Body height Body mass index (BMI) Body weight Provider Name and Address Organization Details Last Updated DateTime 07/29/2021 161.29 cm 27.7 kg/m2 76617.75 g Jo-Ann Russell [facility] 07/29/2021 15:38:01 Date Recorded Systolic blood pressure Diastolic blood pressure Provider Name and Address Organization Details Last Updated DateTime 07/29/2021 122 mm[Hg] 74 mm[Hg] Aide Yip, [facility]- [address], [place], [address], [facility] 07/29/2021 15:47:12 Date Recorded Body height Body mass index (BMI) Body weight Systolic blood pressure Diastolic blood pressure Provider Name and Address Organization Details Last Updated DateTime 01/19/2023 161.29 cm 30.3 kg/m2 31523.07 g 123 mm[Hg] 82 mm[Hg] Sarahi Agrawal [facility] 14:42:19 Date Recorded Body height Body mass index (BMI) Body weight Provider Name and Address Organization Details Last Updated DateTime 03/04/2023 161.29 cm 30.7 kg/m2 61036.54 g Radha Winkler [facility] 03/04/2023 12:22:39 Date Recorded Body height Body mass index (BMI) Body weight Systolic blood pressure Diastolic blood pressure Provider Name and Address Organization Details Last Updated DateTime 02/14/2024 161.29 cm 28.1 kg/m2 37670.37 g 126 mm[Hg] 85 mm[Hg] Alondra Winter [facility] 12:01:50 Social History Question Answer Notes LastModified by Organizat ion Details LastModified Time Tobacco Smoking Status Current Some Day Smoker social smoker [facility] 01/19/2023 14:44:27 What Is Your Level Of Alcohol Consumption? None Information not available 05/03/2020 Are You Blind Or Do You Have Difficulty Seeing? No Information not available 10/09/2020 What Is Your Level Of Caffeine Consumption? None [email or web address] Information not available 05/03/2020 Are You Deaf [...] Anxious, Or Unable To Sleep At Night)? [id number] Information not available 10/09/2020 Do You Use Any Illicit Or Recreational Drugs? No [email or web address] Information not available 05/03/2020 Do You Use Sunscreen Routinely? Yes Information not available 10/09/2020 Has Tobacco Cessation Counseling Been Provided? No [email or web address] Information not available 05/03/2020 Do You Or Have You Ever Used Any Other Forms Of Tobacco Or Nicotine? No [email or web address] Information not available 05/03/2020 Sex: Unknown Functional [...] 07/29/2021 What is your exercise level? None [email or web address] Information not available 05/03/2020 Mental Status None recorded. Family History Relationship Description Onset Age of this Age Resolved Age Notes LastModified by Organization Details LastModified Time Mother Hypertensive disorder [email or web address] Not available 2020 12:50:44 Medical History Condition Response Allergies (Food, seasonal, environmental ) Y Other N Blood Transfusion N Drug/Latex Allergies/Reactions Y Breast Cancer N Dermatologic Disorders N Lung Disease N [...] SNOMED-CT Code Diagnosis ICD10 Code Diagnosis Note [id number] [facility] [address] [address] 05/03/2020 12:50:51 05/03/2020 17:01:36 Gynecologic examination 63173430 Z01.419 Take Calcium with Vitamin D 1200mg [...] Ely No issues or quesitons. Cystic acne 11928391 L70 .0 Will have updated labs from PCP sent so we do not have to repeat CMP. Has been on these meds for >1yr very stable. [id number] Aide Yip [facility] [address],[facility] [place] [address] 10/09/2020 16:20:21 10/10/2020 14:15:55 Dyspareunia 43370089 N94.10 Exam wnlWill monitorIf occurs again can [...] this patient s visit, including available hand painter tumbling barrel upon arrive, temperatur e check and being asked a series of screening questions. All staff wore face coverings during this encounter, as well as provided additional cleaning and sanitizing of all surfaces, including countertop s, pens, chairs, door handles, light switches, etc, prior to and following the patient s visit. Anxiety 11379900 F41.9 Lost PCP who is out of her network now.1-RF of lorazepam given with instructio ns to use sparingly; and also needs to est care with a new PCP to take over this medication as it is not something that is routinely prescribed here.Agree able to help with referral [id number] Aide Yip [facility] [address] [address] 07/29/2021 15:19:39 07/29/2021 16:07:09 Gynecologic examination 90178012 Z01.419 Take Calcium with Vitamin D 1200mg [...] Screen na Routine Labs na Cystic acne 51562069 L70 .0 Will have updated labs from PCP sent so we do not have to repeat CMP. Has been on these meds for >2yr very stable. [id number] ANTHONY Nicole [place] [address] [address] 01/19/2023 14:32:17 01/19/2023 15:50:08 Gynecologic examination 54172365 Z01.419 WWEBC - OCPr/b/a reviewedre fills sent [...] plan if desired. Venereal d isease screening 417857002 Z11.3 Sexually t ransmitted infectious disease 8901674 A64 Cystic acne 10597373 L70 .0 Will have updated labs from PCP sent so we do not have to repeat CMP.Has been on these meds for >3yr very stable and wishes to continuesh buffy is aware of the risk/benef its of OCP given her medical hx, she is not interested in progestero ne only methods at this time [id number] ANTHONY Nicole [place] [address] [address] 03/04/2023 11:56:28 03/04/2023 12:43:34 Infection by Trichomonas 36662752 A59.9 gc/ct/tric h testing sentrecomm ended retreatmen [...] plan of care. Venereal d isease screening 699551943 Z11.3 [id number] Natasha StephanieneerajANTHONY [place] [address] [address] 02/14/2024 11:46:43 02/14/2024 12:54:07 Gynecologic examination 36193380 Z01.419 Z11.51 Z11.8 Z11.3 WWEpap updatedgc/ ct/trich [...] have been answered. Contracept ion care management 450037720 Z30.9 discussed progestero ne only options d/t h/o migraine with aurarx sent for POP, r/b/a reviewed Venereal d isease screening 822654966 Z11.3 Acne 46211306 L70.9 Desires to continue spironolac tone for acneyearly CMP orderedref ills sent, r/b/a reviewed Sexually t ransmitted infectious disease 8232171 A64 Cystic acne 60652820 L70 .0 Health Concerns Section Related Observation LastModified by Organization Detai ls LastModified Time None Recorded Concern Status LastModified by Organization Details LastModified Time None Recorded Advance Directives Directive None Recorded Payers Encounter Date Sequence Insurance Name Policy Number Policy Lau Covered Member ID Lau Member ID Guarantor Name 10/09/2020 1 [facility] - DOS ON OR AFTER 20 (MEDICAID REPLACEMENT - HMO) Pooja Khoury [id number] Pooja Khoury 07/29/2021 1 [facility] - DOS ON OR AFTER 20 (MEDICAID REPLACEMENT - HMO) Pooja Khoury [id number] Pooja Khoury 01/19/2023 1 [facility] - [facility] ON OR AFTER 09/26/20 (MEDICAID REPLACEMENT - HMO) Pooja Khoury [id number] oPoja Khoury 03/04/2023 1 [facility] - DOS ON OR AFTER 20 (MEDICAID REPLACEMENT - HMO) Pooja Khoury [id number] Pooja Khoury 02/14/[address] [facility] ON OR AFTER 09/26/20 (MEDICAID REPLACEMENT - HMO) Pooja Khoury [id number] Pooja Khoury Notes Date Note Type Note [...] will take over her Rx's. Aide Yip, [facility]- [address], [place], [address], [facility] 10/09/2020 17:46:31 2 text/html Annual GYNReported [...] HPV typing ANTHONY [facility] [address], [place], [address], [facility] 07/29/2021 16:00:56 3 text/html Annual GYNReported [...] starting age 39Notes:hx of asymptomatic mitral valve prolapsePCP/brownell operator aware pt is on OCP, however does not require routine cardiology visiton spironolactone and OCP for acne, recently had CMP at PCP office that was normal per pt. Wants to continue with these medications hx of abnormal papslast abnormal 2011, HPV (+)last pap 07/2021, normal denies hx of DVT/PE, HTN, Stroke/RI, cancer, liver disease, or migraine with aurashe is a non-smoker ANTHONY Nicole [address], [place], [address], [facility] 01/19/2023 15:21:56 3 text/html 32yo [id number] for STI testing(+) trichomonas 01/19/2023 - completed treatment. Partner has not been treated, has been SA with condomsno vaginal symptomsneg pelvic painOCP for BC ANTHONY Nicole [address], [place], [address], [facility] 03/04/2023 12:43:21 4 text/html Annual GYNReported [...] OCPon spironolactone for acneh/o migraine with aura ANTHONY Nicole [address], [place], [address], [facility] [place] 02/14/2024 12:53:35 OBGyn Episode Ob Episode Information Episode Created Date Number of Fetuses Patient Bloodtype Patient rh Status Prepregnancy Weight lbs Domestic Partner Domestic Partner Phone Father Name Fiber Glass Worker Status 05/03/19 21 1 CLOSED Fetus Data [...] Domestic Partner Domestic Partner Phone Father Name Fiber Glass Worker Status 10/10/19 21 1 CLOSED Fetus Data First Name Last Name Admitted to NICU Weight (g) Sex Living Outcome Pediatric Complications Fetus ID Race Codes Race Delivery Type , Induced [id number] García Calculation Initial García Date Initial Exam [...]
--- OUTSIDE RECORDS SUMMARY | 2024-08-01 12:41 | XMS_ITS | Clinical Summary ---
Author Organization [facility] Care Team Providers Care Underwater Hunter Trapper Name Role Phone Unavailable Primary Care Provider Unavailabl e Social History Tobacco Use Types Packs/Day Years Used Date Smoking Tobacco: Never Assessed Comments Unknown Sex and Gender Information Value Date Recorded Sex Assigned at Not on file Legal Sex Female 2:16 PM CHIEF RESOURCE OFFICER Gender Identity Not on file Sexual Orientation [...]
--- OUTSIDE RECORDS SUMMARY | 2024-08-01 12:41 | XMS_ITS | Clinical Summary ---
Author Organization [facility] Address [address] [place] [address] Care Team Providers Care Paper Cone Grader Name Role Phone Patricia Martinez HODAN Primary Care Provider [phone] Allergies Active Allergy Reactions Criticality Noted Date [...] 60 g 0 Active VITAMIN D2, ERGOCALCIFEROL, 46111 UNITS capsuleIndicati ons:Vitamin D deficiency TAKE 1 [...] patient's age to complete this topic Insurance [employer] Care Teams Paper Cone Grader Relationship Specialty Start Date End Date Patricia Martinez FNP [address] [place] [address] PCP - General NURSE PRACTITIONER 03/29/17
--- OUTSIDE RECORDS SUMMARY | 2024-08-01 12:41 | XMS_ITS | Clinical Summary ---
Author Organization [facility] [employer] Address [address] [place] [address] Care Team Providers Care Rivet Sticker Name Role Phone Patricia Martinez APRN-PUNCHBOARD FILLING MACHINE OPERATOR Primary Care Provider [phone] Source Comments [facility] [employer] [facility],non-owned Affiliates and Associated Physician Practices is amultiple site organization consisting of ambulatory clinics and hospital sitesin [place], [place], [place] and [place]. This disclosure is being madepursuant to the Care Everywhere program and may not contain all information available regarding this patient. Last updated 17.[employer] Allergies Active Allergy Reactions Criticality Noted Date [...] on file Legal Sex Female 5:45 AM SHINGLE CUTTER Gender Identity Not on file Sexual Orientation Not on file Last Filed Vital Signs Vital Sign Reading Time Taken Comments Blood Pressure 115/64 02/15/2019 1:56 PM SHINGLE CUTTER Pulse 88 02/15/2019 1:56 PM SHINGLE CUTTER Temperature 37.3 C (99.1 F) 02/15/2019 1:56 PM SHINGLE CUTTER Respiratory Rate 20 02/15/2019 1:56 PM SHINGLE CUTTER Oxygen Saturation 99% 02/15/2019 1:56 PM SHINGLE CUTTER Inhaled Oxygen Concentration - - Weight 59.9 kg (132 lb) 02/15/2019 1:56 PM SHINGLE CUTTER Height 160 cm (5' 3 ) 02/15/2019 1:56 PM SHINGLE CUTTER Body Mass Index 23.38 02/15/2019 1:56 PM SHINGLE CUTTER Plan of Treatment Health Maintenance Due Date [...] patient's age to complete this topic Insurance [facility] [place]ICAID - [place] Care Teams Rivet Sticker Relationship Specialty Start Date End Date Patricia Martinez APRN-DARWIN [address] [place] [address] PCP - General 12/28/18
== END 2024-08-01 12:35 | disposition home or self-care (01) ==
PROVIDERS: PCP Nurse Practitioner Family; Visit Provider Physician Assistant Surgical
DX: S62.613A Displaced fracture of proximal phalanx of left middle finger, initial encounter for closed fracture (principal); X58.XXXA Exposure to other specified factors, initial encounter
CPT/HCPCS: 73130

== ENCOUNTER 2024-08-15 10:38 | Outpatient (CLI) | payer OTHER, SELFPAY ==
--- NOTE | ~2024-08-15 | XR_ITS ---
EXAM: XR hand LT min 3V, XR finger 3rd LT min 2V DATE: 08/15/2024 11:55 (accession [id number]), 08/15/2024 10:56 (accession [id number]) HISTORY: S62.613A - Displaced fracture of proximal phalanx of left... . COMPARISON: 08/01/2024. FINDINGS: Uncomplicated appearing fixation wires in the left third proximal phalanx, which were remov ed before imaging the hand. Hand imaging performed in a cast, which obscures osseous detail. [place]emons tration of the oblique left third proximal phalanx fracture, with evidence of early healing callus. N ormal mineralization. No new acute fracture or dislocation. No lytic or blastic lesion. Joint spaces are maintained. No erosion or periosteal change. Soft tissues within normal limits. IMPRESSION: Fixation pin removal. Healing left third proximal phalanx fracture, in unchanged alignmen t. Reviewed, dictated and finalized at location K. IMPRESSION: Fixation pin removal. Healing left third proximal phalanx fracture, in unchanged alignment.
--- OUTSIDE RECORDS SUMMARY | 2024-08-15 10:56 | XMS_ITS | Clinical Summary ---
Author Organization [facility] Address [address] [place] [address] Care Team Providers Care Banbury Operator Name Role Phone Patricia Martinez HODAN Primary Care Provider [phone] Allergies Active Allergy Reactions Criticality Noted Date [...] 60 g 0 Active VITAMIN D2, ERGOCALCIFEROL, 80875 UNITS capsuleIndicati ons:Vitamin D deficiency TAKE 1 [...] patient's age to complete this topic Insurance [employer] Care Teams Banbury Operator Relationship Specialty Start Date End Date Patricia Martinez FNP [address] [place] [address] PCP - General NURSE PRACTITIONER 03/29/17
--- OUTSIDE RECORDS SUMMARY | 2024-08-15 10:56 | XMS_ITS | Clinical Summary ---
Author Organization [facility] [employer] Address [address] [place] [address] Care Team Providers Care Integration Project Manager Name Role Phone Patricia Martinez APRN-OUTSIDE PHYSICAL DAMAGE APPRAISER Primary Care Provider [phone] Source Comments [facility] [employer],non-owned Affiliates and Associated Physician Practices is amultiple site organization consisting of ambulatory clinics and hospital sitesin [place], [place], [place] and [place]. This disclosure is being madepursuant to the Care Everywhere program and may not contain all information available regarding this patient. Last updated 17.[employer] Allergies Active Allergy Reactions Criticality Noted Date [...] on file Legal Sex Female 5:45 AM STONE SETTER METAL OPTICAL FRAMES Gender Identity Not on file Sexual Orientation Not on file Last Filed Vital Signs Vital Sign Reading Time Taken Comments Blood Pressure 115/64 02/15/2019 1:56 PM STONE SETTER METAL OPTICAL FRAMES Pulse 88 02/15/2019 1:56 PM STONE SETTER METAL OPTICAL FRAMES Temperature 37.3 C (99.1 F) 02/15/2019 1:56 PM STONE SETTER METAL OPTICAL FRAMES Respiratory Rate 20 02/15/2019 1:56 PM STONE SETTER METAL OPTICAL FRAMES Oxygen Saturation 99% 02/15/2019 1:56 PM STONE SETTER METAL OPTICAL FRAMES Inhaled Oxygen Concentration - - Weight 59.9 kg (132 lb) 02/15/2019 1:56 PM STONE SETTER METAL OPTICAL FRAMES Height 160 cm (5' 3 ) 02/15/2019 1:56 PM STONE SETTER METAL OPTICAL FRAMES Body Mass Index 23.38 02/15/2019 1:56 PM STONE SETTER METAL OPTICAL FRAMES Plan of Treatment Health Maintenance Due Date [...] patient's age to complete this topic Insurance [facility] MEDICAID - [place] Care Teams Integration Project Manager Relationship Specialty Start Date End Date Patricia Martinez APRN-DARWIN [address] [place] [id number] PCP - General 12/28/18
--- OUTSIDE RECORDS SUMMARY | 2024-08-15 10:56 | XMS_ITS | Data Portability ---
Author Organization [facility] Address [address] [place] [address] Assessment Encounter Date Assessment Date Assessment LastModified [...] a year unless there are new symptoms. [email or web address] Not available 02/14/2024 12:01:29 Plan of Treatment Reminders Order Date Submit Date Provider Last Modified By Organization Details Last Modified Time Details Appointments None recorded. Lab hbcab (hepatitis B core Ab) igm, serum 2023 [facility] (Lab), [address], [place], [address], 21:42:54 HBsAg (hepatitis B surface Ag), serum 2023 [facility] (Lab), [address], [place], [address], 4 21:42:53 hepatitis C virus Ab, serum 2023 [facility] (Lab), [address], [place], [address], 4 21:42:54 HIV 1+2 AB + HIV 1 p24 Ag, qualitative immunoassay , serum 2023 024 [facility] (Lab), [address], [place], [address], 4 21:42:54 RPR (rapid plasma reagin), serum 2023 024 [facility] (Lab), [address], [place], [address], 4 21:42:54 CMP, serum or plasma 2023 024 [facility] (Lab), [address], [place], [address], 4 21:42:53 hbcab (hepatitis B core Ab) igm, serum 2022 023 [facility] (Lab), [address], [place], [address], 3 22:14:58 HBsAg (hepatitis B surface Ag), serum 2022 023 [facility] (Lab), [address], [place], [address], 3 22:14:57 hepatitis C virus Ab, serum 2022 023 [facility] (Lab), [address], [place], [address], 3 22:14:57 unlisted lab - HIV 1/2 antigen/ant ibody, reflex confirmatio n 2022 023 [facility] (Lab), [address], [place], [address], 3 22:14:57 RPR (rapid plasma reagin), serum 2022 023 [facility] (Lab), [address], [place], [address], 3 22:14:58 Referral primary care provider referral 2020 021 ROMI Not available 2 05:01:10 Procedures None recorded. Surgeries None recorded. Imaging None recorded. Medication Orders spironolact one 25 mg tablet 2023 024 [id number], [address], [place], [id number], 4 12:53:15 norethindro ne (contracept ramiro) 0.35 mg tablet 2023 024 [facility] #97103, [address], [place], [id number], 4 12:52:07 metronidazo le 500 mg tablet 2022 023 [facility] #26681, [address], [place], [id number], 3 12:43:07 spironolact one 25 mg tablet 2022 023 [facility] #59925, [address], [place], [id number], 3 15:20:52 drospirenon e 3 mg-ethinyl estradiol 0.02 mg tablet 2022 023 [facility] #08414, [address], [place], [id number], 4 12:52:12 drospirenon e 3 mg-ethinyl estradiol 0.02 mg tablet 2021 022 funmilayo [facility] #57338, [address], [place], [id number], 4 12:52:12 spironolact one 25 mg tablet 2021 022 ROMI [facility] #52208, [address], [place], [id number], 2 15:54:01 Patient TargetsNo targets recorded. Patient InstructionsNo instructions recorded. Reason for Referral Primary Care Provider Referr al for Anxiety Referring Physician: Aide Yip, SERVICE AND REPAIR SUPERVISOR, Encounter Date: 10/09/2020 Results Created Date Observation [...] ruiz: Carlton Brandt Colle cted: 07/29 1624 EXTENSION SERVICE AGENT Order ing Locat ion: [place] [facility] [...] as clini jumana ch nted. Not Available [facility] (Lab) [address], [place], [address], 08/06/2021 11:01:15 07/30/19 22 07/29/2021 TRICH OMONA S VAGIN SAROJ (RRNA ) trichomonas vaginalis ribosomal RNA (rrna) Negati ve negati ve Not Available [facility] (Lab) [address] [facility], [place], [address], 08/06/2021 11:01:16 07/30/19 22 07/29/2021 CT/GC (DANIEL) , THINP REP VIAL chlamydia trachomatis, PCR Negati ve negati ve Not Available [facility] (Lab) [address] [facility] [facility], [place], [address], 08/06/2021 11:01:16 07/30/19 22 07/29/2021 CT/GC (DANIEL) , THINP REP VIAL neisseria gonorrhoeae, PCR Negati ve negati ve Not Available [facility] (Lab) [address] [facility] [facility], [place], [address], 08/06/2021 11:01:16 01/20/20 23 01/19/2023 HEPAT ITIS B SURFA CE ANTIG EN hepatitis B surface antigen Non-re active non-re active This assay was perfo rmed using [employer] ratio n reage nts and test kits. Value s obtai chilango with other assay metho ds or kits canno t be used inter jordan eably . Not Available [facility] (Lab) [address] [facility], [place], [address], 01/20/2023 22:14:57 01/20/20 23 01/19/2023 HIV 1/2 ANTIG EN/AN TIBOD Y, REFLE X CONFI RMATI ON HIV antigen/anti body Nonrea ctive nonrea ctive HIV-1 antig en and HIV-1 /HIV- 2 antib odies were not detec sae. No labor atory evide nce of HIV infec tion. Not Available [facility] (Lab) [address] [facility], [place], [address], 01/20/2023 22:14:57 01/20/20 23 01/19/2023 HEPAT ITIS C ANTIB ISABELLA SCREE N, REFLE X TO CONFI RMATI ON hepatitis C antibody Non-re active non-re active Antib odies to HCV Not Detec sae, does not exclu de the possi bilit y of expos ure to HCV. Not Available [facility] (Lab) [address] [facility], [place], [address], 01/20/2023 22:14:57 01/20/20 23 01/19/2023 RPR SCREE N/REF RONY TITER /FTA RPR screen Nonrea ctive nonrea ctive Not Available [facility] (Lab) [address] [place], [address], 01/20/2023 22:14:58 01/20/20 23 01/19/2023 HEPAT ITIS B CORE, IGM hepatitis B core IgM antibody Negati ve negati ve Not Available [facility] (Lab) [address] [place], [address], 01/20/2023 22:14:58 01/20/20 23 01/19/2023 IMAGE GUIDE D PAP AND HPV REGAR DLESS image guided Pap, HPV regardless of Pap result SEE RESULT S BELOW CASE REPOR T: Cytol ogy Gynec ologi davey Repor t Case: [id number] Autho husam frankel Provi ruiz: Natasha Barrios, EXTENSION SERVICE AGENT Colle cted: 01/19 1632 Order ing Locat [...] bonnie d, as mendoza densoned. Not Available [facility] (Lab) [address] [facility], [place], [address], 01/25/2023 13:22:49 01/20/20 23 01/19/2023 TRICH OMONA S VAGIN SAROJ (RRNA ) trichomonas vaginalis ribosomal RNA (rrna) Positi ve negati ve abnormal Not Available [facility] (Lab) [address] [facility], [place], [address], 01/25/2023 13:22:50 01/20/20 23 01/19/2023 CT/GC (DANIEL) , THINP REP VIAL chlamydia trachomatis, PCR Negati ve negati ve Not Available [facility] (Lab) [address] [facility], [place], [address], 01/25/2023 13:22:50 01/20/20 23 01/19/2023 CT/GC (DANIEL) , THINP REP VIAL neisseria gonorrhoeae, PCR Negati ve negati ve Not Available [facility] (Lab) [address] [facility] [facility], [place], [address], 01/25/2023 13:22:50 03/04/20 23 03/04/2023 CT/GC AND TRICH OMONA S VAGIN SAROJ (RRNA ), URINE chlamydia trachomatis, PCR Negati ve negati ve Not Available [facility] (Lab) [address] [facility], [place], [address], 03/05/2023 14:21:27 03/04/20 23 03/04/2023 CT/GC AND TRICH OMONA S VAGIN SAROJ (RRNA ), URINE neisseria gonorrhoeae, PCR Negati ve negati ve Not Available [facility] (Lab) [address] [facility], [place], [address], 03/05/2023 14:21:27 03/04/20 23 03/04/2023 CT/GC AND TRICH OMONA S VAGIN SAROJ (RRNA ), URINE trichomonas vaginalis ribosomal RNA (rrna) Negati ve negati ve Not Available [facility] (Lab) [address] [facility], [place], [address], 03/05/2023 14:21:27 02/14/20 24 02/14/2024 CMP(C OMPRE HENSI VE METAB OLIC PANEL ) sodium 138 mmol/ L 133-14 6 Not Available [facility] (Lab) [address] [facility], [place], [address], 02/15/2024 21:42:53 02/14/20 24 02/14/2024 CMP(C OMPRE HENSI VE METAB OLIC PANEL ) potassium 4.0 mmol/ L 3.5-5. 1 Not Available [facility] (Lab) [address] [facility], [place], [address], 02/15/2024 21:42:53 02/14/20 24 02/14/2024 CMP(C OMPRE HENSI VE METAB OLIC PANEL ) chloride 106 mmol/ L 98-107 Not Available [facility] (Lab) [address] [facility], [place], [address], 02/15/2024 21:42:53 02/14/20 24 02/14/2024 CMP(C OMPRE HENSI VE METAB OLIC PANEL ) carbon dioxide 26 mmol/ L 21-31 Not Available [facility] (Lab) [address] [facility], [place], [address], 02/15/2024 21:42:53 02/14/20 24 02/14/2024 CMP(C OMPRE HENSI VE METAB OLIC PANEL ) anion gap 6 mmol/ L 4-13 Not Available [facility] (Lab) [address] [facility], [place], [address], 02/15/2024 21:42:53 02/14/20 24 02/14/2024 CMP(C OMPRE HENSI VE METAB OLIC PANEL ) blood urea nitrogen 11 mg/dL 7-25 Not Available [facility] (Lab) [address] [facility], [place], [address], 02/15/2024 21:42:53 02/14/20 24 02/14/2024 CMP(C OMPRE HENSI VE METAB OLIC PANEL ) creatinine 0.83 mg/dL 0.60-1 .30 Not Available [facility] (Lab) [address] [facility], [place], [address], 02/15/2024 21:42:53 02/14/20 24 02/14/2024 CMP(C OMPRE HENSI VE METAB OLIC PANEL ) egfrcr (CKD-epi 2020) >90 mL/mi n/1.7 3_m2 >=60 Not Available [facility] (Lab) [address] [facility], [place], [address], 02/15/2024 21:42:53 02/14/20 24 02/14/2024 CMP(C OMPRE HENSI VE METAB OLIC PANEL ) calcium 8.6 mg/dL 8.3-10 .5 Not Available [facility] (Lab) [address] [facility], [place], [address], 02/15/2024 21:42:53 02/14/20 24 02/14/2024 CMP(C OMPRE HENSI VE METAB OLIC PANEL ) glucose 91 mg/dL 70-100 Not Available [facility] (Lab) [address] [facility] [facility], [place], [address], 02/15/2024 21:42:53 02/14/20 24 02/14/2024 CMP(C OMPRE HENSI VE METAB OLIC PANEL ) protein, total 6.5 g/dL 6.4-8. 3 Not Available [facility] (Lab) [address] [facility] [facility], [place], [address], 02/15/2024 21:42:53 02/14/20 24 02/14/2024 CMP(C OMPRE HENSI VE METAB OLIC PANEL ) albumin 4.0 g/dL 3.5-5. 0 Not Available [facility] (Lab) [address] [facility] [facility], [place], [address], 02/15/2024 21:42:53 02/14/20 24 02/14/2024 CMP(C OMPRE HENSI VE METAB OLIC PANEL ) ALT 13 units /L 9-43 Not Available [facility] (Lab) [address] [facility] [facility], [place], [address], 02/15/2024 21:42:53 02/14/20 24 02/14/2024 CMP(C OMPRE HENSI VE METAB OLIC PANEL ) alkaline phosphatase 59 units /L 34-104 Not Available [facility] (Lab) [address] [facility] [facility], [place], [address], 02/15/2024 21:42:53 02/14/20 24 02/14/2024 CMP(C OMPRE HENSI VE METAB OLIC PANEL ) AST 12 units /L 13-39 low Not Available [facility] (Lab) [address] [facility] [facility], [place], [address], 02/15/2024 21:42:53 02/14/20 24 02/14/2024 CMP(C OMPRE HENSI VE METAB OLIC PANEL ) bilirubin, total 0.3 mg/dL 0.2-1. 2 Not Available [facility] (Lab) [address] [facility] [facility], [place], [address], 02/15/2024 21:42:53 02/14/20 24 02/14/2024 HEPAT ITIS B SURFA CE ANTIG EN hepatitis B surface antigen Non-re active non-re active This assay was perfo rmed using [employer] ratio n reage nts and test kits. Value s obtai chilango with other assay metho ds or kits canno t be used inter jordan eably . Not Available [facility] (Lab) [address] [facility], [place], [address], 02/15/2024 21:42:53 02/14/20 24 02/14/2024 HIV 1/2 ANTIG EN/AN TIBOD Y, REFLE X CONFI RMATI ON HIV antigen/anti body Nonrea ctive nonrea ctive HIV-1 antig en and HIV-1 /HIV- 2 antib odies were not detec sae. No labor atory evide nce of HIV infec tion. Not Available [facility] (Lab) [address] [facility], [place], [address], 02/15/2024 21:42:53 02/14/20 24 02/14/2024 HEPAT ITIS C ANTIB ISABELLA SCREE N, REFLE X TO CONFI RMATI ON hepatitis C antibody Non-re active non-re active Antib odies to HCV Not Detec sae, does not exclu de the possi bilit y of expos ure to HCV. Not Available [facility] (Lab) [address] [facility] [facility], [place], [address], 02/15/2024 21:42:54 02/14/20 24 02/14/2024 RPR SCREE N, REFLE X TITER /CONF IRMAT ION RPR screen Nonrea ctive nonrea ctive Not Available [facility] (Lab) [address] [facility] [facility], [place], [address], 02/15/2024 21:42:54 02/14/20 24 02/14/2024 HEPAT ITIS B CORE, IGM hepatitis B core IgM antibody Non-re active non-re active IgM anti- HBc not detec sae. Does not exclu de the possi bilit y of expos ure to or infec tion with HBV. Not Available [facility] (Lab) [address] [facility] [facility], [place], [address], 02/15/2024 21:42:54 02/14/20 24 02/14/2024 IMAGE GUIDE [...] as clini jumana warrtirso nted. Not Available [facility] (Lab) [address] [facility] [facility], [place], [address], 02/23/2024 10:38:00 02/14/20 24 02/14/2024 TRICH OMONA S VAGIN SAROJ (RRNA ) trichomonas vaginalis ribosomal RNA (rrna) Negati ve negati ve Not Available [facility] (Lab) [address] [facility] [facility], [place], [address], 02/23/2024 10:38:01 02/14/20 24 02/14/2024 CT/GC (DANIEL) , THINP REP VIAL chlamydia trachomatis, PCR Negati ve negati ve Not Available [facility] (Lab) [address] [facility], [place], [address], 02/23/2024 10:38:02 02/14/20 24 02/14/2024 CT/GC (DANIEL) , THINP REP VIAL neisseria gonorrhoeae, PCR Negati ve negati ve Not Available [facility] (Lab) [address] [facility] [facility], [place], [address], 02/23/2024 10:38:02 Result Notes None recorded. Problems Name Problem SNOMED Code Status Onset Date Resolution Date Notes Provider Name and Address Organization Details Recorded Time Depressi ve disorder 44799029 Completed 201605/02/2020 Depressi on NOS;Rocky rded Elsewher e: No Locat ion: [facility] S ource: [employer] Field Technician jayne: N Yahairati ce ID: 0001 Valentin lable Time: 03:15:00 PM Briana Corbin [facility] 15:54:[address] Concept Completed 201805/02/2020 Encntr for general adult medical exam w/o abnormal findings ;Recorde d Elsewher e: No Locat ion: [facility] S ource: [employer] Field Technician jayne: N Yahairati ce ID: 0001 Valentin lable Time: 11:00:[address] [facility] 15:54:45 Mass of right breast [id number] Completed 201805/02/2020 Lump in the right breast;R ecorded Elsewher e: No Locat ion: [facility] S ource: [employer] Field Technician jayne: N Yahairati ce ID: 0001 Valentin lable Time: 10:30:00 AM Briana moseley [facility] 15:54:31 Pregnanc y test positive [id number] Completed 201205/02/2020 Pregnanc y examinat ion or test, positive result;R ecorded Elsewher e: No Locat ion: [facility] S ource: [employer] Field Technician jayne: N Yahairati ce ID: 0001 Valentin lable Time: 11:30:00 AM Briana moseley [facility] 15:54:[address] Concept Completed 201605/02/2020 Encntr for talent engineer exam (general ) (routine ) w/o abn findings ;Recorde d Elsewher e: No Locat ion: [facility] S ource: [employer] Field Technician jayne: N Yahairati ce ID: 0001 Valentin lable Time: 11:00:00 AM Briana moseley, [facility] 15:54:47 Pregnanc y test negative [id number] Completed 201605/02/2020 Encounte r for pregnanc y test, result negative ;Recorde d Elsewher e: No Locat ion: [facility] S ource: [employer] Field Technician jayne: N Yahairati ce ID: 0001 Valentin lable Time: 11:45:00 AM Briana moseley, [facility] 15:54:37 Routine antenata l care Completed 201205/02/2020 Supervis ion of other normal pregnanc y;Record ed Elsewher e: No Locat ion: [facility] S ource: [employer] Field Technician jayne: N Yahairati ce ID: 0001 Valentin lable Time: 11:00:00 AM Briana moseley, [facility] 15:54:41 Speciali zed medical examinat ion Completed 201305/02/2020 Gynecolo gical Examinat ion;Rocky rded Elsewher e: No Locat ion: [facility] S ource: [employer] Field Technician jayne: N Yahairati ce ID: 0001 Valentin lable Time: 01:45:00 PM Briana moseley, [facility] 15:54:48 Known OR suspecte d abnormal ity affectin g manageme nt of mother Completed 201205/02/2020 Other known or suspecte d abnormal ity, not elsewher e classifi ed, affectin g manageme nt of mother, antepart um conditio n or complica tion;Rec orded Elsewher e: No Locat ion: [facility] S ource: [employer] Field Technician jayne: N Yahairati ce ID: 0001 Valentin lable Time: 04:49:00 PM Briana moseley [facility] 15:54:29 Primigra rayray [id number] Completed 201205/02/2020 Supervis ion of normal first pregnanc y;Record ed Elsewher e: No Locat ion: [facility] S ource: [employer] Field Technician jayne: N Yahairati ce ID: 0001 Valentin lable Time: 11:30:00 AM Briana moseley [facility] 15:54:40 Anxiety state [id number] Completed 201305/02/2020 Anxiety state, unspecif ied;Rocky rded Elsewher e: No Locat ion: [facility] S ource: [employer] Field Technician jayne: N Yahairati ce ID: 0001 Valentin lable Time: 10:30:00 [facility]54:16 Ultrason ography Completed 201205/02/2020 Antenata l screenin g for malforma tion using ultrason ics;Rocky rded Elsewher e: No Locat ion: [facility] S ource: [employer] Field Technician jayne: N Yahairati ce ID: 0001 Valentin lable Time: 11:30:00 AM Briana moseley [facility] 15:54:49 Antenata l screenin g Completed 201205/02/2020 Antenata l screenin g for malforma tion using ultrason ics;Rocky rded Elsewher e: No Locat ion: [facility] S ource: [employer] Field Technician jayne: N Practi ce ID: 0001 Valentin lable Time: 11:30:00 AM Briana moseley [facility] 15:54:15 Congenit al malforma tion [id number] Completed 201205/02/2020 Antenata l screenin g for malforma tion using ultrason ics;Rocky rded Elsewher e: No Locat ion: [facility] S ource: [employer] Field Technician jayne: N Practi ce ID: 0001 Valentin lable Time: 11:30:00 AM Briana moseley, [facility] 15:54:18 Emotiona l state finding Completed 201605/02/2020 Anxiety depressi on;Recor ded Elsewher e: No Locat ion: [facility] S ource: [employer] Field Technician jayne: N Practi ce ID: 0001 Valentin lable Time: 11:00:00 AM Briana moseley, [facility] 15:54:22 Atypical squamous cells of undeterm ined signific ance on cervical Papanico laou smear [id number] Completed 201505/02/2020 Atyp squam cell of undet signfc cyto smr crvx (ASC-US) ;Recorde d Elsewher e: No Locat ion: [facility] N Practi ce ID: 0001 Valentin lable Time: 10:30:00 AM Briana moseley, [facility] 15:54:17 Screenin g for malignan t neoplasm of cervix Completed 201205/02/2020 Screenin g for malignan t neoplasm s of the cervix;R ecorded Elsewher e: No Locat ion: [facility] S ource: [employer] Field Technician jayne: N Practi ce ID: 0001 Valentin lable Time: 11:30:00 AM Briana moseley, [facility] 15:54:43 Evaluati on finding Completed 201705/02/2020 Hematuri a, unspecif ied;Rocky rded Elsewher e: No Locat ion: [facility] S ource: [employer] Field Technician jayne: N Practi ce ID: 0001 Valentin lable Time: 10:45:00 AM Briana moseley, [facility] 1 15:54:23 Finding by site Completed 201605/02/2020 Dermatit is, unspecif ied;Rocky rded Elsewher e: No Locat ion: [facility] S ource: [employer] Field Technician jayne: N Practi ce ID: 0001 Valentin lable Time: 11:30:00 AM Briana moseley [facility] 1 15:54:25 Adult health examinat ion Completed 201405/02/2020 ROUTINE MEDICAL EXAM;Rec orded Elsewher e: No Locat ion: [facility] S ource: [employer] Field Technician jayne: N Practi ce ID: 0001 Valentin lable Time: 10:00:00 AM Briana moseley [facility] 15:54:12 Amenorrh ea [id number] Completed 201205/02/2020 Absence of menstrua tion;Rec orded Elsewher e: No Locat ion: [facility] S ource: [employer] Field Technician jayne: N Practi ce ID: 0001 Valentin lable Time: 11:30:00 AM Briana moseley [facility] 15:54:13 Finding of pattern of menstrua l cycle [id number] Completed 201505/02/2020 Irregula r interval between menstrua l bleeding ;Recorde d Elsewher e: No Locat ion: [facility] S ource: [employer] Field Technician jayne: N Practi ce ID: 0001 Valentin lable Time: 01:30:00 PM Briana moseley [facility] 15:54:26 Acute vaginiti s [id number] Completed 201705/02/2020 Acute vulvovag initis;R ecorded Elsewher e: No Locat ion: [facility] S ource: [employer] Field Technician jayne: N Practi ce ID: 0001 Valentin lable Time: 10:45:00 AM Briana moseley, [facility] 15:54:11 Poor growth affectin g manageme nt [id number] Completed 201205/02/2020 Poor growth, affectin g manageme nt of mother, antepart um conditio n or complica tion;Rec orded Elsewher e: No [facility]: [employer] Field Technician jayne: Radha Nieto ce ID: 0001 Valentin lable Time: 02:45:00 PM Briana moseley, [facility] 15:54:34 Postpart um care Completed 201205/02/2020 Post Followup ;Recorde d Elsewher e: No Locat ion: [facility] S ource: [employer] Field Technician jayne: Radha Nieto ce ID: 0001 Valentin lable Time: 02:00:00 PM Briana moseley, [facility] 15:54:36 Oral contrace ptive prescrib ed Completed 201305/02/2020 Counseli ng and prescrip tion for oral contrace ptive;Re corded Elsewher e: No Locat ion: [facility] S ource: [employer] Field Technician jayne: Radha Nieto ce ID: 0001 Valentin lable Time: 10:30:00 AM Briana moseley, [facility] 15:54:33 Increase d frequenc y of urinatio n [id number] Completed 201505/02/2020 Frequenc y of micturit ion;Rocky rded Elsewher e: No Locat ion: [facility] S ource: [employer] Field Technician jayne: Radha Nieto ce ID: 0001 Valentin lable Time: 03:30:00 PM Briana moseley, [facility] 15:54:28 Delivery normal [id number] Completed 201205/02/2020 Normal delivery ;Practic e ID: [address] [facility] 15:54:19 Single live from issao radha engel y [id number] Completed 201205/02/2020 Mother with single liveborn ;Practic e ID: [address] [facility] 15:54:44 Congenit al heart disease [id number] Completed 202007/28/2021 [facility] 2 14:26:23 Problem Notes None recorded. Procedures Surgical History Date Name Laterality Status Provider Name and Address Organization Details Recorded Time 02/14/20 24 Date of Last Pap Smear completed [facility] 02/14/2024 12:02:24 11/12/19 19 Date of Last Mammogram completed [facility] 10/09/2020 12:59:12 06/09/19 17 Colposcopy completed Briana [facility] 05/02/2020 17:17:01 03/29/19 09 termination of completed [facility] 02/14/2024 12:03:57 Imaging Results None recorded. Procedure Notes None recorded. Medical Equipment None Reported. Allergies Allergen ID Allergen Name Allergen Category Reaction Reaction Severity Criticality Documentation Date Start Date Code Code System Note Provider Name and Address Organization Details Recorded Time 62404 Substance with sulfonami de structure and antibacte rial mechanism of action (substanc e) medicatio n Not available Not available Not available 05/03/2020 [address] [facility] 12:58:00 Medications Name Sig Start Date Stop Date Status Note LastModified by Organization Details LastModified Time quetiapin e 25 mg tablet TAKE 1 TABLET BY MOUTH EVERY DAY AT BEDTIME active Not Available Not Available No t Available cyclobenz aprine 10 mg tablet TAKE 1/2 TO 1 TABLET BY MOUTH THREE TIMES DAILY NEEDED FOR MUSCLE SPASM 01/19 completed Not Available Not Available Not Available amoxicill in 500 mg capsule take 1 capsule (500MG) by oral route 3 times every day for 10 days 08/24 completed Prescrib ed Elsewher e: No [facility] By: kenneth Worthyt er DateTime : 08/16/19 13 08:49:33 AM [...] ed Elsewher e: No Locat ion: [facility] odify By: héctor Maravilla nter DateTime : 04/30/19 17 09:47:10 AM Not Available Not Available Not Available fluconazo le 150 mg tablet TAKE 1 TABLET BY MOUTH FOR 1 DAY active Not Available Not Available No t Available hydrocodo ne 5 mg-acetam inophen 325 mg tablet TAKE 1 TABLET BY MOUTH EVERY 6 HOURS NEEDED FOR PAIN active Not Available Not Available No t Available tretinoin 0.025 % topical cream APPLY TOPICALL Y TO THE AFFECTED AREA EVERY DAY AT BEDTIME active Not Available Not Available No t Available prednison e 20 mg tablet TAKE [...] ed Elsewher e: No Locat ion: [facility] odify By: marvin hills DateTime : 10/07/19 16 11:48:31 AM Not Available Not Available Not Available Macrobid 100 mg capsule take 1 capsule (100MG) by oral route every 12 hours with food 06/05 completed Prescrib ed Elsewher e: No Locat ion: [facility] odify By: tato barron DateTime : 05/28/19 13 02:13:47 PM Not [...] ed Elsewher e: No Locat ion: [facility] odify By: cornelio leroyuntbeatrice DateTime : 10/08/19 16 09:25:26 AM Not Available Not Available Not Available lorazepam 0.5 mg tablet TAKE 1 TABLET BY MOUTH THREE TIMES DAILY NEEDED 07/29 completed Not Available Not Available Not Available Zoloft 50 mg tablet take 1 tablet by oral route every day 04/14 completed Prescrib ed Elsewher e: No Locat ion: [facility] odify By: héctor Maravilla nter DateTime : 04/27/19 17 03:15:00 PM Not Available Not Available Not Available cephalexi n 500 mg capsule TAKE 1 CAPSULE BY MOUTH EVERY 8 HOURS active Not Available Not Available No t Available Cipro 500 mg tablet take 1 tablet by oral route every 12 hours 04/14 completed Prescrib ed Elsewher e: No [facility] By: héctor Maravilla nter DateTime : 11/10/19 17 11:30:00 AM Not Available Not Available Not Available fluoxetin e 10 mg capsule TAKE 1 CAPSULE BY MOUTH EVERY DAY ALONG WITH 20MG CAPSULE active Not Available Not Available No t Available Tylenol 325 mg tablet take 1 tablet by oral route every 4 hours as needed 03/19 completed Prescrib ed Elsewher e: Yes Loca tion: [facility] odify By: kj Baer ncounter DateTime : 05/03/19 13 11:30:00 AM Not Available Not Available Not Available Vitamin D2 1,250 mcg (50,000 unit) capsule take 1 capsule (64725NB ITS) by oral route every week 05/30 completed Prescrib ed Elsewher e: No [facility]at [facility] odify By: chaya hills DateTime : 06/11/19 13 02:49:38 PM Not Available Not Available Not Available Zoloft 100 mg tablet take 1 tablet by oral route every day 04/27 completed Prescrib ed Elsewher e: No Locat ion: [facility] odify By: héctor Maravilla nter DateTime : 08/06/19 16 10:30:00 AM Not Available Not Available Not Available norethind jhonathan (contrace ptive) 0.35 mg tablet TAKE 1 TABLET BY MOUTH EVERY DAY active Not Available Not Available No t Available fluoxetin e 20 mg capsule TAKE 1 CAPSULE BY MOUTH DAILY active Not Available Not Available No t [...] ed Elsewher e: No Locat ion: [facility] odify By: héctor Maravilla nter DateTime : 07/29/19 16 08:09:21 AM Not Available Not Available Not Available loratadin e 10 mg tablet TAKE 1 TABLET BY MOUTH DAILY 02/12 completed Not Available Not Available Not Available buspirone 15 mg tablet take 1 tablet by oral route 2 times every day 07/29 completed Prescrib ed Elsewher e: No Locat ion: [facility] odify By: héctor Maravilla nter DateTime : 11/10/19 17 11:30:00 AM Not Available Not Available Not Available NuvaRing 0.12 mg-0.015 mg/24 hr vaginal insert 1 vaginal ring by vaginal route every month leave in place for 3 weeks, remove for 1 week 05/03 completed Prescrib ed Elsewher e: No Locat ion: [facility] odify By: héctor Maravilla nter DateTime : 10/12/19 19 11:00:00 AM Not Available Not Available Not Available escitalop curtis 20 mg tablet TAKE 1 TABLET BY MOUTH DAILY 01/19 completed Not Available Not Available Not Available Lexapro 10 mg tablet take 1 tablet by oral route every day 10/11 completed Prescrib ed Elsewher e: No Locat ion: [facility] odify By: tahira Baer ncounter DateTime : 04/14/19 18 10:45:00 AM Not Available Not Available Not Available Mononessa (28) 0.25 mg-35 mcg tablet take 1 tablet by oral route every day 01/21 completed Prescrib ed Elsewher e: No Locat ion: [facility] odify By: héctor Maravilla nter DateTime : 01/22/20 16 01:30:00 PM Not Available Not Available Not Available cyclobenz aprine 5 mg tablet TAKE 1 TABLET BY MOUTH AT BEDTIME NEEDED FOR MUSCLE SPASM 01/19 completed Not Available Not Available Not Available drospiren one 3 mg-ethiny l estradiol 0.02 mg tablet TAKE 1 TABLET BY MOUTH EVERY DAY 02/13 completed Not Available Not Available Not Available quetiapin e 50 mg tablet TAKE 1 TABLET BY MOUTH EVERY DAY AT BEDTIME active Not Available Not Available No t Available 10 mg-400 mcg capsule 05/03 completed Prescrib ed Elsewher e: Yes Loca tion: [facility] odify By: wale Baer ncounter DateTime : 05/03/19 13 11:30:00 AM Not Available Not Available Not Available Triveen-D uo DHA 29 mg-1 mg-400 mg oral pack take 2 by Oral route every day for 30 days 06/01 completed Prescrib ed Elsewher e: No Locat ion: [facility] bakari By: wale Mark gerald DateTime : 05/03/19 13 11:30:00 AM Not Available Not Available Not Available BinaxNOW COVID-19 Ag Self Test kit TEST DIRECTED TODAY active Not Available Not Available No t Available Vitals Date Recorded Body height Body mass index (BMI) Body weight Systolic blood pressure Diastolic blood pressure Provider Name and Address Organization Details Last Updated DateTime 10/09/2020 172.72 cm 26.1 kg/m2 70304.45 g 128 mm[Hg] 81 mm[Hg] Jo-Ann Russell [facility] 16:51:51 Date Recorded Body height Body mass index (BMI) Body weight Provider Name and Address Organization Details Last Updated DateTime 07/29/2021 161.29 cm 27.7 kg/m2 42363.75 g Jo-Ann [facility] 07/29/2021 15:38:01 Date Recorded Systolic blood pressure Diastolic blood pressure Provider Name and Address Organization Details Last Updated DateTime 07/29/2021 122 mm[Hg] 74 mm[Hg] Aide Yip, [facility]- [address], [place], [address], [facility] 07/29/2021 15:47:12 Date Recorded Body height Body mass index (BMI) Body weight Systolic blood pressure Diastolic blood pressure Provider Name and Address Organization Details Last Updated DateTime 01/19/2023 161.29 cm 30.3 kg/m2 05171.07 g 123 mm[Hg] 82 mm[Hg] Sarahi Agrawal [facility] 14:42:19 Date Recorded Body height Body mass index (BMI) Body weight Provider Name and Address Organization Details Last Updated DateTime 03/04/2023 161.29 cm 30.7 kg/m2 46596.54 g Radha Winkler [facility] 03/04/2023 12:22:39 Date Recorded Body height Body mass index (BMI) Body weight Systolic blood pressure Diastolic blood pressure Provider Name and Address Organization Details Last Updated DateTime 02/14/2024 161.29 cm 28.1 kg/m2 62236.37 g 126 mm[Hg] 85 mm[Hg] Alondra Clinetz [facility] 12:01:50 Social History Question Answer Notes LastModified by [email or web address] ion Details LastModified Time Tobacco Smoking Status Current Some Day Smoker social smoker Sarahi Agrawal pradip, [facility] 01/19/2023 14:44:27 Are You Blind Or Do You Have Difficulty Seeing? No Information not available 10/09/2020 What Is Your Level Of Caffeine Consumption? None [email or web address] Information not available 05/03/2020 Are You Deaf [...] Yes Information not available 10/09/2020 Do You Use Sunscreen Routinely? Yes Information not available 10/09/2020 Has Tobacco Cessation Counseling Been Provided? No Information not available 05/03/2020 Do You Have Difficulty Walking Or Climbing Stairs? No Information not available 07/29/2021 Sex: Unknown Functional Status Question Answer Note LastModified by [email or web address] ion Details LastModified Time Do you use any illicit or recreational drugs? No [email or web address] Information not available 05/03/2020 Do you or have you ever used any other forms of tobacco or nicotine? No [email or web address] Information not available 05/03/2020 What is your level of alcohol consumption? None [email or web address] Information not available 05/03/2020 Are you able to walk? YESWOREST Information not available 10/09/2020 Are you able to care for yourself? Yes Information n ot available 07/29/2021 Do you have difficulty dressing or bathing? No Information not available 07/29/2021 What is your exercise level? None Information not available 05/03/2020 Mental Status Question Answer Note LastModified by Organization D etails LastModified Time Do you feel stressed (tense, restless, nervous, or anxious, or unable to sleep at night)? [id number] Information not available 10/09/2020 Family History Relationship Description Onset Age of this Age Resolved Age Notes LastModified by Organization Details LastModified Time Mother Hypertensive disorder [email or web address] Not available 2020 12:50:44 Medical History Condition [...] SNOMED-CT Code Diagnosis ICD10 Code Diagnosis Note [id number] Aide Yip [facility] [address] [address] 05/03/2020 12:50:51 05/03/2020 17:01:36 Gynecologic examination 04678398 Z01.419 Take Calcium with Vitamin D 1200mg [...] Ely No issues or quesitons. Cystic acne 65186005 L70 .0 Will have updated labs from PCP sent so we do not have to repeat CMP. Has been on these meds for >1yr very stable. [id number] Aide Yip , [facility] [address] [address] 10/09/2020 16:20:21 10/10/2020 14:15:55 Dyspareunia 03922492 N94.10 Exam [email or web address] monitorIf occurs again can [...] this patient s visit, including available hand cheese grader upon arrive, temperatur e check and being asked a series of screening questions. All staff wore face coverings during this encounter, as well as provided additional cleaning and sanitizing of all surfaces, including countertop s, pens, chairs, door handles, light switches, etc, prior to and following the patient s visit. Anxiety 20817924 F41.9 Lost PCP who is out of her network now.1-RF of lorazepam given with instructio ns to use sparingly; and also needs to est care with a new PCP to take over this medication as it is not something that is routinely prescribed here.Agree able to help with referral [id number] Aide Yip , [facility] [address] [address] 07/29/2021 15:19:39 07/29/2021 16:07:09 Gynecologic examination 24493612 Z01.419 Take Calcium with Vitamin D 1200mg [...] Screen na Routine Labs na Cystic acne 07308678 L70 .0 Will have updated labs from PCP sent so we do not have to repeat CMP. Has been on these meds for >2yr very stable. [id number] ANTHONY Nicole [place] [address] [address] 01/19/2023 14:32:17 01/19/2023 15:50:08 Gynecologic examination 73135027 Z01.419 [facility] - OCPr/b/a reviewedre fills sent x 12 [...] plan if desired. Venereal d isease screening 210816747 Z11.3 Sexually t ransmitted infectious disease 8183502 A64 Cystic acne 69462705 L70 .0 Will have updated labs from PCP sent so we do not have to repeat CMP.Has been on these meds for >3yr very stable and wishes to continuesh mark is aware of the risk/benef its of OCP given her medical hx, she is not interested in progestero ne only methods at this time [id number] ANTHONY Nicole [place] [address] [address] 03/04/2023 11:56:28 03/04/2023 12:43:34 Infection by Trichomonas 12976119 A59.9 gc/ct/tric h testing sentrecomm ended retreatmen [...] plan of care. Venereal d isease screening 939635095 Z11.3 [id number] ANTHONY Nicole [place] [address] [address] 02/14/2024 11:46:43 02/14/2024 12:54:07 Gynecologic examination 13248475 Z01.419 Z11.51 Z11.8 Z11.3 WWEpap updatedgc/ ct/trich [...] have been answered. Contracept ion care management 048642750 Z30.9 discussed progestero ne only options d/t h/o migraine with aurarx sent for POP, r/b/a reviewed Venereal d isease screening 898497420 Z11.3 Acne 51172522 L70.9 Desires to continue spironolac tone for acneyearly CMP orderedref ills sent, r/b/a reviewed Sexually t ransmitted infectious disease 5665202 A64 Cystic acne 86310261 L70 .0 Health Concerns Section Related Observation LastModified by Organization Detai ls LastModified Time None Recorded Concern Status LastModified by Organization Details LastModified Time None Recorded Advance Directives Directive None Recorded Payers Encounter Date Sequence Insurance Name Policy Number Policy Lau Covered Member ID Lau Member ID Guarantor Name 10/09/[address] [facility] ON OR AFTER 09/26/20 (MEDICAID REPLACEMENT - HMO) Pooja Khoury [id number] Pooja Khoury 07/29/[address] [facility] ON OR AFTER 09/26/20 (MEDICAID REPLACEMENT - HMO) Pooja Khoury [id number] Pooja Khoury 01/19/[address] [facility] ON OR AFTER 09/26/20 (MEDICAID REPLACEMENT - HMO) Pooja Khoury [id number] Pooja Khoury 03/04/[address] [facility] ON OR AFTER 09/26/20 (MEDICAID REPLACEMENT - HMO) Pooja Khoury [id number] Pooja Khoury 02/14/[address] [facility] ON OR AFTER 09/26/20 (MEDICAID REPLACEMENT - HMO) Pooja Khoury [id number] Pooja Khoury Notes Date Note Type Note Provider Name and Address Organization Details Recorded Time text/html DyspareuniaReported bypatient.Location:[facility] Discharge:no fishy odor; [...] who will take over her Rx's. Aide Yip [facility] [address], [place], [address], [facility] 10/09/2020 17:46:31 2 text/html Annual GYNReported [...] pap smear and high risk HPV typing Aide Yip [facility] [address], [place], [address], [facility] 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 Wants to continue with these medications hx of abnormal papslast abnormal 2011, HPV (+)last pap 07/2021, normal denies hx of DVT/PE, HTN, Stroke/CA, cancer, liver disease, or migraine with aurashe is a non-smoker ANTHONY Nicole [address], [place], [address], [facility] 01/19/2023 15:21:56 3 text/html 32yo [id number] for STI testing(+) trichomonas 01/19/2023 - completed treatment. Partner has not been treated, has been SA with condomsno vaginal symptomsneg pelvic painOCP for BC ANTHONY Nicole [address], [place], [address], [facility] 03/04/2023 12:43:21 4 text/html Annual GYNReported [...] with aura ANTHONY Nicole [address], [place], [address], [facility] 02/14/2024 12:53:35 OBGyn Episode Ob Episode Information Episode Created Date Number of Fetuses Patient Bloodtype Patient rh Status Prepregnancy Weight lbs Domestic Partner Domestic Partner Phone Father Name Field Radio Operator Status 05/03/19 21 1 CLOSED Fetus Data [...] Domestic Partner Domestic Partner Phone Father Name Field Radio Operator Status 10/10/19 21 1 CLOSED Fetus Data First Name Last Name Admitted to NICU Weight (g) Sex Living Outcome Pediatric Complications Fetus ID Race Codes Race Delivery Type , Induced [id number] García Calculation Initial García Date Initial Exam [...]
--- OUTSIDE RECORDS SUMMARY | 2024-08-15 10:56 | XMS_ITS | Clinical Summary ---
Author Organization [facility] Care Team Providers Care Levi Maker Name Role Phone Unavailable Primary Care Provider Unavailabl e Social History Tobacco Use Types Packs/Day Years Used Date Smoking Tobacco: Never Assessed Comments Unknown Sex and Gender Information Value Date Recorded Sex Assigned at Not on file Legal Sex Female 2:16 PM [employer]IN [employer] Gender Identity Not on file Sexual Orientation [...]
== END 2024-08-15 10:39 | disposition home or self-care (01) ==
PROVIDERS: PCP Nurse Practitioner Family; Visit Provider Physician Assistant Surgical
DX: S62.613D Displaced fracture of proximal phalanx of left middle finger, subsequent encounter for fracture with routine healing (principal); X58.XXXD Exposure to other specified factors, subsequent encounter
CPT/HCPCS: 73130; 73140

== ENCOUNTER 2024-08-24 13:41 | Outpatient (CLI) | payer OTHER, SELFPAY ==
--- NOTE | ~2024-08-24 | US_ITS ---
EXAM: Focused ultrasound examination of the soft tissues of the left lower back HISTORY: R22.9 - Localized swelling, mass and lump, unspecified TECHNIQUE: Sonographic evaluation of the soft tissues of the left lower back were performed assessing grayscale appearance and color Doppler flow. COMPARISON: None. FINDINGS: Sonographic evaluation of the soft tissues of the left lower back demonstrate benign fibrofatty and f ibromuscular elements without a cystic or solid lesion of concern. IMPRESSION: No sonographic abnormality is appreciated on focused ultrasound examination, as detailed above. Reviewed, dictated and finalized at location A.
--- OUTSIDE RECORDS SUMMARY | 2024-08-24 13:45 | XMS_ITS | Data Portability ---
Author Organization [facility] Address [address] [place] [address] Assessment Encounter Date Assessment Date Assessment LastModified [...] a year unless there are new symptoms. [email or web address] Not available 02/14/2024 12:01:29 Plan of Treatment Reminders Order Date Submit Date Provider Last Modified By Organization Details Last Modified Time Details Appointments None recorded. Lab hbcab (hepatitis B core Ab) igm, serum 2023 [facility] (Lab), [address], [place], [address], 21:42:54 HBsAg (hepatitis B surface Ag), serum 2023 [facility] (Lab), [address], [place], [address], 4 21:42:53 hepatitis C virus Ab, serum 2023 [facility] (Lab), [address], [place], [address], 4 21:42:54 HIV 1+2 AB + HIV 1 p24 Ag, qualitative immunoassay , serum [address] [facility] (Lab), [address], [place], [address], 4 21:42:54 RPR (rapid plasma reagin), serum [address] [facility] (Lab), [address], [place], [address], 4 21:42:54 CMP, serum or plasma [address] [facility] (Lab), [address], [place], [address], 4 21:42:53 hbcab (hepatitis B core Ab) igm, serum [address] [facility] (Lab), [address], [place], [address], 3 22:14:58 HBsAg (hepatitis B surface Ag), serum [address] [facility] (Lab), [address], [place], [address], 3 22:14:57 hepatitis C virus Ab, serum [address] [facility] (Lab), [address], [place], [address], 3 22:14:57 unlisted lab - HIV 1/2 antigen/ant ibody, reflex confirmatio n [address] [facility] (Lab), [address], [place], [address], 3 22:14:57 RPR (rapid plasma reagin), serum [address] [facility] (Lab), [address], [place], [address], 3 22:14:58 Referral primary care provider referral 2020 021 ROMI Not available 2 05:01:10 Procedures None recorded. Surgeries None recorded. Imaging None recorded. Medication Orders spironolact one 25 mg tablet 2023 024 [facility][id number], [address], [place], [id number], 4 12:53:15 norethindro ne (contracept ramiro) 0.35 mg tablet 2023 024 [facility] #09758, [address], [place], [id number], 4 12:52:07 metronidazo le 500 mg tablet 2022 023 [facility] #92611, [address], [place], [id number], 3 12:43:07 spironolact one 25 mg tablet 2022 023 [facility] #81506, [address], [place], [id number], 3 15:20:52 drospirenon e 3 mg-ethinyl estradiol 0.02 mg tablet 2022 023 [facility] #27420, [address], [place], [id number], 4 12:52:12 drospirenon e 3 mg-ethinyl estradiol 0.02 mg tablet 2021 022 [email or web address] [facility] #15425, [address], [place], [id number], 4 12:52:12 spironolact one 25 mg tablet 2021 022 ROMI [facility] #11732, [address], [place], [id number], 2 15:54:01 Patient TargetsNo targets recorded. Patient InstructionsNo instructions recorded. 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 Not Available [facility] (Lab) [address], [place], [address], 08/06/2021 11:01:15 07/30/19 22 07/29/2021 TRICH OMONA S VAGIN SAROJ (RRNA ) trichomonas vaginalis ribosomal RNA (rrna) Negati ve negati ve Not Available [facility] (Lab) [address], [place], [address], 08/06/2021 11:01:16 07/30/19 22 07/29/2021 CT/GC (DANIEL) , THINP REP VIAL chlamydia trachomatis, PCR Negati ve negati ve Not Available [facility] (Lab) [address], [place], [address], 08/06/2021 11:01:16 07/30/19 22 07/29/2021 CT/GC (DANIEL) , THINP REP VIAL neisseria gonorrhoeae, PCR Negati ve negati ve Not Available [facility] (Lab) [address], [place], [address], 08/06/2021 11:01:16 01/20/20 23 01/19/2023 HEPAT ITIS B SURFA CE ANTIG EN hepatitis B surface antigen Non-re active non-re active This assay was perfo rmed using [employer] ratio n reage nts and test kits. Value s obtai chilango with other assay metho ds or kits canno t be used inter jordan eably . Not Available [facility] (Lab) [address], [place], [address], 01/20/2023 22:14:57 01/20/20 23 01/19/2023 HIV 1/2 ANTIG EN/AN TIBOD Y, REFLE X CONFI RMATI ON HIV antigen/anti body Nonrea ctive nonrea ctive HIV-1 antig en and HIV-1 /HIV- 2 antib odies were not detec sae. No labor atory evide nce of HIV infec tion. Not Available [facility] (Lab) [address], [place], [address], 01/20/2023 22:14:57 01/20/20 23 01/19/2023 HEPAT ITIS C ANTIB ISABELLA SCREE N, REFLE X TO CONFI RMATI ON hepatitis C antibody Non-re active non-re active Antib odies to HCV Not Detec sae, does not exclu de the possi bilit y of expos ure to HCV. Not Available [facility] (Lab) [address], [place], [address], 01/20/2023 22:14:57 01/20/20 23 01/19/2023 RPR SCREE N/REF RONY TITER /FTA RPR screen Nonrea ctive nonrea ctive Not Available [facility] (Lab) [address] [place], [address], 01/20/2023 22:14:58 01/20/20 23 01/19/2023 HEPAT ITIS B CORE, IGM hepatitis B core IgM antibody Negati ve negati ve Not Available [facility] (Lab) [address] [place], [address], 01/20/2023 22:14:58 01/20/20 23 01/19/2023 IMAGE GUIDE D PAP AND HPV REGAR DLESS image guided Pap, HPV regardless of Pap result SEE RESULT S BELOW CASE REPOR T: Cytol ogy Gynec ologi davey Repor t Case: [id number] Autho husam frankel Provi riuz: Natasha Barrios, [employer] Colle cted: 01/19 1632 Order ing Locat [...] bonnie d, as mendoza densoned. Not Available [facility] (Lab) [address], [place], [address], 01/25/2023 13:22:49 01/20/20 23 01/19/2023 TRICH OMONA S VAGIN SAROJ (RRNA ) trichomonas vaginalis ribosomal RNA (rrna) Positi ve negati ve abnormal Not Available [facility] (Lab) [address], [place], [address], 01/25/2023 13:22:50 01/20/20 23 01/19/2023 CT/GC (DANIEL) , THINP REP VIAL chlamydia trachomatis, PCR Negati ve negati ve Not Available [facility] (Lab) [address], [place], [address], 01/25/2023 13:22:50 01/20/20 23 01/19/2023 CT/GC (DANIEL) , THINP REP VIAL neisseria gonorrhoeae, PCR Negati ve negati ve Not Available [facility] (Lab) [address], [place], [address], 01/25/2023 13:22:50 03/04/20 23 03/04/2023 CT/GC AND TRICH OMONA S VAGIN SAROJ (RRNA ), URINE chlamydia trachomatis, PCR Negati ve negati ve Not Available [facility] (Lab) [address], [place], [address], 03/05/2023 14:21:27 03/04/20 23 03/04/2023 CT/GC AND TRICH OMONA S VAGIN SAROJ (RRNA ), URINE neisseria gonorrhoeae, PCR Negati ve negati ve Not Available [facility] (Lab) [address], [place], [address], 03/05/2023 14:21:27 03/04/20 23 03/04/2023 CT/GC AND TRICH OMONA S VAGIN SAROJ (RRNA ), URINE trichomonas vaginalis ribosomal RNA (rrna) Negati ve negati ve Not Available [facility] (Lab) [address], [place], [address], 03/05/2023 14:21:27 02/14/20 24 02/14/2024 CMP(C OMPRE HENSI VE METAB OLIC PANEL ) sodium 138 mmol/ L 133-14 6 Not Available [facility] (Lab) [address], [place], [address], 02/15/2024 21:42:53 02/14/20 24 02/14/2024 CMP(C OMPRE HENSI VE METAB OLIC PANEL ) potassium 4.0 mmol/ L 3.5-5. 1 Not Available [facility] (Lab) [address], [place], [address], 02/15/2024 21:42:53 02/14/20 24 02/14/2024 CMP(C OMPRE HENSI VE METAB OLIC PANEL ) chloride 106 mmol/ L 98-107 Not Available [facility] (Lab) [address], [place], [address], 02/15/2024 21:42:53 02/14/20 24 02/14/2024 CMP(C OMPRE HENSI VE METAB OLIC PANEL ) carbon dioxide 26 mmol/ L 21-31 Not Available [facility] (Lab) [address], [place], [address], 02/15/2024 21:42:53 02/14/20 24 02/14/2024 CMP(C OMPRE HENSI VE METAB OLIC PANEL ) anion gap 6 mmol/ L 4-13 Not Available [facility] (Lab) [address], [place], [address], 02/15/2024 21:42:53 02/14/20 24 02/14/2024 CMP(C OMPRE HENSI VE METAB OLIC PANEL ) blood urea nitrogen 11 mg/dL 7-25 Not Available [facility] (Lab) [address], [place], [address], 02/15/2024 21:42:53 02/14/20 24 02/14/2024 CMP(C OMPRE HENSI VE METAB OLIC PANEL ) creatinine 0.83 mg/dL 0.60-1 .30 Not Available [facility] (Lab) [address], [place], [address], 02/15/2024 21:42:53 02/14/20 24 02/14/2024 CMP(C OMPRE HENSI VE METAB OLIC PANEL ) egfrcr (CKD-epi 2020) >90 mL/mi n/1.7 3_m2 >=60 Not Available [facility] (Lab) [address], [place], [address], 02/15/2024 21:42:53 02/14/20 24 02/14/2024 CMP(C OMPRE HENSI VE METAB OLIC PANEL ) calcium 8.6 mg/dL 8.3-10 .5 Not Available [facility] (Lab) [address], [place], [address], 02/15/2024 21:42:53 02/14/20 24 02/14/2024 CMP(C OMPRE HENSI VE METAB OLIC PANEL ) glucose 91 mg/dL 70-100 Not Available [facility] (Lab) [address], [place], [address], 02/15/2024 21:42:53 02/14/20 24 02/14/2024 CMP(C OMPRE HENSI VE METAB OLIC PANEL ) protein, total 6.5 g/dL 6.4-8. 3 Not Available [facility] (Lab) [address], [place], [address], 02/15/2024 21:42:53 02/14/20 24 02/14/2024 CMP(C OMPRE HENSI VE METAB OLIC PANEL ) albumin 4.0 g/dL 3.5-5. 0 Not Available [facility] (Lab) [address], [place], [address], 02/15/2024 21:42:53 02/14/20 24 02/14/2024 CMP(C OMPRE HENSI VE METAB OLIC PANEL ) ALT 13 units /L 9-43 Not Available [facility] (Lab) [address], [place], [address], 02/15/2024 21:42:53 02/14/20 24 02/14/2024 CMP(C OMPRE HENSI VE METAB OLIC PANEL ) alkaline phosphatase 59 units /L 34-104 Not Available [facility] (Lab) [address], [place], [address], 02/15/2024 21:42:53 02/14/20 24 02/14/2024 CMP(C OMPRE HENSI VE METAB OLIC PANEL ) AST 12 units /L 13-39 low Not Available [facility] (Lab) [address], [place], [address], 02/15/2024 21:42:53 02/14/20 24 02/14/2024 CMP(C OMPRE HENSI VE METAB OLIC PANEL ) bilirubin, total 0.3 mg/dL 0.2-1. 2 Not Available [facility] (Lab) [address], [place], [address], 02/15/2024 21:42:53 02/14/20 24 02/14/2024 HEPAT ITIS B SURFA CE ANTIG EN hepatitis B surface antigen Non-re active non-re active This assay was perfo rmed using [employer] n reage nts and test kits. Value s obtai chilango with other assay metho ds or kits canno t be used inter jordan eably . Not Available [facility] (Lab) [address], [place], [address], 02/15/2024 21:42:53 02/14/20 24 02/14/2024 HIV 1/2 ANTIG EN/AN TIBOD Y, REFLE X CONFI RMATI ON HIV antigen/anti body Nonrea ctive nonrea ctive HIV-1 antig en and HIV-1 /HIV- 2 antib odies were not detec sae. No labor atory evide nce of HIV infec tion. Not Available [facility] (Lab) [address], [place], [address], 02/15/2024 21:42:53 02/14/20 24 02/14/2024 HEPAT ITIS C ANTIB ISABELLA SCREE N, REFLE X TO CONFI RMATI ON hepatitis C antibody Non-re active non-re active Antib odies to HCV Not Detec sae, does not exclu de the possi bilit y of expos ure to HCV. Not Available [facility] (Lab) [address], [place], [address], 02/15/2024 21:42:54 02/14/20 24 02/14/2024 RPR SCREE N, REFLE X TITER /CONF IRMAT ION RPR screen Nonrea ctive nonrea ctive Not Available [facility] (Lab) [address], [place], [address], 02/15/2024 21:42:54 02/14/20 24 02/14/2024 HEPAT ITIS B CORE, IGM hepatitis B core IgM antibody Non-re active non-re active IgM anti- HBc not detec sae. Does not exclu de the possi bilit y of expos ure to or infec tion with HBV. Not Available [facility] (Lab) [address], [place], [address], 02/15/2024 21:42:54 02/14/20 24 02/14/2024 IMAGE GUIDE [...] epith elial Wilfrid garcia or An greene ([facility]) . Funga l organ isms morph ologi [...] as clini jumana warrtirso nted. Not Available [facility] (Lab) [address], [place], [address], 02/23/2024 10:38:00 02/14/20 24 02/14/2024 TRICH OMONA S VAGIN SAROJ (RRNA ) trichomonas vaginalis ribosomal RNA (rrna) Negati ve negati ve Not Available [facility] (Lab) [address], [place], [address], 02/23/2024 10:38:01 02/14/20 24 02/14/2024 CT/GC (DANIEL) , THINP REP VIAL chlamydia trachomatis, PCR Negati ve negati ve Not Available [facility] (Lab) [address], [place], [address], 02/23/2024 10:38:02 02/14/20 24 02/14/2024 CT/GC (DANIEL) , THINP REP VIAL neisseria gonorrhoeae, PCR Negati ve negati ve Not Available [facility] (Lab) [address], [place], [address], 02/23/2024 10:38:02 Result Notes None recorded. Problems Name Problem SNOMED Code Status Onset Date Resolution Date Notes Provider Name and Address Organization Details Recorded Time Depressi ve disorder 76159162 Completed 201605/02/2020 Depressi on NOS;Rocky rded Elsewher e: No Locat ion: [facility] S ource: E[employer] Health Safety Instructor jayne: N Yahairati ce ID: 0001 Valentin lable Time: 03:15:00 PM Briana Corbin [facility] 15:54:[address] Concept Completed 201805/02/2020 Encntr for general adult medical exam w/o abnormal findings ;Recorde d Elsewher e: No Locat ion: [facility] S ource: E[employer] Health Safety Instructor jayne: N Yahairati ce ID: 0001 Valentin lable Time: 11:00:00 AM Briana Corbin [facility] 15:54:45 Mass of right breast [id number] Completed 201805/02/2020 Lump in the right breast;R ecorded Elsewher e: No Locat ion: [facility] S ource: E[employer] Health Safety Instructor jayne: N Yahairati ce ID: 0001 Valentin lable Time: 10:30:00 AM Briana moseley [facility] 15:54:31 Pregnanc y test positive [id number] Completed 201205/02/2020 Pregnanc y examinat ion or test, positive result;R ecorded Elsewher e: No Locat ion: [facility] S ource: [employer] Health Safety Instructor jayne: N Yahairati ce ID: 0001 Valentin lable Time: 11:30:00 AM Briana moseley [facility] 15:54:[address] Concept Completed 201605/02/2020 Encntr for wire stretcher exam (general ) (routine ) w/o abn findings ;Recorde d Elsewher e: No Locat ion: [facility] S ource: [employer] Health Safety Instructor jayne: N Yahairati ce ID: 0001 Valentin lable Time: 11:00:00 AM Briana moseley, [facility] 15:54:47 Pregnanc y test negative [id number] Completed 201605/02/2020 Encounte r for pregnanc y test, result negative ;Recorde d Elsewher e: No Locat ion: [facility] S ource: EHR Health Safety Instructor jayne: N Yahairati ce ID: 0001 Valentin lable Time: 11:45:00 AM Briana moseley, [facility] 15:54:37 Routine antenata l care Completed 201205/02/2020 Supervis ion of other normal pregnanc y;Record ed Elsewher e: No Locat ion: [facility] S ource: [employer] Health Safety Instructor jayne: N Yahairati ce ID: 0001 Valentin lable Time: 11:00:00 AM Briana moseley, [facility] 15:54:41 Speciali zed medical examinat ion Completed 201305/02/2020 Gynecolo gical Examinat ion;Rocky rded Elsewher e: No Locat ion: [facility] S ource: [employer] Health Safety Instructor jayne: N Yahairati ce ID: 0001 Valentin lable Time: 01:45:00 PM Briana moseley, [facility] 15:54:48 Known OR suspecte d abnormal ity affectin g manageme nt of mother Completed 201205/02/2020 Other known or suspecte d abnormal ity, not elsewher e classifi ed, affectin g manageme nt of mother, antepart um conditio n or complica tion;Rec orded Elsewher e: No Locat ion: [facility] S ource: E[employer] Health Safety Instructor jayne: N Yahairati ce ID: 0001 Valentin lable Time: 04:49:00 PM Briana moseley [facility] 15:54:29 Primigra rayray [id number] Completed 201205/02/2020 Supervis ion of normal first pregnanc y;Record ed Elsewher e: No Locat ion: [facility] S ource: E[employer] Health Safety Instructor jayne: N Yahairati ce ID: 0001 Valentin lable Time: 11:30:00 AM Briana moseley [facility] 15:54:40 Anxiety state [id number] Completed 201305/02/2020 Anxiety state, unspecif ied;Rocky rded Elsewher e: No Locat ion: [facility] S ource: E[employer] Health Safety Instructor jayne: N Yahairati ce ID: 0001 Valentin lable Time: 10:30:00 AM [facility]:54:16 Ultrason ography Completed 201205/02/2020 Antenata l screenin g for malforma tion using ultrason ics;Rocky rded Elsewher e: No Locat ion: [facility] S ource: E[employer] Health Safety Instructor jayne: N Yahairati ce ID: 0001 Valentin lable Time: 11:30:00 AM Briana moseley [facility] 15:54:49 Antenata l screenin g Completed 201205/02/2020 Antenata l screenin g for malforma tion using ultrason ics;Rocky rded Elsewher e: No Locat ion: [facility] S ource: EHR Health Safety Instructor jayne: N Practi ce ID: 0001 Valentin lable Time: 11:30:00 AM Briana moseley [facility] 15:54:15 Congenit al malforma tion [id number] Completed 201205/02/2020 Antenata l screenin g for malforma tion using ultrason ics;Rocky rded Elsewher e: No Locat ion: [facility] S ource: EHR Health Safety Instructor jayne: N Practi ce ID: 0001 Valentin lable Time: 11:30:00 AM Briana moseley, [facility] 15:54:18 Emotiona l state finding Completed 201605/02/2020 Anxiety depressi on;Recor ded Elsewher e: No Locat ion: [facility] S ource: E[employer] Health Safety Instructor jayne: N Practi ce ID: 0001 Valentin lable Time: 11:00:00 AM Briana moseley, [facility] 15:54:22 Atypical squamous cells of undeterm ined signific ance on cervical Papanico laou smear [id number] Completed 201505/02/2020 Atyp squam cell of undet signfc cyto smr crvx (ASC-US) ;Recorde d Elsewher e: No Locat ion: [facility] N Practi ce ID: 0001 Valentin lable Time: 10:30:00 AM Briana moseley, [facility] 15:54:17 Screenin g for malignan t neoplasm of cervix Completed 201205/02/2020 Screenin g for malignan t neoplasm s of the cervix;R ecorded Elsewher e: No Locat ion: [facility] S ource: EHR Health Safety Instructor jayne: N Practi ce ID: 0001 Valentin lable Time: 11:30:00 AM Briana moseley, [facility] 15:54:43 Evaluati on finding Completed 201705/02/2020 Hematuri a, unspecif ied;Rocky rded Elsewher e: No Locat ion: [facility] S ource: E[employer] Health Safety Instructor jayne: N Practi ce ID: 0001 Valentin lable Time: 10:45:00 AM Briana moseley, [facility] 1 15:54:23 Finding by site Completed 201605/02/2020 Dermatit is, unspecif ied;Rocky rded Elsewher e: No Locat ion: [facility] S ource: EHR Health Safety Instructor jayne: N Practi ce ID: 0001 Valetnin lable Time: 11:30:00 AM Briana moseley [facility] 1 15:54:25 Adult health examinat ion Completed 201405/02/2020 ROUTINE MEDICAL EXAM;Rec orded Elsewher e: No Locat ion: [facility] S ource: E[employer] Health Safety Instructor jayne: N Practi ce ID: 0001 Valentin lable Time: 10:00:00 AM Briana moseley [facility] 15:54:12 Amenorrh ea [id number] Completed 201205/02/2020 Absence of menstrua tion;Rec orded Elsewher e: No Locat ion: [facility] S ource: E[employer] Health Safety Instructor jayne: N Practi ce ID: 0001 Valentin lable Time: 11:30:00 AM Briana moseley [facility] 15:54:13 Finding of pattern of menstrua l cycle [id number] Completed 201505/02/2020 Irregula r interval between menstrua l bleeding ;Recorde d Elsewher e: No Locat ion: [facility] S ource: [employer] Health Safety Instructor jayne: N Practi ce ID: 0001 Valentin lable Time: 01:30:00 PM Briana moseley [facility] 15:54:26 Acute vaginiti s [id number] Completed 201705/02/2020 Acute vulvovag initis;R ecorded Elsewher e: No Locat ion: [facility] S ource: E[employer] Health Safety Instructor jayne: N Practi ce ID: 0001 Valentin lable Time: 10:45:00 AM Briana moseley, [facility] 15:54:11 Poor growth affectin g manageme nt [id number] Completed 201205/02/2020 Poor growth, affectin g manageme nt of mother, antepart um conditio n or complica tion;Rec orded Elsewher e: No [facility] EHR Health Safety Instructor jayne: Radha Nieto ce ID: 0001 Valentin lable Time: 02:45:00 PM Briana moseley, [facility] 15:54:34 Postpart um care Completed 201205/02/2020 Post Followup ;Recorde d Elsewher e: No Locat ion: [facility] S ource: E[employer] Health Safety Instructor jayne: Radha Nieto ce ID: 0001 Valentin lable Time: 02:00:00 PM Briana moseley, [facility] 15:54:36 Oral contrace ptive prescrib ed Completed 201305/02/2020 Counseli ng and prescrip tion for oral contrace ptive;Re corded Elsewher e: No Locat ion: [facility] S ource: E[employer] Health Safety Instructor jayne: Radha Nieto ce ID: 0001 Valentin lable Time: 10:30:00 AM Briana moseley, [facility] 15:54:33 Increase d frequenc y of urinatio n [id number] Completed 201505/02/2020 Frequenc y of micturit ion;Rocky rded Elsewher e: No Locat ion: [facility] S ource: E[employer] Health Safety Instructor jayne: Radha Nieto ce ID: 0001 Valentin lable Time: 03:30:00 PM Briana moseley, [facility] 15:54:28 Delivery normal [id number] Completed 201205/02/2020 Normal delivery ;Practic e ID: 0001 Briana Corbin [facility] 15:54:19 Single live from issao radha engel y [id number] Completed 201205/02/2020 Mother with single liveborn ;Practic e ID: 0001 Brianafredy Corbin [facility] 15:54:44 Congenit al heart disease [id number] Completed 202007/28/2021 Jo-Ann [facility] 2 14:26:23 Problem Notes None recorded. Procedures Surgical History Date Name Laterality Status Provider Name and Address Organization Details Recorded Time 02/14/20 24 Date of Last Pap Smear completed [facility] 02/14/2024 12:02:24 11/12/19 19 Date of Last Mammogram completed [facility] 10/09/2020 12:59:12 06/09/19 17 Colposcopy completed Briana [facility] 05/02/2020 17:17:01 03/29/19 09 termination of completed [facility] 02/14/2024 12:03:57 Imaging Results None recorded. Procedure Notes None recorded. Medical Equipment None Reported. Allergies Allergen ID Allergen Name Allergen Category Reaction Reaction Severity Criticality Documentation Date Start Date Code Code System Note Provider Name and Address Organization Details Recorded Time 66921 Substance with sulfonami de structure and antibacte rial mechanism of action (substanc e) medicatio n Not available Not available Not available 05/03/2020 25308 8003 SNOMED Briana Corbin [facility] 12:58:00 Medications Name Sig [...] Prescrib ed Elsewher e: No [facility] By: kenneth Worthyt er DateTime : [...] ed Elsewher e: No Locat ion: [facility] odify By: héctor Maravilla nter DateTime [...] ed Elsewher e: No Locat ion: [facility] odify By: marvin hills DateTime : 10/07/19 16 11:48:31 AM Not Available Not Available Not Available Macrobid 100 mg capsule take 1 capsule (100MG) by oral route every 12 hours with food 06/05 completed Prescrib ed Elsewher e: No Locat ion: [facility] odify By: tato barron DateTime : 05/28/19 [...] Prescrib ed Elsewher e: No Locat ion: [facility] odify By: cornelio leroyuntbeatrice DateTime : 10/08/19 16 09:25:26 AM Not Available Not Available Not Available lorazepam 0.5 mg tablet TAKE 1 TABLET BY MOUTH THREE TIMES DAILY NEEDED 07/29 completed Not Available Not Available Not Available Zoloft 50 mg tablet take 1 tablet by oral route every day 04/14 completed Prescrib ed Elsewher e: No Locat ion: [facility] odify By: héctor Maravilla nter DateTime : 04/27/19 17 03:15:00 PM Not Available Not Available Not Available cephalexi n 500 mg capsule TAKE 1 CAPSULE BY MOUTH EVERY 8 HOURS active Not Available Not Available No t Available Cipro 500 mg tablet take 1 tablet by oral route every 12 hours 04/14 completed Prescrib ed Elsewher e: No [facility] By: héctor Maravilla nter DateTime [...] Elsewher e: Yes Loca tion: [facility] odify By: kj Baer ncounter DateTime : 05/03/19 13 11:30:00 AM Not Available Not Available Not Available Vitamin D2 1,250 mcg (50,000 unit) capsule take 1 capsule (06556CV ITS) by oral route every week 05/30 completed Prescrib ed Elsewher e: No [facility] odify By: chaya hills DateTime : 06/11/19 13 02:49:38 PM Not Available Not Available Not Available Zoloft 100 mg tablet take 1 tablet by oral route every day 04/27 completed Prescrib ed Elsewher e: No Locat ion: [facility]i ba[facility] odify By: héctor Maravilla nter DateTime : [...] Elsewher e: No Locat ion: [facility] buffy [facility] odify By: héctor Maravilla nter DateTime : 07/29/19 16 08:09:21 AM Not Available Not Available Not Available loratadin e 10 mg tablet TAKE 1 TABLET BY MOUTH DAILY 02/12 completed Not Available Not Available Not Available buspirone 15 mg tablet take 1 tablet by oral route 2 times every day 07/29 completed Prescrib ed Elsewher e: No Locat ion: [facility] ba[facility] odify By: héctor Maravilla nter DateTime : 11/10/19 17 11:30:00 AM Not Available Not Available Not Available NuvaRing 0.12 mg-0.015 mg/24 hr vaginal insert 1 vaginal ring by vaginal route every month leave in place for 3 weeks, remove for 1 week 05/03 completed Prescrib ed Elsewher e: No Locat ion: [facility] ba[facility] odify By: héctor Maravilla nter DateTime : 10/12/19 19 11:00:00 AM Not Available Not Available Not Available escitalop curtis 20 mg tablet TAKE 1 TABLET BY MOUTH DAILY 01/19 completed Not Available Not Available Not Available Lexapro 10 mg tablet take 1 tablet by oral route every day 10/11 completed Prescrib ed Elsewher e: No Locat ion: [facility] odify By: tahira Baer ncounter DateTime : 04/14/19 18 10:45:00 AM Not Available Not Available Not Available Mononessa (28) 0.25 mg-35 mcg tablet take 1 tablet by oral route every day 01/21 completed Prescrib ed Elsewher e: No Locat ion: [facility] ba[facility] odify By: héctor Maravilla nter DateTime : [...] Elsewher e: Yes Loca tion: [facility] ba[facility] odify By: wale Baer ncounter DateTime : 05/03/19 13 11:30:00 AM Not Available Not Available Not Available Triveen-D uo DHA 29 mg-1 mg-400 mg oral pack take 2 by Oral route every day for 30 days 06/01 completed Prescrib ed Elsewher e: No Locat ion: [facility] Santosh villegas By: wale duarte DateTime : 05/03/19 13 11:30:00 AM Not Available Not Available Not Available BinaxNOW COVID-19 Ag Self Test kit TEST DIRECTED TODAY active Not Available Not Available No t Available Vitals Date Recorded Systolic blood pressure Diastolic blood pressure Provider Name and Address Organization Details Last Updated DateTime 07/29/2021 122 mm[Hg] 74 mm[Hg] Aide Yip, [facility]- [address], [place], [address], [facility] 07/29/2021 15:47:12 Date Recorded Body height Body mass index (BMI) Body weight Provider Name and Address Organization Details Last Updated DateTime 07/29/2021 161.29 cm 27.7 kg/m2 28841.75 g [facility] 07/29/2021 15:38:01 Date Recorded Body height Body mass index (BMI) Body weight Systolic blood pressure Diastolic blood pressure Provider Name and Address Organization Details Last Updated DateTime 10/09/2020 172.72 cm 26.1 kg/m2 66370.45 g 128 mm[Hg] 81 mm[Hg] Jo-Ann [facility] 16:51:51 Date Recorded Body height Body mass index (BMI) Body weight Systolic blood pressure Diastolic blood pressure Provider Name and Address Organization Details Last Updated DateTime 01/19/2023 161.29 cm 30.3 kg/m2 95338.07 g 123 mm[Hg] 82 mm[Hg] Sarahi Agrawal [facility] 14:42:19 Date Recorded Body height Body mass index (BMI) Body weight Systolic blood pressure Diastolic blood pressure Provider Name and Address Organization Details Last Updated DateTime 02/14/2024 161.29 cm 28.1 kg/m2 06946.37 g 126 mm[Hg] 85 mm[Hg] Alondra Winter [facility] 12:01:50 Date Recorded Body height Body mass index (BMI) Body weight Provider Name and Address Organization Details Last Updated DateTime 03/04/2023 161.29 cm 30.7 kg/m2 56502.54 g Radha Winkler [facility] 03/04/2023 12:22:39 Social History Question Answer Notes LastModified by [employer] ion Details LastModified Time Tobacco Smoking Status Current Some Day Smoker social smoker [facility] 01/19/2023 14:44:27 Are You Blind Or Do You Have Difficulty Seeing? No Information not available 10/09/2020 What Is Your Level Of Caffeine Consumption? None [email or web address] Information not available 05/03/2020 Are You Deaf [...] Functional Status Question Answer Note LastModified by Where Was it Filmedizat ion Details LastModified Time Do you use any illicit or recreational drugs? No [email or web address] Information not available 05/03/2020 Do you or have you ever used any other forms of tobacco or nicotine? No [email or web address] Information not available 05/03/2020 What is your level of alcohol consumption? None [email or web address] Information not available 05/03/2020 Are you able [...] anxious, or unable to sleep at night)? [id number] Information not available 10/09/2020 Family History Relationship Description Onset Age of this Age Resolved Age Notes LastModified by Organization Details LastModified Time Mother Hypertensive disorder Not available 2020 12:50:44 Medical History Condition [...] SNOMED-CT Code Diagnosis ICD10 Code Diagnosis Note [id number] Aide Yip [facility] [address] [address] 05/03/2020 12:50:51 05/03/2020 17:01:36 Gynecologic examination 22411432 Z01.419 Take Calcium with Vitamin D 1200mg [...] Ely No issues or quesitons. Cystic acne 52481503 L70 .0 Will have updated labs from PCP sent so we do not have to repeat CMP. Has been on these meds for >1yr very stable. [id number] Aide Yip , [facility] [address] [address] 10/09/2020 16:20:21 10/10/2020 14:15:55 Dyspareunia 37093511 N94.10 Exam wnlWill monitorIf occurs again can [...] this patient s visit, including available hand loan consultant upon arrive, temperatur e check and being asked a series of screening questions. All staff wore face coverings during this encounter, as well as provided additional cleaning and sanitizing of all surfaces, including countertop s, pens, chairs, door handles, light switches, etc, prior to and following the patient s visit. Anxiety 02719394 F41.9 Lost PCP who is out of her network now.1-RF of lorazepam given with instructio ns to use sparingly; and also needs to est care with a new PCP to take over this medication as it is not something that is routinely prescribed here.Agree able to help with referral [id number] Aide Yip , [facility] [address] [address] 07/29/2021 15:19:39 07/29/2021 16:07:09 Gynecologic examination 91014418 Z01.419 Take Calcium with Vitamin D 1200mg [...] Screen na Routine Labs na Cystic acne 77628018 L70 .0 Will have updated labs from PCP sent so we do not have to repeat CMP. Has been on these meds for >2yr very stable. [id number] ANTHONY Nicole Randolph [address] [address] 01/19/2023 14:32:17 01/19/2023 15:50:08 Gynecologic examination 42826398 Z01.419 [facility] - OCPr/b/a reviewedre fills sent x 12 [...] plan if desired. Venereal d isease screening 136806464 Z11.3 Sexually t ransmitted infectious disease 8857951 A64 Cystic acne 63465637 L70 .0 Will have updated labs from PCP sent so we do not have to repeat CMP.Has been on these meds for >3yr very stable and wishes to continuesh buffy is aware of the risk/benef its of OCP given her medical hx, she is not interested in progestero ne only methods at this time [id number] ANTHONY Nicole Randolph [address] [address] 03/04/2023 11:56:28 03/04/2023 12:43:34 Infection by Trichomonas 69443833 A59.9 gc/ct/tric h testing sentrecomm ended retreatmen [...] plan of care. Venereal d isease screening 283904013 Z11.3 [id number] ANTHONY Nicole Randolph [address] [address] 02/14/2024 11:46:43 02/14/2024 12:54:07 Gynecologic examination 76726108 Z01.419 Z11.51 Z11.8 Z11.3 WWEpap updatedgc/ ct/trich [...] have been answered. Contracept ion care management 800112190 Z30.9 discussed progestero ne only options d/t h/o migraine with aurarx sent for POP, r/b/a reviewed Venereal d isease screening 409976744 Z11.3 Acne 20910680 L70.9 Desires to continue spironolac tone for acneyearly CMP orderedref ills sent, r/b/a reviewed Sexually t ransmitted infectious disease 5556912 A64 Cystic acne 43826770 L70 .0 Health Concerns Section Related Observation LastModified by Organization Detai ls LastModified Time None Recorded Concern Status LastModified by Organization Details LastModified Time None Recorded Advance Directives Directive None Recorded Payers Encounter Date Sequence Insurance Name Policy Number Policy Lau Covered Member ID Lau Member ID Guarantor Name 10/09/2020 1 [facility] ON OR AFTER 09/26/20 (MEDICAID REPLACEMENT - HMO) Pooja Khoury [id number] Pooja Khoury 07/29/2021 1 [facility] ON OR AFTER 09/26/20 (MEDICAID REPLACEMENT - HMO) Pooja Khoury [id number] Pooja Khoury 01/19/2023 1 [facility] ON OR AFTER 09/26/20 (MEDICAID REPLACEMENT - HMO) Pooja Khoury [id number] Pooja Khoury 03/04/2023 1 [facility] ON OR AFTER 09/26/20 (MEDICAID REPLACEMENT - HMO) Pooja Khoury [id number] Pooja Khoury 02/14/2024 1 [facility] ON OR AFTER 09/26/20 (MEDICAID REPLACEMENT - HMO) Pooja Khoury [id number] Pooja Khoury Notes Date Note Type Note [...] will take over her Rx's. Aide Yip [facility] [address], [place], [address], [facility] 10/09/2020 17:46:31 2 text/html Annual GYNReported [...] and high risk HPV typing Aide Yip [facility] [address], [place], [address], [facility] 07/29/2021 16:00:56 3 text/html Annual GYNReported [...] starting age 39Notes:hx of asymptomatic mitral valve prolapsePCP/direct care specialist aware pt is on OCP, however does not require routine cardiology visiton spironolactone and OCP for acne, recently had CMP at PCP office that was normal per pt. Wants to continue with these medications hx of abnormal papslast abnormal 2011, HPV (+)last pap 07/2021, normal denies hx of DVT/PE, HTN, Stroke/[place], cancer, liver disease, or migraine with aurashe is a non-smoker ANTHONY Nicole [address], [place], [address], [facility] 01/19/2023 15:21:56 3 text/html 32yo [id number] for STI testing(+) trichomonas 01/19/2023 - completed treatment. Partner has not been treated, has been SA with condomsno vaginal symptomsneg pelvic painOCP for BC ANTHONY Nicole [address], [place], [address], [facility] 03/04/2023 12:43:21 4 text/html Annual GYNReported [...] with aura ANTHONY Nicole [address], [place], [address], [facility] 02/14/2024 12:53:35 OBGyn Episode Ob Episode Information Episode Created Date Number of Fetuses Patient Bloodtype Patient rh Status Prepregnancy Weight lbs Domestic Partner Domestic Partner Phone Father Name Animal Rides Manager Status 05/03/19 21 1 CLOSED Fetus Data [...] Domestic Partner Domestic Partner Phone Father Name Animal Rides Manager Status 10/10/19 21 1 CLOSED Fetus Data First Name Last Name Admitted to NICU Weight (g) Sex Living Outcome Pediatric Complications Fetus ID Race Codes Race Delivery Type , Induced [id number] García Calculation Initial García Date Initial Exam [...]
--- OUTSIDE RECORDS SUMMARY | 2024-08-24 13:45 | XMS_ITS | Clinical Summary ---
Author Organization [facility] Address [address] [place] [address] Care Team Providers Care Golf Club Repairer Name Role Phone Patricia Martinez APRN-HOME CARE ASSOCIATE Primary Care Provider [phone] Source Comments [facility],non-owned Affiliates and Associated Physician Practices is amultiple site organization consisting of ambulatory clinics and hospital sitesin [place] and [place]. This disclosure is being madepursuant to the Care Everywhere program and may not contain all information available regarding this patient. Last updated 17.[facility] Allergies Active Allergy Reactions Criticality Noted Date [...] on file Legal Sex Female 5:45 AM GLOBAL LEAD Gender Identity Not on file Sexual Orientation Not on file Last Filed Vital Signs Vital Sign Reading Time Taken Comments Blood Pressure 115/64 02/15/2019 1:56 PM GLOBAL LEAD Pulse 88 02/15/2019 1:56 PM GLOBAL LEAD Temperature 37.3 C (99.1 F) 02/15/2019 1:56 PM GLOBAL LEAD Respiratory Rate 20 02/15/2019 1:56 PM GLOBAL LEAD Oxygen Saturation 99% 02/15/2019 1:56 PM GLOBAL LEAD Inhaled Oxygen Concentration - - Weight 59.9 kg (132 lb) 02/15/2019 1:56 PM GLOBAL LEAD Height 160 cm (5' 3) 02/15/2019 1:56 PM GLOBAL LEAD Body Mass Index 23.38 02/15/2019 1:56 PM GLOBAL LEAD Plan of Treatment Health Maintenance Due Date [...] age to complete this topic Insurance [facility] MEDICAID - [place] Care Teams Golf Club Repairer Relationship Specialty Start Date End Date Patricia Martinez APRN-DARWIN [address] [place] [id number] PCP - General 12/28/18
--- OUTSIDE RECORDS SUMMARY | 2024-08-24 13:45 | XMS_ITS | Clinical Summary ---
Author Organization [facility] Care Team Providers Care Clinical Staff Rn Name Role Phone Unavailable Primary Care Provider Unavailabl e Social History Tobacco Use Types Packs/Day Years Used Date Smoking Tobacco: Never Assessed Comments Unknown Sex and Gender Information Value Date Recorded Sex Assigned at Not on file Legal Sex Female 2:16 PM DISTRIBUTION SPECIALIST Gender Identity Not on file Sexual [...]
== END 2024-08-24 13:42 | disposition home or self-care (01) ==
LOC: ANHIMG 13:43
PROVIDERS: PCP Nurse Practitioner Family; Visit Provider Nurse Practitioner Family
DX: R22.9 Localized swelling, mass and lump, unspecified (principal)
CPT/HCPCS: 76705

== ENCOUNTER 2024-08-29 11:38 | Outpatient (CLI) | payer OTHER, SELFPAY ==
--- NOTE | ~2024-08-29 | XR_ITS ---
PA, oblique, and lateral views of the left third finger CLINICAL HISTORY: Proximal phalangeal fracture COMPARISON: 08/15/2024 FINDINGS: Oblique fracture of the proximal phalanx of the third finger is present, with probable prog ressive interval healing. Stable osseous alignment. Joint spaces are intact. Soft tissues are unremar kable. IMPRESSION: Probable progressive healing of oblique fracture of the third proximal phalanx, with stable alignment . Reviewed, dictated and finalized at location M. IMPRESSION: Probable progressive healing of oblique fracture of the third proximal phalanx, with stable alignment.
--- OUTSIDE RECORDS SUMMARY | 2024-08-29 11:42 | XMS_ITS | Clinical Summary ---
Author Organization [facility] Address [address] [place] [address] Care Team Providers Care Security Delivery Specialist Name Role Phone Patricia Martinez APRN-CLAIMS REPRESENTATIVE Primary Care Provider [phone] Source Comments [facility],non-owned Affiliates and Associated Physician Practices is amultiple site organization consisting of ambulatory clinics and hospital sitesin [place], [place], [place] and [place]. This disclosure is being madepursuant to the Care Everywhere program and may not contain all information available regarding this patient. Last updated 17.[employer] [facility] Allergies Active Allergy Reactions Criticality Noted Date [...] on file Legal Sex Female 5:45 AM LOG DECKMAN Gender Identity Not on file Sexual Orientation Not on file Last Filed Vital Signs Vital Sign Reading Time Taken Comments Blood Pressure 115/64 02/15/2019 1:56 PM LOG DECKMAN Pulse 88 02/15/2019 1:56 PM LOG DECKMAN Temperature 37.3 C (99.1 F) 02/15/2019 1:56 PM LOG DECKMAN Respiratory Rate 20 02/15/2019 1:56 PM LOG DECKMAN Oxygen Saturation 99% 02/15/2019 1:56 PM LOG DECKMAN Inhaled Oxygen Concentration - - Weight 59.9 kg (132 lb) 02/15/2019 1:56 PM LOG DECKMAN Height 160 cm (5' 3) 02/15/2019 1:56 PM LOG DECKMAN Body Mass Index 23.38 02/15/2019 1:56 PM LOG DECKMAN Plan of Treatment Health Maintenance Due Date [...] age to complete this topic Insurance [facility] MEDICAID - [place] Care Teams Security Delivery Specialist Relationship Specialty Start Date End Date Patricia Martinez APRN-DARWIN [address] [place] [id number] PCP - General 12/28/18
--- OUTSIDE RECORDS SUMMARY | 2024-08-29 11:42 | XMS_ITS | Clinical Summary ---
Author Organization [facility] Care Team Providers Care House Piping Inspector Name Role Phone Unavailable Primary Care Provider Unavailabl e Social History Tobacco Use Types Packs/Day Years Used Date Smoking Tobacco: Never Assessed Comments Unknown Sex and Gender Information Value Date Recorded Sex Assigned at Not on file Legal Sex Female 2:16 PM TOOL GRINDER Gender Identity Not on file Sexual Orientation [...]
== END 2024-08-29 11:39 | disposition home or self-care (01) ==
PROVIDERS: PCP Nurse Practitioner Family; Visit Provider Physician Assistant Surgical
DX: S62.613D Displaced fracture of proximal phalanx of left middle finger, subsequent encounter for fracture with routine healing (principal); X58.XXXD Exposure to other specified factors, subsequent encounter
CPT/HCPCS: 73140

== ENCOUNTER 2024-10-28 13:33 | Emergency (ER) | payer OTHER, SELFPAY ==
--- NOTE | ~2024-10-28 | XR_ITS ---
EXAM: XR toe 1st RT min 2V DATE: 10/28/2024 13:57 HISTORY: RT toe injury slipped off rocks . COMPARISON: X-ray foot 05/05/2024. FINDINGS: Normal mineralization. Comminuted, nondisplaced fracture of the right first proximal phala nx, with intra-articular extension to the interphalangeal joint. No lytic or blastic lesion. Joint sp aces are maintained. No erosion or periosteal change. Soft tissue swelling over the fracture site. IMPRESSION: Comminuted nondisplaced intra-articular fracture of the right first proximal phalanx. Reviewed, dictated and finalized at location K.
--- OUTSIDE RECORDS SUMMARY | 2024-10-28 13:35 | XMS_ITS | Clinical Summary ---
Author Organization [facility] Address [address] [place] [address] Care Team Providers Care Die Sinker Name Role Phone Patricia Martinez HODAN Primary Care Provider [phone] Allergies Active Allergy Reactions Criticality Noted Date [...] 60 g 0 Active VITAMIN D2, ERGOCALCIFEROL, 35832 UNITS capsuleIndicati ons:Vitamin D deficiency TAKE 1 [...] 1:03 PM CDT Height 161.3 cm (5' 3.5) 07/18/2019 1:03 PM CDT Body Mass Index 23.19 07/18/2019 1:03 PM CDT Plan of Treatment Health Maintenance Due Date Last Done Comments Cervical Cancer Screening Pa p Smear (Age 30 to 64) Every 3 Years 1989 Hepatitis C 05/29/2007 Pneumococcal Vaccine: Pediatrics (0 to 5 Years) and At-Risk Patients (6 to 49 Years) (1 of 2 - PCV) 2008 HPV Vaccines (1 - 3-dose SCD M series) 2016 Cervical Cancer Screening Pa p with HPV Testing (Age 30 to 64) Every 5 Years 05/29/2019 Cervical Cancer Screening wi th HPV 05/29/2019 Hepatitis B Vaccines (2 of 3 - 19+ 3-dose series) 08/29/2019 08/01/2019 Annual Physical 07/17/2020 07/18/2019 COVID-19 Vaccine (1 - 2023-2 5 season) 2023 DTaP, Tdap and Td Vaccines ( 2 - Td or Tdap) 04/04/2024 04/04/2014, 10/22/1994 Meningococcal B Vaccine Aged Out No l onger eligible based on patient's age to complete this topic Meningococcal Vaccine Aged Out No venus abelardo eligible based on patient's age to complete this topic RSV Immunizations Under 20 Months Aged Out No longer eligible b ased on patient's age to complete this topic Insurance [employer] Care Teams Die Sinker Relationship Specialty Start Date End Date Patricia Martinez FNP [address] [place], [place] [id number] PCP - General NURSE PRACTITIONER 03/29/17
--- OUTSIDE RECORDS SUMMARY | 2024-10-28 13:35 | XMS_ITS | Clinical Summary ---
Author Organization [facility] Care Team Providers Care Heater Tender Name Role Phone Unavailable Primary Care Provider Unavailabl e Social History Tobacco Use Types Packs/Day Years Used Date Smoking Tobacco: Never Assessed Comments Unknown Sex and Gender Information Value Date Recorded Sex Assigned at Not on file Legal Sex Female 2:16 PM FILLER SHAKER Gender Identity Not on file Sexual Orientation Not on file Plan of Treatment Health Maintenance Due Date Last Done Comments Hepatitis C Virus (HCV) Screening 1989 Human Papillomavirus (HPV) Immunization (1 - 3-dose series) 2004 Pap Smear 2010 Cervical Cancer Screening (CCS) 05/29/2019 HPV/Cotest 05/29/2019 Hepatitis B Immunization (2 of 3 - 19+ 3-dose series) 08/29/2019 08/01/2019 SARS-COV-2 Immunization (2023- season) 2023 Influenza Immunization (#1) 2024 01/27/2019 Respiratory Syncytial Virus (RSV) Immunization (Adult) (1 [...]
--- OUTSIDE RECORDS SUMMARY | 2024-10-28 13:35 | XMS_ITS | Clinical Summary ---
Author Organization [facility] Address [address] [place] [address] Care Team Providers Care Manual Arts Therapist Name Role Phone Patricia Martinez APRN-PMO CONSULTANT Primary Care Provider [phone] Source Comments [facility],non-owned Affiliates and Associated Physician Practices is amultiple site organization consisting of ambulatory clinics and hospital sitesin [place], [place], [place] and [place]. This disclosure is being madepursuant to the Care Everywhere program and may not contain all information available regarding this patient. Last updated 17.[facility] Allergies Active Allergy Reactions Criticality Noted Date [...] on file Legal Sex Female 5:45 AM MANUAL TESTER Gender Identity Not on file Sexual Orientation Not on file Last Filed Vital Signs Vital Sign Reading Time Taken Comments Blood Pressure 115/64 02/15/2019 1:56 PM MANUAL TESTER Pulse 88 02/15/2019 1:56 PM MANUAL TESTER Temperature 37.3 C (99.1 F) 02/15/2019 1:56 PM MANUAL TESTER Respiratory Rate 20 02/15/2019 1:56 PM MANUAL TESTER Oxygen Saturation 99% 02/15/2019 1:56 PM MANUAL TESTER Inhaled Oxygen Concentration - - Weight 59.9 kg (132 lb) 02/15/2019 1:56 PM MANUAL TESTER Height 160 cm (5' 3) 02/15/2019 1:56 PM MANUAL TESTER Body Mass Index 23.38 02/15/2019 1:56 PM MANUAL TESTER Plan of Treatment Health Maintenance Due Date Last Done Comments HIV SCREENING 2004 HEPATITIS C SCREENING 05/24/2007 DTAP/TDAP/TD VACCINES (1 - Tdap) 2008 HEPATITIS B VACCINE (1 of 3 - 19+ 3-dose series) 2008 HPV VACCINE (1 - 3-dose SCDM series) 2016 COVID-19 VACCINE (1 - 2023-2 5 season) 2023 DEPRESSION SCREENING 03/29/2024 INFLUENZA VACCINE (#1) 2024 9, 01/10/2019 ZOSTER VACCINE (1 of 2) 05/29/2039 [...] patient's age to complete this topic Insurance [facility] MEDICAID - [place] Care Teams Manual Arts Therapist Relationship Specialty Start Date End Date Patricia Martinez APRN-DARWIN [address] [place] [id number] PCP - General 12/28/18
[2024-10-28 13:39] VITALS: BP 143/92; PULSE 78; RESP 16; TEMP 37; O2SAT 100
--- NOTE | 2024-10-28 13:51 | ED.GENADULT ---
HPI - General Adult General Chief complaint: Extremity Injury, Lower Stated complaint: Injury to right big toe Time Seen by Provider: 10/28/24 13:37 History of Present Illness HPI narrative: 34-year-old female presents emergency department for evaluation for right toe pain. Patient reports she jumped into a river on and injured her right great toe. Patient denies any other pain or injury. Patient does have ecchymosis and pain to the right great toe Related Data Home Medications ?Medication ?Instructions ?Recorded ?Confirmed ?Last Taken ?Type norethindrone (contraceptive) 0.35 0.35 mg PO DAILY 05/03/24 07/20/24 07/19/24 History mg tablet (Julianna) Allergies Allergy/AdvReac Type Severity Reaction Status Date / Time Sulfa (Sulfonamide AdvReac Nausea Verified 10/28/24 13:34 Antibiotics) Review of Systems Review of Systems: All systems reviewed & are unremarkable except as noted in HPI and below PMFSH Past Medical History Medical History (Updated 10/28/24 @ 14:08 by Xu Sanchez MD) Elevated C-reactive protein (CRP) Speech abnormality Congenital tongue-tie Tongue tied Localized swelling, mass and lump, unspecified Hand paresthesia Insomnia Abdominal bloating BMI 29.0-29.9,adult Otitis media Strain of neck muscle BMI 28.0-28.9,adult Cystic acne Elevated fasting glucose Acne BMI 26.0-26.9,adult Depression Acephalgic migraine Encounter to establish care BMI 27.0-27.9,adult Ophthalmic migraine Right shoulder pain Right foot pain Anxiety Mitral valve prolapse Surgical History Surgical History No pertinent past surgical history Family History Family History Mother Hypertension Depression Father Non Hodgkin's lymphoma Sibling Depression Grandparent Breast cancer Bladder cancer Esophageal cancer Grandparent Cancer Social History Social History Smoking status: Former smoker Tobacco type: cigarettes Second hand tobacco smoke exposure: Yes Additional smoking assessment comments: patient reports social smoking Alcohol intake: current Drinks per week: 6 Substance use: former Substance use type: marijuana and other Other substance usage details: cocaine Lack of Transportation: No Lack of Food: Never True Current Housing: I Have Housing Concerned About Future Housing: No Difficulty Paying Gas/Electric Bills: No Difficulty Paying for Meds: No Currently Unemployed: No Education: Associate Degree Difficulty w/ Childcare or Family Care: No Living arrangements: with family Spiritual care concerns: No Exam Narrative: APPEARANCE: Well appearing, no pain, no distress, well-nourished. HEAD: normocephalic, atraumatic. EYES: PERRLA/EOMI, conjunctivae clear. NOSE: Normal no drainage EARS:TMS clear with good light reflex. THROAT: Pharynx clear, no exudate. NECK: Supple. No adenopathy, no masses. RESPIRATORY: Airway patent, respirations nonlabored. Clear to auscultation bilaterally, no rales, rhonchi, wheezing. CARDIOVASCULAR: Regular rate and rhythm without murmurs rubs or gallops. ABDOMINAL: Soft, nontender, nondistended, normal bowel sounds MUSCULOSKELETAL: Ecchymosis to right great toe NEURO: Alert. Cranial nerves II through XII intact. Good gait. Good coordination SKIN: Warm, dry. Normal Color PSYCHIATRIC: Normal affect/mood. Course Vital Signs Vital signs: Vital Signs Temperature 98.6 F 10/28/24 13:39 Pulse Rate 78 10/28/24 13:39 Respiratory Rate 16 10/28/24 13:39 Blood Pressure 143/92 H 10/28/24 13:39 Pulse Oximetry 100 10/28/24 13:39 Temperature 98.6 F 10/28/24 13:39 Pulse Rate 78 10/28/24 13:39 Respiratory Rate 16 10/28/24 13:39 Blood Pressure 143/92 H 10/28/24 13:39 Pulse Oximetry 100 10/28/24 13:39 Medical Decision Making [facility] Narrative Medical decision making narrative: 34-year-old female presents emergency department for evaluation for toe pain. X-ray does show a oblique fracture of the proximal phalanx of the great toe. Patient was noé taped and a metal splint was placed over the toe to protected from accidental blood pain. Patient was provided crutches and a hard-soled shoe. Patient was encouraged of close follow-up with Orthopedics. Differential Diagnosis Differential Diagnosis: Toe fracture, toe contusion, foot fracture Vital Signs Vital Signs: Vital Signs Temperature 98.6 F 10/28/24 13:39 Pulse Rate 78 10/28/24 13:39 Respiratory Rate 16 10/28/24 13:39 Blood Pressure 143/92 H 10/28/24 13:39 Pulse Oximetry 100 10/28/24 13:39 Temperature 98.6 F 10/28/24 13:39 Pulse Rate 78 10/28/24 13:39 Respiratory Rate 16 10/28/24 13:39 Blood Pressure 143/92 H 10/28/24 13:39 Pulse Oximetry 100 10/28/24 13:39 Imaging Data Radiologist's impression: Impressions Toe X-Ray 10/28/24 14:00 IMPRESSION: Comminuted nondisplaced intra-articular fracture of the right first proximal phalanx. Discharge Plan Discharge Clinical Impression: Fracture of toe Patient Disposition: Home Condition: Stable Instructions: Antibiotic Form, Toe Fracture (ED) Additional Instructions: Noé-taped toe as directed. Have close follow-up with Orthopedics. If you have any worsening symptoms then please call or return to the emergency department. Patient Language: Portuguese Prescriptions: New hydrocodone-acetaminophen 5-325 mg tablet 1 tablet PO Q12H PRN (Reason: pain) Qty: 14 0RF No Action norethindrone (contraceptive) [Julianna] 0.35 mg tablet 0.35 mg PO DAILY tretinoin 0.025 % cream 1 applic topical QHS Qty: 45 3RF hydroxyzine pamoate [Vistaril] 25 mg capsule 25 mg PO QHS PRN (Reason: sleep) Qty: 30 11RF spironolactone 50 mg tablet 50 mg PO DAILY Qty: 90 3RF fluoxetine 20 mg capsule 20 mg PO DAILY Qty: 90 3RF fluoxetine 10 mg capsule 10 mg PO DAILY Qty: 90 3RF Rx Instructions: take with fluoxetine 20mg cap to equal 30mg daily quetiapine 50 mg tablet 50 mg PO QHS Qty: 90 3RF hydrocodone-acetaminophen 5-325 mg tablet 1 tablet PO Q6H PRN (Reason: pain) Qty: 12 0RF Follow-up/Referrals: Tacos Leroy MD [Physician] - Alla Salinas NP [Primary Care Provider] -
== END 2024-10-28 14:39 | disposition home or self-care (01) ==
PROVIDERS: Emergency Provider Emergency Medicine; PCP Nurse Practitioner Family
DX: S92.414A Nondisplaced fracture of proximal phalanx of right great toe, initial encounter for closed fracture (principal); I34.1 Nonrheumatic mitral (valve) prolapse; F41.9 Anxiety disorder, unspecified; F32.A Depression, unspecified; F17.210 Nicotine dependence, cigarettes, uncomplicated; Z79.899 Other long term (current) drug therapy
CPT/HCPCS: 73660; 99284